=== PATIENT | male | born 1935 | race Caucasian/White ===

== ENCOUNTER 2016-10-06 15:12 | Observation (INO) | payer BC, MEDICARE ==
[2016-10-06] MEDS ORDERED: SODIUM CHLORIDE 0.9% 1,000 ML IV STA (15:51)
[2016-10-06 16:15] LABS: Basophils % (A) 0 %; CH 28.8; CHCM 31.8; Eosinophils # (A) 0.1 k/uL (0-0.7); Eosinophils % (A) 1 %; HCT 46.7 % (39.0-53.0); HDW 2.31; Luc # (Auto) 0.18; Luc % (Auto) 2; Lymphocytes # (A) 1.5 k/uL (1.0-4.8); Lymphocytes % (A) 16 %; MCH 29.1 pg (25.0-35.0); MCV 90.9 fL (80.0-100.0); Mean Platelet Volume 7.2; Monocytes # (A) 0.8 k/uL (0-1.0); Monocytes % (A) 8 %; Neutrophils % (A) 73 %; RBC 5.14 m/uL (4.30-5.90); RDW 12.4 % (11.5-15.5); WBC 9.6 k/uL (3.8-10.6); WBC (Perox) 9.75
[2016-10-06 16:29] LABS: ALT 33 U/L (21-72); AST 40 U/L (17-59); Alkaline Phosphatase 93 U/L (38-126); Anion Gap 14 mmol/L; Blood Urea Nitrogen 14 mg/dL (9-20); Calcium 9.3 mg/dL (8.4-10.2); Carbon Dioxide 24 mmol/L (22-30); Chloride 103 mmol/L (98-107); Glucose 91 mg/dL (74-99); Magnesium 2.1 mg/dL (1.6-2.3); Non-African American GFR(MDRD) >60 (>60 ml/min/1.73 sqM); Potassium 4.5 mmol/L (3.5-5.1); Sodium 141 mmol/L (137-145); Total Bilirubin 0.6 mg/dL (0.2-1.3); Total Protein 6.8 g/dL (6.3-8.2)
--- NOTE | 2016-10-06 16:29 | ED ---
General Adult HPI - General Chief complaint: Recheck/Abnormal Lab/Rx Stated complaint: coughing up blood-sent by Time Seen by Provider: 10/06/16 15:51 Source: patient, RN notes reviewed, old records reviewed Mode of arrival: EMS Limitations: no limitations - History of Present Illness Initial comments: This is an 81-year-old male the ER for evaluation today. Patient comes in for basically episodes of hemoptysis or coughing up blood. Patient has no specific medical history. He did did have an outpatient CT and was told to come the emergency room. Patient states started with sinus congestion that he began to have episodes of vomiting blood. He denies chest pain or shortness of breath. Denies any other prior history or issues of similar symptoms. Patient states palpation CT had a positive result of likely mass and he was sent to the ER here for evaluation. Patient does admit to taking steroids recently - Related Data Home Medications Medication Instructions Recorded Confirmed Aspirin 81 mg PO DAILY 10/06/16 10/06/16 Atorvastatin [Lipitor] 40 mg PO DAILY 10/06/16 10/06/16 Docusate Sodium [Stool Softener] 100 mg PO DAILY 10/06/16 10/06/16 Enalapril [Vasotec] 10 mg PO DAILY 10/06/16 10/06/16 Metoprolol Tartrate [Lopressor] 50 mg PO DAILY 10/06/16 10/06/16 Multivitamins, Thera [Multivitamin 1 tab PO DAILY 10/06/16 10/06/16 (formulary)] [place]-3 Fatty Acids/Fish Oil [Fish 1 cap PO DAILY 10/06/16 10/06/16 Oil 1,000 mg Capsule] glyBURIDE [Diabeta] 5 mg PO DAILY 10/06/16 10/06/16 Allergies Allergy/AdvReac Type Severity Reaction Status Date / Time No Known Allergies Allergy Verified 10/06/16 15:48 Review of Systems ROS Statement: Those systems with pertinent positive or pertinent negative responses have been documented in the HPI. ROS Other: All systems not noted in ROS Statement are negative. Past Medical History Past Medical History: Diabetes Mellitus, Hyperlipidemia, Hypertension History of Any Multi-Drug Resistant Organisms: None Reported Past Surgical History: Coronary Bypass/CABG, Orthopedic Surgery, Prostate Surgery Additional Past Surgical History / Comment(s): bypass 2003, hemorrhoid sx 1976, right hand sx, rotorary cuff tear Past Psychological History: No Psychological Hx Reported Smoking Status: Former smoker Past Alcohol Use History: None Reported Past Drug Use History: None Reported General Exam Limitations: no limitations General appearance: alert, in no apparent distress Head exam: Present: atraumatic, normocephalic, normal inspection Eye exam: Present: normal appearance, PERRL, EOMI. Absent: scleral icterus, conjunctival injection, periorbital swelling ENT exam: Present: normal exam, mucous membranes moist Neck exam: Present: normal inspection. Absent: tenderness, meningismus, lymphadenopathy Respiratory exam: Present: normal lung sounds bilaterally. Absent: respiratory distress, wheezes, rales, rhonchi, stridor Cardiovascular Exam: Present: regular rate, normal rhythm, normal heart sounds. Absent: systolic murmur, diastolic murmur, rubs, gallop, clicks GI/Abdominal exam: Present: soft, normal bowel sounds. Absent: distended, tenderness, guarding, rebound, rigid Extremities exam: Present: normal inspection, full ROM, normal capillary refill. Absent: tenderness, pedal edema, joint swelling, calf tenderness Back exam: Present: normal inspection Neurological exam: Present: alert, oriented X3, CN II-XII intact Psychiatric exam: Present: normal affect, normal mood Skin exam: Present: warm, dry, intact, normal color. Absent: rash Course Vital Signs 10/06/16 10/06/16 10/06/16 15:23 16:29 17:00 Temperature 98.1 F Pulse Rate 77 73 74 Respiratory 18 18 18 Rate Blood Pressure 156/72 159/69 159/69 O2 Sat by Pulse 95 96 97 Oximetry - Reevaluation(s) Reevaluation #1: 10/06/16 17:05 Attempting to obtain patient's CAT scan done as an outpatient through [facility] Reevaluation #2: 10/06/16 17:51 Patient remains a symptomatically at this time EKG Findings - EKG Comments: EKG Findings:: EKG shows sinus rhythm rate of 76, NH 122, QRS 102, QTc 456 Medical Decision Making - Medical Decision Making 81 male the ER who is at this time is relatively asymptomatic increased cough and congestion positive hemoptysis coming in for evaluation, positive thoracic mass, lymph node mass with SVC compression. Patient be admitted for oncologic evaluation - Lab Data Result diagrams: 10/06/16 16:04 05/24/17 16:04 Lab Results 10/06/16 10/06/16 10/06/16 Range/Units 16:04 16:04 16:04 WBC 9.6 (3.8-10.6) k/uL RBC 5.14 (4.30-5.90) m/uL Hgb 15.0 (13.0-17.5) gm/dL Hct 46.7 (39.0-53.0) % MCV 90.9 (80.0-100.0) fL MCH 29.1 (25.0-35.0) pg MCHC 32.0 (31.0-37.0) g/dL RDW 12.4 (11.5-15.5) % Plt Count 192 (150-450) k/uL Neutrophils % 73 % Lymphocytes % 16 % Monocytes % 8 % Eosinophils % 1 % Basophils % 0 % Neutrophils # 7.0 (1.3-7.7) k/uL Lymphocytes # 1.5 (1.0-4.8) k/uL Monocytes # 0.8 (0-1.0) k/uL Eosinophils # 0.1 (0-0.7) k/uL Basophils # 0.0 (0-0.2) k/uL PT (9.0-12.0) sec INR (<1.1) APTT (22.0-30.0) sec Sodium 141 (137-145) mmol/L Potassium 4.5 (3.5-5.1) mmol/L Chloride 103 (98-107) mmol/L Carbon Dioxide 24 (22-30) mmol/L Anion Gap 14 mmol/L BUN 14 (9-20) mg/dL Creatinine 1.00 (0.66-1.25) mg/dL Est GFR (MDRD) Af Amer >60 (>60 ml/min/1.73 sqM) Est GFR (MDRD) Non-Af >60 (>60 ml/min/1.73 sqM) Glucose 91 (74-99) mg/dL Calcium 9.3 (8.4-10.2) mg/dL Phosphorus 4.0 (2.5-4.5) mg/dL Magnesium 2.1 (1.6-2.3) mg/dL Total Bilirubin 0.6 (0.2-1.3) mg/dL AST 40 (17-59) U/L ALT 33 (21-72) U/L Alkaline Phosphatase 93 (38-126) U/L Total Creatine Kinase 61 (55-170) U/L CK-MB (CK-2) 1.8 (0.0-2.4) ng/mL CK-MB (CK-2) Rel Index 3.0 Troponin I <0.012 (0.000-0.034) ng/mL Total Protein 6.8 (6.3-8.2) g/dL Albumin 4.1 (3.5-5.0) g/dL 10/06/16 Range/Units 16:04 WBC (3.8-10.6) k/uL RBC (4.30-5.90) m/uL Hgb (13.0-17.5) gm/dL Hct (39.0-53.0) % MCV (80.0-100.0) fL MCH (25.0-35.0) pg MCHC (31.0-37.0) g/dL RDW (11.5-15.5) % Plt Count (150-450) k/uL Neutrophils % % Lymphocytes % % Monocytes % % Eosinophils % % Basophils % % Neutrophils # (1.3-7.7) k/uL Lymphocytes # (1.0-4.8) k/uL Monocytes # (0-1.0) k/uL Eosinophils # (0-0.7) k/uL Basophils # (0-0.2) k/uL PT 11.1 (9.0-12.0) sec INR 1.1 (<1.1) APTT 23.9 (22.0-30.0) sec Sodium (137-145) mmol/L Potassium (3.5-5.1) mmol/L Chloride (98-107) mmol/L Carbon Dioxide (22-30) mmol/L Anion Gap mmol/L BUN (9-20) mg/dL Creatinine (0.66-1.25) mg/dL Est GFR (MDRD) Af Amer (>60 ml/min/1.73 sqM) Est GFR (MDRD) Non-Af (>60 ml/min/1.73 sqM) Glucose (74-99) mg/dL Calcium (8.4-10.2) mg/dL Phosphorus (2.5-4.5) mg/dL Magnesium (1.6-2.3) mg/dL Total Bilirubin (0.2-1.3) mg/dL AST (17-59) U/L ALT (21-72) U/L Alkaline Phosphatase (38-126) U/L Total Creatine Kinase (55-170) U/L CK-MB (CK-2) (0.0-2.4) ng/mL CK-MB (CK-2) Rel Index Troponin I (0.000-0.034) ng/mL Total Protein (6.3-8.2) g/dL Albumin (3.5-5.0) g/dL - Radiology Data Radiology results: report reviewed (CTA of chest does show conglomerate lymph node mass at the right paratracheal region extending to the precarinal region. It is having mass effect upon the SVC, other pulmonary nodules that suggest metastatic disease) Disposition Clinical Impression: SVC (superior vena cava obstruction) Narrative: Lymph Node Mass Disposition: ADMITTED IP TO THIS HOSP Condition: Fair Referrals: Maddi Bird MD [Primary Care Provider] - 1-2 days
[2016-10-06 16:31] LABS: INR 1.1 (<1.1); Partial Thromboplastin Time 23.9 sec (22.0-30.0); Prothrombin Time 11.1 sec (9.0-12.0)
[2016-10-06 16:33] LABS: Creatine Kinase 61 U/L (55-170)
[2016-10-06 16:46] LABS: Creatine Kinase MB 1.8 ng/mL (0.0-2.4); Troponin I <0.012 ng/mL (0.000-0.034)
[2016-10-06] MEDS ORDERED: SODIUM CHLORIDE 0.9% 1,000 ML IV ONE (17:48)
[2016-10-07] MEDS: LISINOPRIL 20 MG TAB PO SCH (08:26)
[2016-10-07] MEDS: glipiZIDE 10 MG TAB PO SCH (08:26)
[2016-10-07] MEDS: MULTIVITAMINS, THERA 1 EACH TAB PO SCH (08:26)
[2016-10-07] MEDS: ATORVASTATIN 40 MG TAB PO SCH (08:26)
[2016-10-07] MEDS: METOPROLOL TARTRATE 50 MG TAB PO SCH (08:27)
[2016-10-07] MEDS: ASPIRIN 81 MG CHEW PO SCH (08:27)
[2016-10-07] MEDS: DOCUSATE 100 MG CAP PO SCH (08:27)
[2016-10-07] MEDS ORDERED: ENOXAPARIN 40 MG/0.4 ML SYRINGE SQ SCH (09:00)
[2016-10-07] MEDS ORDERED: RX INFO: IV CONTRAST WAS GIVEN 1 EACH MISC MISCELLANE PRN (09:31)
[2016-10-07] MEDS ORDERED: DEXAMETHASONE ORAL 4 MG/ML VIAL PO SCH (09:45)
--- NOTE | 2016-10-07 10:32 | CT ---
EXAMINATION TYPE: CT brain w con DATE OF EXAM: 10/07/2016 10:25 AM COMPARISON: NONE HISTORY: Per patient history of lung cancer, possible mets. No complaints at time of scan CT DLP: 1081.6 mGycm Automated exposure control for dose reduction was used. CONTRAST: CT scan of the head is performed with IV Contrast, patient injected with 100 mL of Omnipaque 300. FINDINGS: There is no abnormal enhancing mass or midline shift identified. The ventricles and sulci are within normal limits in size. The globes are intact and the visualized sinuses are clear. IMPRESSION: Negative contrast enhanced head CT exam.
--- NOTE | 2016-10-07 11:26 | XR ---
EXAMINATION TYPE: XR chest 1V portable DATE OF EXAM: 10/07/2016 11:05 AM HISTORY: hemoptysis. REFERENCE: NONE. FINDINGS: The lungs are overinflated but clear. Pleural spaces are clear. Heart size is normal. IMPRESSION: COPD.
[2016-10-07] MEDS: DEXAMETHASONE 4 MG TAB PO SCH ×3 (11:51→23:33)
[2016-10-07] MEDS: PANTOPRAZOLE 40 MG/10 ML VIAL IVP SCH ×2 (11:52→20:41)
--- NOTE | 2016-10-07 12:19 | P.CNPUL ---
History of Present Illness Consult date: 10/07/16 Requesting physician: Aramis Dickerson Reason for consult: other (hemoptysis, abnormal CT of the chest.) Chief complaint: coughing up blood, and weight loss. History of present illness: this is an 81-year-old white male, remote smoking history, however he quit back over 40 years ago. Patient presented to his primary care physician with intermittent episodes of blood-tinged sputum for the last 5 days. He also mentioned a weight loss of 20 pounds over the last 6 months. Had no other symptoms, no fever no chills no chest pain. No nausea no vomiting no abdominal pain. Patient had a CT of the chest which clearly showed significantright paratracheal lymphadenopathy, and multiple pulmonary nodules as well as subcarinal lymphadenopathy. Patient was advised to come to the ER, and I was asked to see him on consultation.CT of the brain was done on admission and was basically negative.chest x-ray is suggestive of right paratracheal fullness, but apparently not as obvious as was reported on the CT of the chest. Unfortunately I have no access to the CT of the chest itself, but I was able to review the report which was sent with the patient. Family was advised to bring the CD from [facility] for review, I am planning bronchoscopy on this patient tomorrow in a.m.patient denies any headaches no blurred vision no dizziness. No chest pain no palpitations, no fever no chills, no shortness of breath, he does have mostly symptoms of hemoptysis. Denies any nausea or vomiting or abdominal pain, no melena no hematemesis is no dysuria frequency and urgency. Patient reports a weight loss of 20 pounds in the last 6 months. Review of Systems 14 point review of systems were obtained, please refer to pertinent positives and negatives in HPI. Past Medical History Past Medical History: Coronary Artery Disease (CAD), Diabetes Mellitus, Hyperlipidemia, Hypertension Additional Past Medical History / Comment(s): "leaky valve", shingles rt side 2012-has residual pain from it."torn rotator cuff-had therapy on it, "gets up at least 3 tiomes a night to urinate" History of Any Multi-Drug Resistant Organisms: None Reported Past Surgical History: Coronary Bypass/CABG, Heart Catheterization, Orthopedic Surgery, Prostate Surgery, Tonsillectomy Additional Past Surgical History / Comment(s): triple bypass 2003, hemorrhoid sx 1976, right carpal tunnel release sx, "sx to reem out prostate" Past Anesthesia/Blood Transfusion Reactions: No Reported Reaction Past Psychological History: No Psychological Hx Reported Additional Psychological History / Comment(s): PT LIVES WITH HIS MIRTA IN A SINGLE LEVEL HOME THAT HAS 2 STEPS TO ENTER. NO PETS. PT IS INDEPENDANT,NO OUTSIDE SERVICES RECEIVED, NO MEDICAL EQUIMENT. PT SERVED IN THE [employer]. RETIRED FROM [employer] -WORKED THERE FOR 39 YEARS. Smoking Status: Former smoker Past Alcohol Use History: Occasional Additional Past Alcohol Use History / Comment(s): STARTED SMOKING AT AGE 16, SMOKED 1 PPD, QUIT 2012 Past Drug Use History: None Reported - Past Family History Father Family Medical History: Myocardial Infarction ([place]) Mother Family Medical History: Congestive Heart Failure (CHF) Medications and Allergies Home Medications Medication Instructions Recorded Confirmed Type Aspirin 81 mg PO DAILY 10/06/16 10/06/16 History Atorvastatin [Lipitor] 40 mg PO DAILY 10/06/16 10/06/16 History Docusate Sodium [Stool Softener] 100 mg PO DAILY 10/06/16 10/06/16 History Enalapril [Vasotec] 10 mg PO DAILY 10/06/16 10/06/16 History Metoprolol Tartrate [Lopressor] 50 mg PO DAILY 10/06/16 10/06/16 History Multivitamins, Thera [Multivitamin 1 tab PO DAILY 10/06/16 10/06/16 History (formulary)] [place]-3 Fatty Acids/Fish Oil [Fish 1 cap PO DAILY 10/06/16 10/06/16 History Oil 1,000 mg Capsule] glyBURIDE [Diabeta] 5 mg PO DAILY 10/06/16 10/06/16 History Allergies Allergy/AdvReac Type Severity Reaction Status Date / Time No Known Allergies Allergy Verified 10/06/16 15:48 Physical Exam Vitals: Vital Signs Temp Pulse Pulse Resp BP BP Pulse Ox 10/07/16 08:00 76 20 10/07/16 07:00 97.2 F L 76 20 146/78 95 10/07/16 02:06 159/62 10/07/16 00:00 16 10/06/16 23:00 97.8 F 72 16 189/90 95 10/06/16 18:36 97.1 F L 78 18 135/65 97 10/06/16 17:00 74 18 159/69 97 10/06/16 16:29 73 18 159/69 96 10/06/16 15:23 98.1 F 77 18 156/72 95 Intake and Output 10/06/16 10/07/16 10/07/16 22:59 06:59 14:59 Intake Total 590 Output Total 700 Balance 590 -700 Intake: Oral 590 Output: Urine 700 Other: Voiding Method Toilet Toilet # Voids 2 2 Weight 99.79 kg 99.79 kg Patient Weight 10/08/16 06:59 Weight 99.79 kg Physical Exam: Revealed an 81-year-old white male in no distress. HEENT:[Neck is supple.] [No neck masses.] [No thyromegaly.] [No JVD.] Chest: [Clear throughout, no crackles, no rhonchi, no wheezes.] Cardiac Exam: [Normal S1 and S2, no S3 gallop, no murmur.] Abdomen: [Soft, nontender, no megaly, no rebound, no guarding, normal bowel sounds.] Extremities: [No clubbing, no edema, no cyanosis.] Neurological Exam: [No focal neurologic deficit.] Results - Laboratory Findings CBC and BMP: 10/06/16 16:04 10/06/16 16:04 PT/INR, D-dimer PT 11.1 sec (9.0-12.0) 10/06/16 16:04 INR 1.1 (<1.1) 10/06/16 16:04 - Diagnostic Findings Chest x-ray: image reviewed (chest x-ray is relatively unremarkable, there is a suggestion of right paratracheal fullness, however it is not as significant as reported on the CT of the chest which is not available for my review at this point.) Assessment and Plan Plan: impression: 1 hemoptysis secondary to right paratracheal mass, 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 2 remote smoking history, patient quit smoking over 40 years ago. 3 weight loss most likely secondary to underlying malignancy. 4history of multiple comorbidities including hypertension, coronary artery disease and previous CABG,type 2 diabetes, hyperlipidemia. Recommendation: Patient was advised to undergo bronchoscopy and possible biopsy , in the meantime I have instructed his family members to bring the CT of the chest to review prior to bronchoscopy tomorrow. Patient will be kept nothing by mouth tonight, and again I plan to bronchoscope the patient, possibly to a hughes needle of the right paratracheal lymphadenopathy.depending on the findings of the bronchoscopy, patient could be considered for discharge planning and follow-up on outpatient basis. Even if the bronchoscopy is not performed, patient could be considered for discharge planning and outpatient follow-up. Time with Patient: Greater than 30
[2016-10-07] MEDS ORDERED: LACTATED RINGERS 1,000 ML IV SCH (16:45)
[2016-10-07] MEDS: POLYETHYLENE GLYCOL 3350 17 GM POWD.PACK PO SCH (16:54)
--- NOTE | 2016-10-07 16:56 | P.CONS ---
History of Present Illness - Reason for Consult Consult date: 10/07/16 RUL/lymph node mass Requesting physician: Norm Esqueda - Chief Complaint hemoptysis - History of Present Illness Mr. Norton is a very pleasant male pt who presented to [facility] with hemoptysis and mild chest pressure x 1 week. He described the sputum as having "spots" of blood, denied any other bleeding, no SOB, wheezing, pleuritic chest pain, neck or facial fullness, orthopnea, exertional dyspnea, activity intolerance, headache or dizziness when changing positions, he has not had acute changes in energy levels or unrealistic fatigue, denies pain. He denies personal Hx of cancer, no sweats, masses or lymph node swellings, he has lost 20lbs over the last year but attributes that to cutting back on sugar because he is diabetic. Review of Systems All systems: negative Constitutional: Reports as per HPI Past Medical History Past Medical History: Coronary Artery Disease (CAD), Diabetes Mellitus, Hyperlipidemia, Hypertension Additional Past Medical History / Comment(s): "leaky valve", shingles rt side 2012-has residual pain from it."torn rotator cuff-had therapy on it, "gets up at least 3 tiomes a night to urinate" History of Any Multi-Drug Resistant Organisms: None Reported Past Surgical History: Coronary Bypass/CABG, Heart Catheterization, Orthopedic Surgery, Prostate Surgery, Tonsillectomy Additional Past Surgical History / Comment(s): triple bypass 2003, hemorrhoid sx 1976, right carpal tunnel release sx, "sx to reem out prostate" Past Anesthesia/Blood Transfusion Reactions: No Reported Reaction Past Psychological History: No Psychological Hx Reported Additional Psychological History / Comment(s): PT LIVES WITH HIS MIRTA IN A SINGLE LEVEL HOME THAT HAS 2 STEPS TO ENTER. NO PETS. PT IS INDEPENDANT,NO OUTSIDE SERVICES RECEIVED, NO MEDICAL EQUIMENT. PT SERVED IN THE [employer]. RETIRED FROM [employer] -WORKED THERE FOR 39 YEARS. Smoking Status: Former smoker Past Alcohol Use History: Occasional Additional Past Alcohol Use History / Comment(s): STARTED SMOKING AT AGE 16, SMOKED 1 PPD, QUIT 2012 Past Drug Use History: None Reported - Past Family History Father Family Medical History: Myocardial Infarction ([place]) Mother Family Medical History: Congestive Heart Failure (CHF) Medications and Allergies Home Medications Medication Instructions Recorded Confirmed Type Aspirin 81 mg PO DAILY 10/06/16 10/06/16 History Atorvastatin [Lipitor] 40 mg PO DAILY 10/06/16 10/06/16 History Docusate Sodium [Stool Softener] 100 mg PO DAILY 10/06/16 10/06/16 History Enalapril [Vasotec] 10 mg PO DAILY 10/06/16 10/06/16 History Metoprolol Tartrate [Lopressor] 50 mg PO DAILY 10/06/16 10/06/16 History Multivitamins, Thera [Multivitamin 1 tab PO DAILY 10/06/16 10/06/16 History (formulary)] [place]-3 Fatty Acids/Fish Oil [Fish 1 cap PO DAILY 10/06/16 10/06/16 History Oil 1,000 mg Capsule] glyBURIDE [Diabeta] 5 mg PO DAILY 10/06/16 10/06/16 History Allergies Allergy/AdvReac Type Severity Reaction Status Date / Time No Known Allergies Allergy Verified 10/06/16 15:48 Physical Exam Vitals: Vital Signs Temp Pulse Pulse Resp BP BP Pulse Ox 10/07/16 08:00 76 20 10/07/16 07:00 97.2 F L 76 20 146/78 95 10/07/16 02:06 159/62 10/07/16 00:00 16 10/06/16 23:00 97.8 F 72 16 189/90 95 10/06/16 18:36 97.1 F L 78 18 135/65 97 10/06/16 17:00 74 18 159/69 97 10/06/16 16:29 73 18 159/69 96 Intake and Output 10/07/16 10/07/16 10/07/16 06:59 14:59 22:59 Intake Total 480 Output Total 700 Balance -700 480 Intake: Oral 480 Output: Urine 700 Other: Voiding Method Toilet Toilet # Voids 3 3 Weight 99.79 kg 99.79 kg Patient Weight 10/08/16 06:59 Weight 99.79 kg - Constitutional General appearance: average body habitus, cooperative, no acute distress - EENT Eyes: anicteric sclerae, EOMI, PERRLA, normal appearance ENT: hearing grossly normal, normal oropharynx - Neck no JVD at 45 degrees, no carotid/vascular engorgement, facial flushing or swelling supine Neck: no lymphadenopathy - Respiratory no orthopnea Respiratory: right: diminished (base), left: CTA - Cardiovascular Rhythm: regular Heart sounds: normal: S1, S2 leg Peripheral Edema: bilateral: None - Gastrointestinal General gastrointestinal: no absent bowel sounds, no decreased bowel sounds, no distended, no hepatomegaly, no hyperactive bowel sounds, normal bowel sounds, no organomegaly, no rigid, no scaphoid, soft, no splenomegaly, no tenderness, no umbilical hernia, no ventral hernia - Integumentary Integumentary: normal - Neurologic Neurologic: CNII-XII intact - Musculoskeletal Musculoskeletal: strength equal bilaterally - Psychiatric Psychiatric: A&O x's 3, appropriate affect, intact judgment & insight Results CBC & Chem 7: 10/06/16 16:04 10/06/16 16:04 Chest x-ray: report reviewed CT scan - chest: report reviewed (written report from Amanda) Assessment and Plan (1) Lung mass Narrative/Plan: Pulmonary note reviewed and did discuss case with DNP. They will review CT and sched bronch if appropriate. If pt is not felt to be a candidate for bronch then Dr. Bell would like pt seen by Thoracic surgeon and have medistinoscopy performed so tissue biopsy can be obtained prior to discharge. Status: Acute (2) SVC (superior vena cava obstruction) Narrative/Plan: Pt does not have acute signs and is asymptomatic, SVC is not obstructed. Steroids have been initiated, no further intervention necessary at this time. Status: Acute Plan: After procedures pt is ok from Hem/Onc standpoint to be discharged with follow up in 1 week for results.
--- NOTE | 2016-10-07 21:16 | HP ---
DATE OF ADMISSION: 10/06/2016 PRESENTING COMPLAINT: Coughing up blood. HISTORY OF PRESENT COMPLAINT: This is a pleasant 81-year-old patient of Dr. Bird. Chronic stable medical conditions include coronary artery disease, diabetes, hypertension, hyperlipidemia. Patient with 5 days of coughing up blood presented to [facility] and did have CT scan done there and was transferred done here. Patient has been trying to lose some weight and has lost some weight. Appetite is maintained. CAT scan reported that there is some lymphadenopathy noted. The patient denies any fever, no rattling in the chest. Patient smoked in the remote past. REVIEW OF SYSTEMS: CONSTITUTIONAL: Tired. HEENT: None. RESPIRATORY: As above. CARDIOVASCULAR: None. GASTROINTESTINAL: None. GENITOURINARY: None. MUSCULOSKELETAL: None. DERMATOLOGIC: None. HEMATOLOGIC: None. LYMPHATIC: None. PSYCHIATRY: None. NEUROLOGICAL: None. Past medical history of coronary artery disease, diabetes, hypertension, hyperlipidemia. PAST SURGICAL HISTORY: Coronary artery bypass, prostate surgery, tonsillectomy, triple bypass, hemorrhoids in 97, right carpal tunnel release. SOCIAL HISTORY: Patient is . Retired from [employer] after working 39-years. Also served in the [employer]. Patient smoked for about 25 years; stopped 40 years ago, but about a pack a day. FAMILY HISTORY: Myocardial infarction. HOME MEDICATIONS: 1. Fish oil 1 capsule p.o. daily. 2. Multivitamin 1 tablet p.o. daily. 3. Colace 100 mg p.o. daily. 4. Aspirin 81 mg p.o. daily. 5. DiaBeta 5 mg p.o. daily. 6. Lopressor 50 mg p.o. daily. 7. Vasotec 10 mg p.o. daily. 8. Lipitor 40 mg p.o. daily. ALLERGIES: None. On examination; temperature 98.1, pulse 77, respirations 18, blood pressure 123/72, pulse ox 95% on room air. GENERAL APPEARANCE: Average build, sitting up, not in distress. EYES: Pupils equal. Conjunctivae normal. HEENT: Oral cavity normal. NECK: JVD not raised. Mass not palpable. RESPIRATORY: Effort normal. LUNGS: Slightly decreased breath sounds. CARDIOVASCULAR: First and second sounds normal. No edema. ABDOMEN: Soft, nontender. Liver and spleen not palpable. LYMPHATIC: No lymph node palpable in the neck or axillae. PSYCHIATRY: Alert and oriented x3. Mood is normal. NEUROLOGICAL: Pupils equal. Cranial nerves grossly intact. Power and sensation grossly intact. INVESTIGATIONS: White count 9.6, hemoglobin 15, potassium 4.5. BUN and creatinine normal. Troponin negative. CT scan of the brain negative, contrast-induced. Chest x-ray: Lungs are overinflated. ASSESSMENT: 1. Hemoptysis in a patient whose CT scan is showing lymph nodes strongly suspicious for carcinoma of the lung. 2. Coronary artery disease with prior history of coronary artery bypass graft. 3. Diabetes mellitus type 2 on oral hypoglycemic. 4. Essential hypertension. 5. Hyperlipidemia. PLAN: Patient's home medications are resumed. Seen by Dr. Dawson from pulmonary. Plan to do bronchoscopy tomorrow. Care was discussed with the patient. Questions were answered.
[2016-10-08 01:46] VITALS: RESP 16
[2016-10-08 08:49] LABS: Glucose,Whole Blood 153 mg/dL (75-99)
[2016-10-08] MEDS: DEXAMETHASONE 4 MG TAB PO SCH ×2 (09:54→15:04)
[2016-10-08] MEDS: POLYETHYLENE GLYCOL 3350 17 GM POWD.PACK PO SCH (09:54)
[2016-10-08] MEDS: PANTOPRAZOLE 40 MG/10 ML VIAL IVP SCH (09:57)
[2016-10-08 11:07] LABS: Basophils % (A) 0 %; CH 28.5; CHCM 31.7; Eosinophils % (A) 0 %; HCT 44.2 % (39.0-53.0); HGB 14.5 gm/dL (13.0-17.5); Luc # (Auto) 0.13; Luc % (Auto) 1; Lymphocytes % (A) 7 %; MCH 29.7 pg (25.0-35.0); MCHC 32.9 g/dL (31.0-37.0); MCV 90.2 fL (80.0-100.0); Mean Platelet Volume 6.9; Monocytes # (A) 0.7 k/uL (0-1.0); Monocytes % (A) 4 %; Neutrophils # (A) 12.8 k/uL (1.3-7.7); Neutrophils % (A) 88 %; RDW 12.4 % (11.5-15.5); WBC 14.7 k/uL (3.8-10.6); WBC (Perox) 14.76
[2016-10-08 11:27] LABS: Anion Gap 12 mmol/L; Blood Urea Nitrogen 19 mg/dL (9-20); Calcium 9.1 mg/dL (8.4-10.2); Carbon Dioxide 24 mmol/L (22-30); Chloride 104 mmol/L (98-107); Glucose 170 mg/dL (74-99); Non-African American GFR(MDRD) >60 (>60 ml/min/1.73 sqM); Potassium 4.5 mmol/L (3.5-5.1); Sodium 140 mmol/L (137-145)
--- NOTE | 2016-10-08 11:35 | P.PN ---
Subjective Principal diagnosis: Hemoptysis This is an 81-year-old white male, remote smoking history, however he quit back over 40 years ago. Patient presented to his primary care physician with intermittent episodes of blood-tinged sputum for the last 5 days. He also mentioned a weight loss of 20 pounds over the last 6 months. Had no other symptoms, no fever no chills no chest pain. No nausea no vomiting no abdominal pain. Patient had a CT of the chest which clearly showed significantright paratracheal lymphadenopathy, and multiple pulmonary nodules as well as subcarinal lymphadenopathy. Patient was advised to come to the ER, and I was asked to see him on consultation.CT of the brain was done on admission and was basically negative.chest x-ray is suggestive of right paratracheal fullness, but apparently not as obvious as was reported on the CT of the chest. Unfortunately I have no access to the CT of the chest itself, but I was able to review the report which was sent with the patient. Family was advised to bring the CD from [facility] for review, I am planning bronchoscopy on this patient tomorrow in a.m.patient denies any headaches no blurred vision no dizziness. No chest pain no palpitations, no fever no chills, no shortness of breath, he does have mostly symptoms of hemoptysis. Denies any nausea or vomiting or abdominal pain, no melena no hematemesis is no dysuria frequency and urgency. Patient reports a weight loss of 20 pounds in the last 6 months. The patient is seen again today 10/08/2016 in follow-up on the regular medical floor. He is awake and alert in no acute distress. He has not had any further hemoptysis. He denies any worsening shortness of breath, cough or congestion. He is maintaining good O2 saturations in the upper 90s on room air. He's been hemodynamically stable. Afebrile. He is agreeable to bronchoscopy with biopsies today by Dr. Dawson. Objective - Vital Signs Vital signs: Vital Signs Temp 98.2 F 10/08/16 07:00 Pulse 86 10/08/16 07:00 Resp 16 10/08/16 10:07 BP 134/65 10/08/16 07:00 Pulse Ox 96 10/08/16 07:00 Intake & Output 10/07/16 10/08/1610/08/17 18:59 06:59 18:59 Intake Total 480 800 Balance 480 800 Weight 99.79 kg Intake: IV 320 Lactated Ringers 1,000 ml 320 @ 20 mls/hr IV .Q24H GÉNESIS Rx#:[id number] Oral 480 480 Other: Voiding Method Toilet Toilet # Voids 3 - Exam GENERAL EXAM: Alert, active, comfortable in no apparent distress. HEAD: Normocephalic. EYES: Normal reaction of pupils, equal size. NOSE: Clear with pink turbinates. THROAT: No erythema or exudates. NECK: No masses, no JVD. CHEST: No chest wall deformity. LUNGS: Equal air entry with no crackles, wheeze, rhonchi or dullness. CVS: S1 and S2 normal with no audible murmurs, regular rhythm. ABDOMEN: No hepatosplenomegaly, normal bowel sounds, no guarding or rigidity. SPINE: No scoliosis or deformity SKIN: No rashes CENTRAL NERVOUS SYSTEM: No focal deficits, tone is normal in all 4 extremities. Extremities: There is no significant peripheral edema. No clubbing, no cyanosis. Peripheral pulses are intact. 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 #2 Remote history of smoking, the patient did quit over 40 years ago. #3 Weight loss most likely secondary to underlying malignancy. #4 Hypertension. #5 Coronary artery disease with previous coronary bypass grafting. #6 Diabetes mellitus, type II. #7 Hyperlipidemia. Plan: The patient was seen and evaluated by Dr. Dawson. The plan is for bronchoscopy with biopsies of the right paratracheal mass today. The patient is in agreement. His family is present at the bedside. They verbalized understanding. The patient can most likely be discharged following the procedure once recovered. He will follow-up in our office in 1 week's time to review the results.
[2016-10-08 11:50] VITALS: TEMP 97.4
[2016-10-08 12:12] LABS: Glucose,Whole Blood 155 mg/dL (75-99)
[2016-10-08] MEDS ORDERED: PROPOFOL 10 MG/ML 20 ML VIAL IV ONE (12:22)
[2016-10-08] MEDS ORDERED: LIDOCAINE 1% INJ 10MG/ML (20 ML MDV) ONE (12:22)
[2016-10-08] MEDS ORDERED: GLYCOPYRROLATE 0.2 MG/ML 2 ML VIAL ONE (12:22)
[2016-10-08] MEDS ORDERED: MIDAZOLAM 2 MG/2 ML VIAL ONE (12:22)
[2016-10-08] MEDS ORDERED: KETAMINE 10 MG/ML 20 ML VIAL ONE (12:22)
[2016-10-08] MEDS ORDERED: LACTATED RINGERS 1,000 ML IV ONE (12:23)
--- NOTE | 2016-10-08 13:50 | PCN ---
DATE OF PROCEDURE: OPERATIVE REPORT: Bronchoscopy, transtracheal needle aspiration of right paratracheal mass, core biopsies from right paratracheal mass, brushings of distal tracheal tumor. SURGEON: Dr. Dawson. RECLAMATION SUPERVISOR: Dr. Sy. ANESTHESIA USED: IV conscious sedation. Please refer to the full report and documentation by the WO[employer] SORTER. PROCEDURE: Patient was placed in a supine position. O2 was applied, pulse oximetry was monitored continuously. Blood pressure was intermittently monitored and cardiac rhythm was continuously monitored. After adequate IV conscious sedation, the right naris was anesthetized with topical lidocaine. Then the bronchoscope was advanced through the right naris down to the area of the vocal cords, which were noted to be patent. Lidocaine was applied over the vocal cords, and the bronchoscope was advanced further down to the trachea. Trachea was noted to be narrowed and there was definite extrinsic compression from the right side on the tracheal wall. However, as we reached the distal end of the trachea, there was evidence of a tumor tissue eroding into the distal tracheal wall on the right side. The tracheal ( ) was all noted to be hyperemic. Then examination of the cici was done and it was noted to be full with anterior fullness. There was no evidence of lesions in the right upper lobe, right middle lobe, right lower lobe. No evidence of any tumors in the left upper lobe, lingula, and left lower lobe. Then multiple transtracheal passes were done at the distal end of the trachea just above the cici. Most of them were through the right tracheal wall distally. Cytology was examined by the pathologist at bedside. Then 2 core biopsies were also done using the same technique utilizing a Arteaga needle. Brushings of the tumor eroding into the distal tracheal wall was also done. Procedure was well tolerated. Blood loss no more than 10 mL total of blood loss noted throughout the whole procedure. No evidence of any immediate complications. Findings were discussed with the family, and discussed with the radiation oncologist who will be following up on the patient. Discussed also the findings with the admitting physician, Dr. Dickerson. Patient will be discharged home today and he will follow up with me in 5 days.
[2016-10-08 14:32] VITALS: BP 151/91; PULSE 74
--- NOTE | 2016-10-08 14:50 | P.CONS ---
History of Present Illness - Reason for Consult Consult date: 10/08/16 Mediastinal mass Requesting physician: Janneth Dawson - Chief Complaint hemoptysis - History of Present Illness The patient is an 81-year-old male with a history of hemoptysis 5 days. He has a [id number] smoking history, but reports quitting approximately 40 years ago. His primary care physician ordered a CT scan of the chest, which was performed at an outside institution. Study revealed a right paratracheal lymph node conglomerate, 8.6 x 4.4 cm, there was mass effect on the SVC without complete compression. There were multiple lung nodules, including a 2 cm right lower lobe, an 8 mm left upper lobe nodule and 2 other sub-5 mm nodules. The patient was recommended to proceed to the hospital for further evaluation. He was admitted to [facility] on October 07, 2016. A CT scan of the brain was performed and was unremarkable, as well as a chest x-ray. The patient reports that he has had no significant changes in his breathing recently, but he does report an approximate 20, weight loss in the past 6 months. Review of Systems Eyes: denies blurred vision Ears: deny: decreased hearing Ears, nose, mouth and throat: Denies neck lump Cardiovascular: Denies chest pain, Denies dyspnea on exertion Respiratory: Reports hemoptysis Gastrointestinal: Denies abdominal pain Neurological: Denies ataxia, Denies confusion Past Medical History Past Medical History: Coronary Artery Disease (CAD), Diabetes Mellitus, Hyperlipidemia, Hypertension Additional Past Medical History / Comment(s): "leaky valve", shingles rt side 2012-has residual pain from it."torn rotator cuff-had therapy on it, "gets up at least 3 tiomes a night to urinate" History of Any Multi-Drug Resistant Organisms: None Reported Past Surgical History: Coronary Bypass/CABG, Heart Catheterization, Orthopedic Surgery, Prostate Surgery, Tonsillectomy Additional Past Surgical History / Comment(s): triple bypass 2003, hemorrhoid sx 1976, right carpal tunnel release sx, "sx to reem out prostate" Past Anesthesia/Blood Transfusion Reactions: No Reported Reaction Past Psychological History: No Psychological Hx Reported Additional Psychological History / Comment(s): PT LIVES WITH HIS ADA IN A SINGLE LEVEL HOME THAT HAS 2 STEPS TO ENTER. NO PETS. PT IS INDEPENDANT,NO OUTSIDE SERVICES RECEIVED, NO MEDICAL EQUIMENT. PT SERVED IN THE [employer]. RETIRED FROM [employer] -WORKED THERE FOR 39 YEARS. Smoking Status: Former smoker Past Alcohol Use History: Occasional Additional Past Alcohol Use History / Comment(s): STARTED SMOKING AT AGE 16, SMOKED 1 PPD, QUIT 2012 Past Drug Use History: None Reported - Past Family History Father Family Medical History: Myocardial Infarction ([place]) Mother Family Medical History: Congestive Heart Failure (CHF) Medications and Allergies Home Medications Medication Instructions Recorded Confirmed Type Aspirin 81 mg PO DAILY 10/06/16 10/06/16 History Atorvastatin [Lipitor] 40 mg PO DAILY 10/06/16 10/06/16 History Docusate Sodium [Stool Softener] 100 mg PO DAILY 10/06/16 10/06/16 History Enalapril [Vasotec] 10 mg PO DAILY 10/06/16 10/06/16 History Metoprolol Tartrate [Lopressor] 50 mg PO DAILY 10/06/16 10/06/16 History Multivitamins, Thera [Multivitamin 1 tab PO DAILY 10/06/16 10/06/16 History (formulary)] [place]-3 Fatty Acids/Fish Oil [Fish 1 cap PO DAILY 10/06/16 10/06/16 History Oil 1,000 mg Capsule] glyBURIDE [Diabeta] 5 mg PO DAILY 10/06/16 10/06/16 History Allergies Allergy/AdvReac Type Severity Reaction Status Date / Time No Known Allergies Allergy Verified 10/06/16 15:48 Physical Exam Vitals: Vital Signs Temp Pulse Resp BP Pulse Ox 10/08/16 13:30 83 16 150/85 99 10/08/16 11:49 97.4 F L 87 16 117/72 97 10/08/16 11:45 97.4 F L 87 16 117/72 97 10/08/16 10:07 16 10/08/16 07:00 98.2 F 86 16 134/65 96 10/07/16 23:00 97.0 F L 85 16 131/66 94 L 10/07/16 16:00 76 20 10/07/16 15:00 98.3 F 62 20 121/66 96 Intake and Output 10/07/16 10/08/16 10/08/16 22:59 06:59 14:59 Intake Total 640 160 350 Balance 640 160 350 Intake: IV 160 160 350 Lactated Ringers 1,000 ml 160 160 @ 20 mls/hr IV .Q24H GÉNESIS Rx#:[id number] Oral 480 Other: Voiding Method Toilet Toilet # Voids 3 Weight 99.79 kg - Constitutional General appearance: average body habitus, no acute distress - EENT Eyes: EOMI, PERRLA - Neck Neck: no lymphadenopathy, normal ROM - Respiratory Respiratory: bilateral: CTA - Cardiovascular Rhythm: regular Heart sounds: normal: S1, S2 - Gastrointestinal General gastrointestinal: no distended, no tenderness - Integumentary Integumentary: no calor - Neurologic Neurologic: CNII-XII intact - Musculoskeletal Musculoskeletal: strength equal bilaterally - Psychiatric Psychiatric: A&O x's 3 Results CBC & Chem 7: 10/08/16 10:50 10/08/16 10:50 Labs: Abnormal Lab Results - Last 24 Hours (Table) 10/08/16 10/08/16 10/08/16 Range/Units 08:47 10:50 10:50 WBC 14.7 H (3.8-10.6) k/uL Neutrophils # 12.8 H (1.3-7.7) k/uL Glucose 170 H (74-99) mg/dL POC Glucose (mg/dL) 153 H (75-99) mg/dL 10/08/16 Range/Units 12:08 WBC (3.8-10.6) k/uL Neutrophils # (1.3-7.7) k/uL Glucose (74-99) mg/dL POC Glucose (mg/dL) 155 H (75-99) mg/dL Chest x-ray: report reviewed CT scan - chest: report reviewed, image reviewed CT Scan - head: report reviewed Assessment and Plan (1) Lung mass Status: Acute Plan: 1. Abnormal lymphadenopathy of the mediastinum: I discussed with the patient, as well as his and family who were in the room, that we do not know the pathology of his tumor at this time. The patient has just undergone bronchoscopy with biopsy earlier today. I did express, that the CT scan report sounded very suspicious for malignancy. I explained to the patient, that radiotherapy may end up being part of this treatment course, but that he would require further workup. After receiving his final pathology, the patient will likely also need to undergo PET/CT for systemic staging. The patient's CT scan does reveal partial compression of the superior vena cava , but the patient is asymptomatic at this time. I recommend the patient return to our clinic in approximately one to 2 weeks when he has had further workup. Time with Patient: Greater than 30
[2016-10-08] MEDS: ASPIRIN 81 MG CHEW PO SCH (15:02)
[2016-10-08] MEDS: DOCUSATE 100 MG CAP PO SCH (15:02)
[2016-10-08] MEDS: ATORVASTATIN 40 MG TAB PO SCH (15:02)
[2016-10-08] MEDS: METOPROLOL TARTRATE 50 MG TAB PO SCH (15:03)
[2016-10-08] MEDS: glipiZIDE 10 MG TAB PO SCH (15:03)
[2016-10-08] MEDS: LISINOPRIL 20 MG TAB PO SCH (15:03)
[2016-10-08] MEDS: MULTIVITAMINS, THERA 1 EACH TAB PO SCH (15:03)
--- NOTE | 2016-10-08 15:31 | P.PN ---
Subjective Principal diagnosis: right hilar mass Pt seen today post bronch with Dr. Dawson. He denies nausea, has tolerated clear liquids, throat is a little sore, denies SOB, does not feel like he has to use the bathroom, denies feeling constipated. He wants to go home. Objective - Vital Signs Vital signs: Vital Signs Temp 97.4 F L 10/08/16 11:49 Pulse 74 10/08/16 14:32 Resp 16 10/08/16 13:45 BP 151/91 10/08/16 14:32 Pulse Ox 96 10/08/16 14:32 Intake & Output 10/07/16 10/08/16 10/08/16 18:59 06:59 18:59 Intake Total 480 800 510 Balance 480 800 510 Weight 99.79 kg Intake: IV 320 510 Lactated Ringers 1,000 ml 320 160 @ 20 mls/hr IV .Q24H GÉNESIS Rx#:[id number] Oral 480 480 Other: Voiding Method Toilet Toilet # Voids 3 - Exam Pt sitting up in bed, NAD, respirations even and unlabored - Constitutional General appearance: Present: average body habitus, cooperative, no acute distress - Labs CBC & Chem 7: 10/08/16 10:50 10/08/16 10:50 Labs: Abnormal Lab Results - Last 24 Hours (Table) 10/08/16 10/08/16 10/08/16 Range/Units 08:47 10:50 10:50 WBC 14.7 H (3.8-10.6) k/uL Neutrophils # 12.8 H (1.3-7.7) k/uL Glucose 170 H (74-99) mg/dL POC Glucose (mg/dL) 153 H (75-99) mg/dL 10/08/16 Range/Units 12:08 WBC (3.8-10.6) k/uL Neutrophils # (1.3-7.7) k/uL Glucose (74-99) mg/dL POC Glucose (mg/dL) 155 H (75-99) mg/dL Assessment and Plan (1) Lung mass Status: Acute (2) SVC (superior vena cava obstruction) Narrative/Plan: Not acute, no acute intervention needed at this time. Status: Acute Plan: Follow up with Dr. Bell scheduled with appt date and time in chart. PET scan being sched for next Sat, pt will be contacted with time and location. It was reiterated with pt and family that pathology is pending and the PET is for staging so that when pt is seen by Dr. Bell diagnosis, prognosis and plan for treatment can be discussed. We also reviewed CT head showing no metastatic disease. All questions answered, pt ok from Hem/Onc standpoint for discharge once cleared by Attending and Consulting Physicians.
--- NOTE | 2016-10-08 22:53 | DS ---
DATE OF ADMISSION: 10/06/2016 DATE OF DISCHARGE: 10/08/2016 FINAL DIAGNOSES: 1. Lung mass causing hemoptysis, present on admission, suspicious for carcinoma of the lung. 2. Coronary artery disease with prior history of coronary artery bypass. 3. Diabetes mellitus, type 2, on oral hypoglycemic. 4. Essential hypertension. 5. Hyperlipidemia. PROCEDURE: Bronchoscopy with biopsy. CONSULTATION: Dr. Dawson from Pulmonary. HOSPITAL COURSE: This patient presented from [facility] with hemoptysis. CT scan at [facility] suggested lung masses. Did undergo bronchoscopy with biopsy, results of which are pending. Patient has hemoptysis today. I discussed the results with Dr. Dawson. Also ( ) to patient and his family; did explain that some coughing up of blood is not unusual. Patient was also seen by Dr. Pittman from Radiation Oncology and Shasha Garcia from Oncology/Dr. Bell. DISCHARGE MEDICATIONS: 1. Aspirin 81 mg p.o. daily. 2. Lipitor 40 mg p.o. daily. 3. Stool softener 100 mg p.o. daily. 4. Vasotec 10 mg p.o. daily. 5. Lopressor 50 mg p.o. daily. 6. Multivitamin 1 tablet p.o. daily. 7. Fish oil 1000 mg p.o. daily. 8. DiaBeta 5 mg p.o. daily. 9. Dexamethasone 4 mg p.o. t.i.d. Patient is hold off aspirin until hemoptysis ( ) present. Follow up with Dr. Dawson on October 22, 2016. Follow up with Dr. Bell on October 19, 2016. Follow up with Dr. Aguilar Pittman on October 18, 2016. Follow up with Dr. Maddi Bird in a week. Discharge planning more than 35 minutes.
--- NOTE | 2016-11-05 13:50 | DS ---
DATE OF ADMISSION: 10/06/2016 DATE OF DISCHARGE: 10/08/2016 ADDENDUM: ON EXAM: LUNGS: Decreased breath sounds. CARDIOVASCULAR: First and second sounds normal. PSYCH: Alert, oriented x3. Mood and affect normal.
== END 2016-10-08 16:15 | disposition home or self-care (01) ==
LOC: EC 15:12 → 5MS5E 17:48
PROVIDERS: ADMIT Hospitalist; ATTEND Hospitalist
DX: R04.2 Hemoptysis (principal); R91.8 Other nonspecific abnormal finding of lung field; I25.10 Atherosclerotic heart disease of native coronary artery without angina pectoris; E11.9 Type 2 diabetes mellitus without complications; I10 Essential (primary) hypertension; E78.5 Hyperlipidemia, unspecified; R59.9 Enlarged lymph nodes, unspecified; I87.1 Compression of vein; R63.4 Abnormal weight loss; Z79.899 Other long term (current) drug therapy; Z79.82 Long term (current) use of aspirin; Z95.1 Presence of aortocoronary bypass graft; Z79.84 Long term (current) use of oral hypoglycemic drugs; Z87.891 Personal history of nicotine dependence; Z85.118 Personal history of other malignant neoplasm of bronchus and lung; Z68.28 Body mass index [BMI] 28.0-28.9, adult; Z82.49 Family history of ischemic heart disease and other diseases of the circulatory system
CPT/HCPCS: 96376 ×2; 96361 ×3; 96372; 96374; 99285; 36415; 93005; 88104; 88305; 88173; 80053; 80048; 82550; 82553; 83735; 84100; 84484; 85025 ×2; 85610; 85730; 88342; 88341; 71010; 70460; 31629; 31623; G0378 ×3; J8540 ×2; J2250; J2001; J1650; Q9967; J2704; C9113 ×2

== ENCOUNTER → 2016-10-16 | Outpatient (CLI) | payer MEDICARE ==
--- NOTE | 2016-10-18 08:51 | PE ---
Nuclear medicine PET/CT HISTORY: R 91.1, solitary pulmonary nodule Patient received 15.4 mCi F-18 FDG intravenously. Delayed scanning performed from the skull base to t he mid thighs. Localization and attenuation correction CT scan was performed. Correlation to chest CT 10/06/2016 Neck and chest: No evident neck adenopathy however left lobe of thyroid shows hypermetabolic uptake, there may be underlying nodules, suggest additional workup, SUV 10.3. There is extensive mediastinal confluent soft tissue compatible with adenopathy encasing the trachea as noted on CT. Superior medias tinal adenopathy is present bilaterally. Abnormal soft tissue also present in the aorticopulmonary wi ndow. Abnormal subcarinal soft tissue present. SUV range is 6-19. There are coronary artery calcifi cations are present. No pleural pericardial effusion, the heart is enlarged. Soft tissue mass present in the right lower lobe measures 17 mm. There is associated hypermetabolic uptake, SUV is 7.6, left upper lobe lung nodule measures 1 cm without increased uptake. Patient is post median sternotomy. Abdomen pelvis: No retroperitoneal adenopathy. No evident adrenal mass. No suspicious hypermetabolic uptake. Suspect large duodenal diverticulum. Probable physiologic uptake along the bowel. Osseous structures are unremarkable IMPRESSION: Extensive mediastinal uptake. Bilateral lung nodules as described. Findings in the left t hyroid gland as described, follow-up recommended. Additional findings above.
== END | disposition home or self-care (01) ==
LOC: RADPETMAIN 14:53
PROVIDERS: ATTEND Internal Medicine Hematology & Oncology
DX: R91.8 Other nonspecific abnormal finding of lung field (principal)
CPT/HCPCS: 78815; A9552

== ENCOUNTER → 2016-10-25 | Outpatient (CLI) | payer MEDICARE ==
[2016-10-25 13:47] LABS: EKG EKG PERFORMED
[2016-10-25 14:30] LABS: Basophils % (A) 0 %; CH 28.6; CHCM 31.2; Eosinophils % (A) 0 %; HCT 47.4 % (39.0-53.0); HDW 2.13; HGB 14.8 gm/dL (13.0-17.5); Luc # (Auto) 0.12; Luc % (Auto) 1; Lymphocytes # (A) 0.9 k/uL (1.0-4.8); Lymphocytes % (A) 9 %; MCH 28.9 pg (25.0-35.0); MCHC 31.3 g/dL (31.0-37.0); MCV 92.1 fL (80.0-100.0); Mean Platelet Volume 7.7; Monocytes # (A) 0.5 k/uL (0-1.0); Monocytes % (A) 5 %; Neutrophils # (A) 8.3 k/uL (1.3-7.7); Neutrophils % (A) 84 %; RBC 5.14 m/uL (4.30-5.90); RDW 12.6 % (11.5-15.5); WBC 9.9 k/uL (3.8-10.6); WBC (Perox) 10.04
[2016-10-25 14:41] LABS: Anion Gap 12 mmol/L; Blood Urea Nitrogen 22 mg/dL (9-20); Carbon Dioxide 26 mmol/L (22-30); Chloride 100 mmol/L (98-107); Non-African American GFR(MDRD) >60 (>60 ml/min/1.73 sqM); Potassium 5.5 mmol/L (3.5-5.1); Sodium 138 mmol/L (137-145)
[2016-10-25 14:44] LABS: Prothrombin Time 10.6 sec (9.0-12.0)
[2016-10-25 15:06] LABS: Partial Thromboplastin Time 21.3 sec (22.0-30.0)
== END | disposition home or self-care (01) ==
LOC: LABPAT 13:38
PROVIDERS: ATTEND Surgery
DX: Z01.810 Encounter for preprocedural cardiovascular examination (principal); R59.0 Localized enlarged lymph nodes; Z01.812 Encounter for preprocedural laboratory examination
CPT/HCPCS: 80051; 82565; 84520; 85025; 85610; 85730; 86850; 86900; 86901; 93005

== ENCOUNTER 2016-10-26 10:30 | Day surgery (SDC) | payer MEDICARE ==
[~2016-10-26 10:30] MED LIST: Pre Op ABX Message 1 EACH MISC MISCELLANE ONE
[2016-10-26 11:26] LABS: Glucose,Whole Blood 115 mg/dL (75-99)
[2016-10-26] MEDS: ONDANSETRON 4 MG/2 ML VIAL IVP PRN (11:35)
[2016-10-26] MEDS: LIDOCAINE 1% 20 ML VIAL (10MG/ML) FOR IV START INTRADERMA PRN (11:36)
[2016-10-26] MEDS: LACTATED RINGERS 1,000 ML IV SCH (11:36)
[2016-10-26] MEDS: FAMOTIDINE 20 MG/2 ML VIAL IV PRN (11:36)
[2016-10-26] MEDS: METOPROLOL TARTRATE 5 MG/5 ML VIAL IVP ONE (11:45)
[2016-10-26] MEDS: MIDAZOLAM 2 MG/2 ML VIAL IVP ONE (12:55)
[2016-10-26] MEDS ORDERED: LIDOCAINE 1% INJ 10MG/ML (20 ML MDV) ONE (13:23)
[2016-10-26] MEDS ORDERED: ROCURONIUM BROMIDE 10 MG/ML 10 ML VIAL IV ONE (13:23)
[2016-10-26] MEDS ORDERED: fentaNYL (PF) 50 MCG/ML 2 ML AMP ONE (13:23)
[2016-10-26] MEDS ORDERED: MIDAZOLAM 2 MG/2 ML VIAL ONE (13:23)
[2016-10-26] MEDS ORDERED: GLYCOPYRROLATE 0.2 MG/ML 2 ML VIAL ONE (13:23)
[2016-10-26] MEDS ORDERED: PROPOFOL 10 MG/ML 20 ML VIAL IV ONE (13:23)
[2016-10-26] MEDS ORDERED: NEOSTIGMINE 1 MG/ML 10 ML VIAL ONE (13:23)
[2016-10-26] MEDS: SODIUM CHLORIDE 0.9% 50 ML with ceFAZolin 2,000 MG IV ONE ×2 (13:39)
[2016-10-26] MEDS: LACTATED RINGERS 1,000 ML IV ONE ×2 (14:42→16:08)
[2016-10-26 15:26] VITALS: TEMP 97.6
--- NOTE | 2016-10-26 15:40 | XR ---
EXAMINATION TYPE: XR chest 1V portable DATE OF EXAM: 10/26/2016 COMPARISON: 10/07/2016 HISTORY: Postop mediastinoscopy TECHNIQUE: Single frontal view of the chest is obtained. FINDINGS: Mediastinal enlargement compatible with a history of adenopathy. Pulmonary nodules noted b ilaterally. Underlying COPD and postoperative changes seen with no pleural effusion or pneumothorax. Arthropathy of the shoulders. Small amount of pneumomediastinum on the right suspected. IMPRESSION: 1. Suspect a small amount of pneumomediastinum on the right which may be postprocedural. 2. No pneumothorax. 3. Mediastinal enlargement compatible with adenopathy with pulmonary nodules as previously discussed. A Red message has been communicated to Varsha Mock via the [employer] Critical Result system on 10/26/2016 3:37 PM, Message ID [id number].
[2016-10-26] MEDS: HYDROmorphone 1 MG/ML 1 ML SYRINGE IVP PRN (15:56)
[2016-10-26] MEDS: LABETALOL 5 MG/ML VIAL MDV IVP ONE (16:04)
[2016-10-26 16:18] VITALS: RESP 16
[2016-10-26 17:13] VITALS: BP 153/74; PULSE 77
--- NOTE | 2016-10-27 07:37 | OP ---
DATE OF SERVICE: 10/26/2016 SURGEON: Ebenezer Anderson MD MARKETING TECHNOLOGY SPECIALIST: Werner Dixon MD PREOPERATIVE DIAGNOSIS: Mediastinal mass. POSTOPERATIVE DIAGNOSIS: Mediastinal mass. OPERATION: Mediastinoscopy with biopsy. ANESTHESIA: General. ESTIMATED BLOOD LOSS: Minimal. SPECIMENS REMOVED: Mediastinal mass. COMPLICATIONS: None. OPERATIVE FINDINGS: INDICATION: The patient is an 81-year-old male with history of multiple medical problems including coronary artery disease, status post coronary bypass surgery who was found to have a mediastinal mass. A Arteaga needle biopsy was attempted but was nondiagnostic. Mediastinoscopy was requested. The risks and benefits, alternatives to this procedure discussed with patient and his family members. All of their questions were answered. Consent was obtained. FINDINGS: There was a fleshy mass noted in the mediastinum, which was encasing the innominate artery. PROCEDURE IN DETAIL: The patient was taken the operating room, placed supine on operating table. After induction of general anesthesia, he was prepped and draped in the usual sterile fashion. Given his advanced age and likely degree of cervical stenosis, he was unable to extend his neck very well. This made access to the mediastinum somewhat difficult. A cervical collar incision was made approximately one fingerbreadth above the sternal notch. Dissection was taken down through subcutaneous tissue. Staying in the midline, the strap muscles were divided. The trachea was identified. The pretracheal fascia was incised using scissors. Blunt dissection was performed taking care to stay just anterior to the trachea. The innominate artery was easily palpated. Just beyond this vessel there were dense adhesions noted. The mediastinascope was inserted. Dissection was attempted at the level of the innominate artery. However, the adhesions were quite dense. CT scan revealed that the mass did extend superiorly and was encasing the innominate artery. This area was identified and additional dissection was performed in this area. The mass was noted to be around this innominate artery. A needle was inserted and aspirated. There was no return of blood. Biopsy of this mass were then performed. 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 Additional specimens were sent for permanent section as well microbiology. Hemostasis was assured. The wound was then closed in layers. A sterile dressing was applied. The patient appeared to tolerate procedure well. There were no immediate complications. He was extubated at completion of the case and returned to the recovery room in stable condition. [facility]
== END 2016-10-26 17:33 | disposition home or self-care (01) ==
LOC: OR 10:30
PROVIDERS: ATTEND Surgery
DX: R59.0 Localized enlarged lymph nodes (principal); E78.5 Hyperlipidemia, unspecified; I25.10 Atherosclerotic heart disease of native coronary artery without angina pectoris; Z95.1 Presence of aortocoronary bypass graft; Z79.899 Other long term (current) drug therapy
CPT/HCPCS: 88305; 84132; 88342; 88331; 88341; 87070; 87205; 87075; 87102; 71010; 39401; J2250; J2710; J2405; J2001; J3010; J1170; J0690; J2704

== ENCOUNTER 2016-11-09 08:56 | Day surgery (SDC) | payer MEDICARE ==
[2016-11-08 11:25] VITALS: BMI 25.4
[~2016-11-09 08:56] MED LIST changes: +HYDROmorphone 1 MG/ML 1 ML SYRINGE IVP PRN; +LACTATED RINGERS 1,000 ML IV SCH; +MIDAZOLAM 2 MG/2 ML VIAL IV PRN; -Pre Op ABX Message 1 EACH MISC MISCELLANE ONE; +ceFAZolin 2 GM in SODIUM CHLORIDE 0.9% 100 ML IVPB ONE
[2016-11-09] MEDS ORDERED: LIDOCAINE 1% 20 ML VIAL (10MG/ML) FOR IV START INTRADERMA ONE (09:10)
[2016-11-09] MEDS ORDERED: DEXAMETHASONE SOD PHOS (MDV) 100 MG/10 ML VIAL IVP ONE (09:28)
[2016-11-09 09:29] LABS: Glucose,Whole Blood 176 mg/dL (75-99)
[2016-11-09] MEDS ORDERED: fentaNYL (PF) 50 MCG/ML 2 ML AMP ONE (10:21)
[2016-11-09] MEDS ORDERED: MIDAZOLAM 2 MG/2 ML VIAL ONE (10:21)
[2016-11-09] MEDS ORDERED: PROPOFOL 10 MG/ML 20 ML VIAL IV ONE (10:21)
[2016-11-09] MEDS ORDERED: HEPARIN SODIUM,PORCINE 100 UNIT/ML 5 ML VIAL IV ONE (10:22)
[2016-11-09] MEDS ORDERED: LIDOCAINE (PF) 10 MG/ML 2 ML VIAL SQ ONE (10:23)
[2016-11-09] MEDS ORDERED: LACTATED RINGERS 1,000 ML IV ONE (11:07)
--- NOTE | 2016-11-09 11:42 | FL ---
Fluoroscopy HISTORY: Pain 11 seconds fluoroscopy time supplied to the referring clinician. 1 intraoperative C-arm images docum ent the procedure. See dictated report from cardiothoracic surgery.
[2016-11-09 11:47] VITALS: TEMP 97.6
--- NOTE | 2016-11-09 12:09 | XR ---
EXAMINATION TYPE: XR chest 1V portable DATE OF EXAM: 11/09/2016 COMPARISON: Prior chest x-ray 10/26/2016 HISTORY: Status post Port-A-Cath placement TECHNIQUE: Single frontal view of the chest is obtained. FINDINGS: Right-sided Port-A-Cath has been placed via a right subclavian approach. Distal tip of the catheter is overlying the superior vena cava. Patient is post median sternotomy. There is no evident pneumothorax or pleural effusion. Bilateral lung nodules are present. Mediastinum remains prominent compatible with adenopathy. Heart size is stable. IMPRESSION: No evident complication status post central venous catheter placement
[2016-11-09 12:13] LABS: Glucose,Whole Blood 159 mg/dL (75-99)
[2016-11-09 12:46] VITALS: BP 130/102; PULSE 111; RESP 20
--- NOTE | 2016-11-12 11:48 | OP ---
DATE OF SURGERY: 11/09/16 PREOPERATIVE DIAGNOSIS: Lymphoma. POSTOPERATIVE DIAGNOSIS: Lymphoma. PROCEDURE: Placement of Mediport using fluoroscopic guidance. SURGEON: Ebenezer Anderson M.D. CUPOLA WORKER: None. ANESTHESIA: Local with IV sedation. SPECIMENS: None. COMPLICATIONS: None. ESTIMATED BLOOD LOSS: Minimal. INDICATIONS: The patient is an 81-year-old male who was recently diagnosed with lymphoma. Mediport was requested for initiation of chemotherapy. The risks, and benefits and alternatives of the procedure were discussed with the patient. All questions were answered. Consent obtained. PROCEDURE IN DETAIL: The patient was taken to the operating room and placed supine on the operating table. Intravenous sedation was achieved. The chest, shoulders, and neck were prepped and draped in the usual sterile fashion. With the patient in Trendelenburg position, The right subclavian vein was accessed using a ( ) needle. A guidewire was then inserted and its position was confirmed to be in the IVC by fluoroscopy. Local anesthetic was used to numb up the skin and subcutaneous tissue. A small incision was created approximately two fingerbreadths below the right clavicle. Blunt dissection was carried down into the subcutaneous tissue above the pectoralis muscle to create a pocket. Using standard Seldinger technique, and under fluoroscopic guidance, a dilator and sheath were placed over the guidewire. The catheter was then tunneled through the subcutaneous tissue and concerted through the breakaway peel away sheath. Its position again was confirmed to be located at the junction of the SVC and right atrium using fluoroscopy. The catheter was cut to size and attached to the Mediport. The Mediport was then placed into the pocket taking care to ensure that it was below the incision. The Mediport was then secured in three places to the underlying fascia using 2-0 Prolene sutures. The pocket was copiously irrigated with warm saline solution. Hemostasis was assured. The wound was then closed in layers. Final fluoroscopy again revealed good position of the catheter, no obvious kinking and no obvious pneumothorax. Of note, the Mediport was flushed and aspirated and had good return of blood and flushed easily. The last injection was hep- saline. The patient appeared to tolerate the procedure well. There were no immediate complications. He returned to the recovery room in stable condition. [facility]
== END 2016-11-09 12:52 | disposition home or self-care (01) ==
LOC: OR 08:56
PROVIDERS: ATTEND Surgery
DX: C85.90 Non-Hodgkin lymphoma, unspecified, unspecified site (principal); I25.10 Atherosclerotic heart disease of native coronary artery without angina pectoris; I10 Essential (primary) hypertension; F17.200 Nicotine dependence, unspecified, uncomplicated; E78.5 Hyperlipidemia, unspecified; J44.9 Chronic obstructive pulmonary disease, unspecified; Z95.1 Presence of aortocoronary bypass graft; E11.9 Type 2 diabetes mellitus without complications; Z79.891 Long term (current) use of opiate analgesic; Z79.899 Other long term (current) drug therapy
CPT/HCPCS: 36561; 93005; 71010; 77001; C1788; J2250; J2001; J1642; J0690; J3010; J1100; J2704

== ENCOUNTER 2017-01-07 16:10 | Inpatient (IN) | payer MEDICARE ==
[2017-01-07] MEDS ORDERED: SODIUM CHLORIDE 0.9% 1,000 ML IV STA (17:04)
--- NOTE | 2017-01-07 17:55 | ED ---
General Adult HPI - General Chief complaint: Upper Respiratory Infection Stated complaint: Sent By -Abnormal CT results Time Seen by Provider: 01/07/17 16:44 Source: patient, RN notes reviewed, old records reviewed Mode of arrival: ambulatory Limitations: no limitations - History of Present Illness Initial comments: This is an 81 have reevaluation patient coming in today for evaluation regarding shortness of breath and chest pain. Patient had full body CAT scan showing positive pulmonary embolus and. Patient transferred to ER for evaluation regarding blood clot. Patient has no history of blood clots. No recent travel history or trauma. No known recent surgeries - Related Data Home Medications Medication Instructions Recorded Confirmed Aspirin 81 mg PO DAILY 10/06/16 01/07/17 Atorvastatin [Lipitor] 40 mg PO HS 10/06/16 01/07/17 Docusate Sodium [Stool Softener] 100 mg PO BID 10/06/16 01/07/17 Enalapril [Vasotec] 10 mg PO DAILY 10/06/16 01/07/17 Metoprolol Tartrate [Lopressor] 50 mg PO DAILY 10/06/16 01/07/17 glyBURIDE [Diabeta] 5 mg PO BID 10/06/16 01/07/17 Allergies Allergy/AdvReac Type Severity Reaction Status Date / Time No Known Allergies Allergy Verified 01/07/17 17:19 Review of Systems ROS Statement: Those systems with pertinent positive or pertinent negative responses have been documented in the HPI. ROS Other: All systems not noted in ROS Statement are negative. Past Medical History Past Medical History: Coronary Artery Disease (CAD), Cancer, Diabetes Mellitus, Hyperlipidemia, Hypertension Additional Past Medical History / Comment(s): "leaky valve", shingles rt side 2012-has residual pain from it, SOB w/exertion since recent procedure, new dx. lymphoma History of Any Multi-Drug Resistant Organisms: None Reported Past Surgical History: Coronary Bypass/CABG, Heart Catheterization, Orthopedic Surgery, Prostate Surgery, Tonsillectomy Additional Past Surgical History / Comment(s): triple bypass 2003, hemorrhoid sx 1976, right carpal tunnel release sx, mediastinoscopy w/biopsy 10-26-16 Past Anesthesia/Blood Transfusion Reactions: No Reported Reaction Past Psychological History: No Psychological Hx Reported Smoking Status: Former smoker Past Alcohol Use History: Rare Past Drug Use History: None Reported - Past Family History Father Family Medical History: Myocardial Infarction ([place]) Mother Family Medical History: Congestive Heart Failure (CHF) General Exam Limitations: no limitations General appearance: alert, in no apparent distress Head exam: Present: atraumatic, normocephalic, normal inspection Eye exam: Present: normal appearance, PERRL, EOMI. Absent: scleral icterus, conjunctival injection, periorbital swelling ENT exam: Present: normal exam, mucous membranes moist Neck exam: Present: normal inspection. Absent: tenderness, meningismus, lymphadenopathy Respiratory exam: Present: normal lung sounds bilaterally. Absent: respiratory distress, wheezes, rales, rhonchi, stridor Cardiovascular Exam: Present: regular rate, normal rhythm, normal heart sounds. Absent: systolic murmur, diastolic murmur, rubs, gallop, clicks GI/Abdominal exam: Present: soft, normal bowel sounds. Absent: distended, tenderness, guarding, rebound, rigid Extremities exam: Present: normal inspection, full ROM, normal capillary refill. Absent: tenderness, pedal edema, joint swelling, calf tenderness Back exam: Present: normal inspection Neurological exam: Present: alert, oriented X3, CN II-XII intact Psychiatric exam: Present: normal affect, normal mood Skin exam: Present: warm, dry, intact, normal color. Absent: rash Course Vital Signs 01/07/17 16:37 Temperature 97.2 F L Pulse Rate 100 Respiratory 18 Rate Blood Pressure 116/53 O2 Sat by Pulse 100 Oximetry - Reevaluation(s) Reevaluation #1: 01/07/17 18:22 CT is reviewed showing positive PE EKG Findings - EKG Comments: EKG Findings:: EKG shows normal sinus rhythm rate of 75 UT 122, QRS 100, QTC 406 Medical Decision Making - Medical Decision Making 81 emailed the ER for evaluation of positive PE. Patient we have been placed on anticoagulation and admitted for cardiopulmonary evaluation and treatment, management - Lab Data Result diagrams: 01/07/17 17:51 Lab Results 01/07/17 01/07/17 Range/Units 17:51 17:51 WBC 6.2 (3.8-10.6) k/uL RBC 3.46 L (4.30-5.90) m/uL Hgb 10.2 L (13.0-17.5) gm/dL Hct 31.9 L (39.0-53.0) % MCV 92.2 (80.0-100.0) fL MCH 29.6 (25.0-35.0) pg MCHC 32.0 (31.0-37.0) g/dL RDW 17.6 H (11.5-15.5) % Plt Count 135 L (150-450) k/uL Neutrophils % 80 % Lymphocytes % 10 % Monocytes % 7 % Eosinophils % 0 % Basophils % 1 % Neutrophils # 5.0 (1.3-7.7) k/uL Lymphocytes # 0.6 L (1.0-4.8) k/uL Monocytes # 0.5 (0-1.0) k/uL Eosinophils # 0.0 (0-0.7) k/uL Basophils # 0.0 (0-0.2) k/uL Anisocytosis Slight PT 10.8 (9.0-12.0) sec INR 1.1 (<1.2) APTT 23.2 (22.0-30.0) sec - Radiology Data Radiology results: report reviewed (CT positive PE) Disposition Clinical Impression: Pulmonary embolism Disposition: ADMITTED IP TO THIS HOSP Condition: Fair Referrals: Maddi Bird MD [Primary Care Provider] - 1-2 days
[2017-01-07 18:02] LABS: Anisocytosis Slight; Basophils % (A) 1 %; CH 30.2; Eosinophils % (A) 0 %; HCT 31.9 % (39.0-53.0); HDW 2.84; HGB 10.2 gm/dL (13.0-17.5); Luc # (Auto) 0.14; Luc % (Auto) 2; Lymphocytes # (A) 0.6 k/uL (1.0-4.8); Lymphocytes % (A) 10 %; MCH 29.6 pg (25.0-35.0); MCV 92.2 fL (80.0-100.0); Mean Platelet Volume 8.4; Monocytes # (A) 0.5 k/uL (0-1.0); Monocytes % (A) 7 %; Neutrophils % (A) 80 %; RBC 3.46 m/uL (4.30-5.90); RDW 17.6 % (11.5-15.5); WBC 6.2 k/uL (3.8-10.6); WBC (Perox) 6.41
[2017-01-07 18:08] LABS: INR 1.1 (<1.2); Partial Thromboplastin Time 23.2 sec (22.0-30.0); Prothrombin Time 10.8 sec (9.0-12.0)
[2017-01-07 18:18] LABS: ALT 29 U/L (21-72); AST 23 U/L (17-59); Alkaline Phosphatase 76 U/L (38-126); Anion Gap 8 mmol/L; Blood Urea Nitrogen 10 mg/dL (9-20); Calcium 8.7 mg/dL (8.4-10.2); Carbon Dioxide 25 mmol/L (22-30); Chloride 100 mmol/L (98-107); Glucose 218 mg/dL (74-99); Magnesium 1.7 mg/dL (1.6-2.3); Non-African American GFR(MDRD) >60 (>60 ml/min/1.73 sqM); Phosphorous 3.7 mg/dL (2.5-4.5); Potassium 4.6 mmol/L (3.5-5.1); Sodium 133 mmol/L (137-145); Total Bilirubin 0.2 mg/dL (0.2-1.3); Total Protein 5.3 g/dL (6.3-8.2)
[2017-01-07] MEDS ORDERED: HEPARIN SODIUM,PORCINE 5,000 UNIT/ML 1 ML VIAL IV PRN (18:20)
[2017-01-07] MEDS ORDERED: MORPHINE SULFATE 4 MG/ML SYRINGE IV PRN (18:20)
[2017-01-07] MEDS ORDERED: HEPARIN SODIUM,PORCINE 5,000 UNIT/ML 1 ML VIAL IV ONE (18:20)
[2017-01-07] MEDS ORDERED: NITROGLYCERIN SL TABS 0.4 MG TAB SUBLINGUAL PRN (18:20)
[2017-01-07] MEDS ORDERED: ASPIRIN 81 MG CHEW PO STA (18:20)
[2017-01-07 18:22] LABS: Creatine Kinase <20 U/L (55-170)
[2017-01-07 18:35] LABS: Creatine Kinase MB 0.9 ng/mL (0.0-2.4); Troponin I <0.012 ng/mL (0.000-0.034)
[2017-01-07] MEDS: HEPARIN SODIUM,PORCINE/D5W PMX 25,000 UNIT in DEXTROSE/WATER 1 500ML.BAG IV SCH (19:14)
[2017-01-07] MEDS: SODIUM CHLORIDE 0.9% 1,000 ML IV SCH (19:20)
[2017-01-07 20:07] LABS: Glucose,Whole Blood 171 mg/dL (75-99)
[2017-01-07 20:31] VITALS: BMI 24.9
[2017-01-07] MEDS: ATORVASTATIN 40 MG TAB PO SCH (21:27)
[2017-01-08 01:05] LABS: Creatine Kinase <20 U/L (55-170)
[2017-01-08 01:18] LABS: Creatine Kinase MB 0.9 ng/mL (0.0-2.4); Troponin I 0.019 ng/mL (0.000-0.034)
[2017-01-08] MEDS: SODIUM CHLORIDE 0.9% 1,000 ML IV SCH ×2 (05:52→15:23)
[2017-01-08 06:07] LABS: Anisocytosis Slight; Basophils % (A) 1 %; CH 30.1; CHCM 32.5; Eosinophils % (A) 0 %; HCT 28.1 % (39.0-53.0); HDW 2.84; Luc # (Auto) 0.14; Luc % (Auto) 3; Lymphocytes # (A) 0.6 k/uL (1.0-4.8); Lymphocytes % (A) 11 %; MCH 29.9 pg (25.0-35.0); MCV 93.3 fL (80.0-100.0); Mean Platelet Volume 8.2; Monocytes # (A) 0.4 k/uL (0-1.0); Monocytes % (A) 8 %; Neutrophils # (A) 3.9 k/uL (1.3-7.7); Neutrophils % (A) 77 %; RBC 3.01 m/uL (4.30-5.90); RDW 17.8 % (11.5-15.5); WBC (Perox) 5.01
[2017-01-08 06:48] LABS: Creatine Kinase <20 U/L (55-170)
[2017-01-08 07:00] LABS: Creatine Kinase MB 0.9 ng/mL (0.0-2.4); Troponin I 0.023 ng/mL (0.000-0.034)
[2017-01-08 07:11] LABS: Cholesterol 99 mg/dL (<200); HDL Cholesterol 31 mg/dL (40-60)
[2017-01-08 07:29] LABS: Glucose,Whole Blood 166 mg/dL (75-99)
--- NOTE | 2017-01-08 07:57 | P.HPIM ---
History of Present Illness H&P Date: 01/08/17 Chief Complaint: SOB This this patient is 9 years old female significant history of lymphoma according to the patient, and presented to the ER with chest pain and shortness of breath both with exertional in nature, occurred after her radiation cessation , chest pain was mild pressure-like on the left side, she presents presented to the ER computed tomography scan of the chest showed bilateral pulmonary embolus patient was started on heparin internal medicine was called to admit the patient Review of Systems Constitutional: Patient reports no fever, no chills, no weight changes, no change in appetite Eyes: Patient reports no double vision, no visual changes ENT: Patient reports no rhinorrhea, no post nasal drip, no sore throat Cardiovascular: Patient reports chest, has chronic edema edema, no palpitations , had near syncope and dizziness no orthopnea, no paroxysmal nocturnal dyspnea. Respiratory: Patient reports no dyspnea, no cough, no wheeze Gastrointestinal: Patient reports no nausea, no vomiting, no constipation, no diarrhea Genitourinary: Patient reports no dysuria, no urinary frequency, no hematuria. Musculoskeletal: Patient reports no unusual joint pain, no joint swelling or weakness. Patient reports no muscular pain. Psychiatric: Patient reports no changes in mood, no sleeping problems. Patient reports no changes in memory. Endocrine: Patient reports no thirst, no polyuria, no cold intolerance, no heat intolerance. Neurological: Patient reports no unusual paresthesias, no seizures, no paresis , no paralysis, no facila droop, no headache. Heme/Lymphatic: Patient reports no easy bruising, no bleeding tendency, no lymphadenopathy. Allergic/ Immunologic: Patient reports no recent allergic reactions or immunologic history. Skin: Patient reports no rashes or unusual lesions. Past Medical History Past Medical History: Coronary Artery Disease (CAD), Cancer, Diabetes Mellitus, Hyperlipidemia, Hypertension Additional Past Medical History / Comment(s): "leaky valve", shingles rt side 2013-has residual pain from it, SOB w/exertion since recent procedure, new dx. lymphoma with 3rd cycle of chemo completed on 12/27/16 History of Any Multi-Drug Resistant Organisms: None Reported Past Surgical History: Coronary Bypass/CABG, Heart Catheterization, Orthopedic Surgery, Prostate Surgery, Tonsillectomy Additional Past Surgical History / Comment(s): triple bypass 2003, hemorrhoid sx 1976, right carpal tunnel release sx, mediastinoscopy w/biopsy 10-26-16 Past Anesthesia/Blood Transfusion Reactions: No Reported Reaction Past Psychological History: No Psychological Hx Reported Additional Psychological History / Comment(s): PT LIVES WITH HIS MIRTA IN A SINGLE LEVEL HOME THAT HAS 2 STEPS TO ENTER. NO PETS. PT IS INDEPENDANT,NO OUTSIDE SERVICES RECEIVED, NO MEDICAL EQUIMENT. PT SERVED IN THE [employer]. RETIRED FROM [employer] -WORKED THERE FOR 39 YEARS. Smoking Status: Former smoker Past Alcohol Use History: Rare Additional Past Alcohol Use History / Comment(s): STARTED SMOKING AT AGE 16 2 quit approx 1977 Past Drug Use History: None Reported - Past Family History Father Family Medical History: Myocardial Infarction ([place]) Mother Family Medical History: Congestive Heart Failure (CHF) Medications and Allergies Home Medications Medication Instructions Recorded Confirmed Type Aspirin 81 mg PO DAILY 10/06/16 01/07/17 History Atorvastatin [Lipitor] 40 mg PO HS 10/06/16 01/07/17 History Docusate Sodium [Stool Softener] 100 mg PO BID 10/06/16 01/07/17 History Enalapril [Vasotec] 10 mg PO DAILY 10/06/16 01/07/17 History Metoprolol Tartrate [Lopressor] 50 mg PO DAILY 10/06/16 01/07/17 History glyBURIDE [Diabeta] 5 mg PO BID 10/06/16 01/07/17 History Allergies Allergy/AdvReac Type Severity Reaction Status Date / Time No Known Allergies Allergy Verified 01/07/17 17:19 Physical Exam Vitals: Vital Signs Temp Pulse Pulse Resp BP BP Pulse Ox 01/07/17 21:50 97.8 F 80 16 137/79 93 L 01/07/17 20:11 96.9 F L 73 18 145/85 100 01/07/17 19:42 96.9 F L 73 18 145/85 100 01/07/17 16:37 97.2 F L 100 18 116/53 100 Intake and Output 01/07/17 01/08/17 01/08/17 22:59 06:59 14:59 Intake Total 590 1193.4 Balance 590 1193.4 Intake: IV 203 Heparin Sodium,Porcine/ 203 D5w Pmx 25,000 unit In Dextrose/Water 1 500ml. bag @ 18 UNITS/KG/HR 32 mls/hr IV .[id number] [facility] Rx #:[id number] Intake, IV Titration 990.4 Amount Heparin Sodium,Porcine/ 190.4 D5w Pmx 25,000 unit In Dextrose/Water 1 500ml. bag @ 18 UNITS/KG/HR 32 mls/hr IV .[id number] [facility] Rx #:[id number] Sodium Chloride 0.9% 1, 800 000 ml @ 100 mls/hr IV . Q10H [facility] Rx#:[id number] Oral 590 Other: Voiding Method Toilet # Voids 2 Weight 88 kg - Constitutional General appearance: no acute distress, obese - EENT Eyes: PERRLA, no photophobia, dentition normal, no ptosis, no scleral icterus, normal appearance Ears: right: myringotomy tube (The right and the assistance of a [employer] G1 pis remember), bilateral: normal, negative: fluid - Neck Carotids: bilateral: upstroke normal Thyroid: bilateral: normal size - Respiratory Respiratory: bilateral: diminished, rales, rhonchi - Cardiovascular Rhythm: regular Heart sounds: normal: S1, S2 Abnormal Heart Sounds: no systolic murmur, no S3 Gallop - Gastrointestinal General gastrointestinal: no distended, normal bowel sounds, no organomegaly, no soft - Integumentary Integumentary: no flushed, no jaundiced, normal - Musculoskeletal Musculoskeletal: generalized weakness - Psychiatric Psychiatric: A&O x's 3, appropriate affect, intact judgment & insight Results CBC & Chem 7: 01/08/17 05:55 01/07/17 17:51 Labs: Abnormal Lab Results - Last 24 Hours (Table) 01/07/17 01/07/17 01/07/17 Range/Units 17:51 17:51 17:51 RBC 3.46 L (4.30-5.90) m/uL Hgb 10.2 L (13.0-17.5) gm/dL Hct 31.9 L (39.0-53.0) % RDW 17.6 H (11.5-15.5) % Plt Count 135 L (150-450) k/uL Lymphocytes # 0.6 L (1.0-4.8) k/uL APTT (22.0-30.0) sec Sodium 133 L (137-145) mmol/L Glucose 218 H (74-99) mg/dL POC Glucose (mg/dL) (75-99) mg/dL Total Creatine Kinase <20 L (55-170) U/L Total Protein 5.3 L (6.3-8.2) g/dL Albumin 3.2 L (3.5-5.0) g/dL 01/07/17 01/08/17 01/08/17 Range/Units 20:06 00:15 00:15 RBC (4.30-5.90) m/uL Hgb (13.0-17.5) gm/dL Hct (39.0-53.0) % RDW (11.5-15.5) % Plt Count (150-450) k/uL Lymphocytes # (1.0-4.8) k/uL APTT 161.1 H* (22.0-30.0) sec Sodium (137-145) mmol/L Glucose (74-99) mg/dL POC Glucose (mg/dL) 171 H (75-99) mg/dL Total Creatine Kinase <20 L (55-170) U/L Total Protein (6.3-8.2) g/dL Albumin (3.5-5.0) g/dL 01/08/17 Range/Units 05:55 RBC 3.01 L (4.30-5.90) m/uL Hgb 9.0 L (13.0-17.5) gm/dL Hct 28.1 L (39.0-53.0) % RDW 17.8 H (11.5-15.5) % Plt Count 111 L (150-450) k/uL Lymphocytes # 0.6 L (1.0-4.8) k/uL APTT (22.0-30.0) sec Sodium (137-145) mmol/L Glucose (74-99) mg/dL POC Glucose (mg/dL) (75-99) mg/dL Total Creatine Kinase (55-170) U/L Total Protein (6.3-8.2) g/dL Albumin (3.5-5.0) g/dL Thrombosis Risk Factor Assmnt - Choose All That Apply Any of the Below Risk Factors Present?: Yes Each Factor Represents 1 point: Obesity (BMI >25) Other Risk Factors: Yes Each Risk Factor Represents 3 Points: Age 75 years or older, History of DVT/PE Thrombosis Risk Factor Assessment Total Risk Factor Score: 7 Thrombosis Risk Factor Assessment Level: High Risk Assessment and Plan (1) Pulmonary embolism Narrative/Plan: Patient's computed tomography scan showed pulmonary embolus we'll start her on heparin per protocol pharmacy consult pulmonary PT/INR/Coumadin, heparin 1 provided oxygen, control his pain and shortness of breath actually improved. Status: Acute (2) CAD (coronary artery disease) Narrative/Plan: This condition stable we'll continue home medication Status: Acute (3) HTN (hypertension) Narrative/Plan: Stable, blood pressure goal is less than 150 Status: Acute (4) Lymphoma Narrative/Plan: Treatment as per hematology had several round of chemo will consult hemoncology Status: Acute
[2017-01-08] MEDS: DOCUSATE 100 MG CAP PO SCH ×2 (09:08→20:50)
[2017-01-08] MEDS: METOPROLOL TARTRATE 50 MG TAB PO SCH (09:08)
[2017-01-08] MEDS: glipiZIDE 10 MG TAB PO SCH (09:08)
[2017-01-08] MEDS: LISINOPRIL 20 MG TAB PO SCH (09:08)
[2017-01-08] MEDS: ASPIRIN 325 MG TAB PO SCH (09:08)
[2017-01-08] MEDS: HEPARIN SODIUM,PORCINE/D5W PMX 25,000 UNIT in DEXTROSE/WATER 1 500ML.BAG IV SCH (11:34)
[2017-01-08 12:08] LABS: Glucose,Whole Blood 128 mg/dL (75-99)
[2017-01-08] MEDS: RIVAROXABAN 15 MG TAB PO SCH ×2 (13:18→18:16)
--- NOTE | 2017-01-08 14:31 | P.PN ---
Progress Note - Text I saw and examined the patient today, had prolonged discussion with the patient and family regarding options for anticoagulation. Discussed benefits, costs, risks. Patient agrees on Xarelto. Discussed with case assistant who was able to provide the patient with a month's supply for free patient will require at least 3 months off treatment with anticoagulation and then reevaluation with hematology oncology service for stopping the medication. Patient is currently stable, oxygen saturation above 92% on room air denies any chest pain or trouble breathing. Heparin drip will be stopped and Xarelto will be started immediately.
[2017-01-08 17:42] LABS: Glucose,Whole Blood 118 mg/dL (75-99)
[2017-01-08 20:25] LABS: Glucose,Whole Blood 191 mg/dL (75-99)
[2017-01-08] MEDS: ATORVASTATIN 40 MG TAB PO SCH (20:50)
[2017-01-09] MEDS: SODIUM CHLORIDE 0.9% 1,000 ML IV SCH ×2 (01:54→09:12)
[2017-01-09 06:27] LABS: Anisocytosis Slight; Basophils % (A) 0 %; CH 29.9; CHCM 32.4; Eosinophils % (A) 0 %; HCT 28.9 % (39.0-53.0); HDW 2.86; HGB 9.1 gm/dL (13.0-17.5); Luc # (Auto) 0.16; Luc % (Auto) 3; Lymphocytes # (A) 0.5 k/uL (1.0-4.8); Lymphocytes % (A) 11 %; MCH 29.4 pg (25.0-35.0); MCHC 31.6 g/dL (31.0-37.0); MCV 93.1 fL (80.0-100.0); Mean Platelet Volume 8.4; Monocytes # (A) 0.3 k/uL (0-1.0); Monocytes % (A) 7 %; Neutrophils % (A) 79 %; RBC 3.11 m/uL (4.30-5.90); RDW 17.3 % (11.5-15.5); WBC (Perox) 5.11
[2017-01-09 07:39] LABS: Glucose,Whole Blood 177 mg/dL (75-99)
[2017-01-09] MEDS: RIVAROXABAN 15 MG TAB PO SCH (08:03)
[2017-01-09] MEDS: METOPROLOL TARTRATE 50 MG TAB PO SCH (08:03)
[2017-01-09] MEDS: DOCUSATE 100 MG CAP PO SCH (08:03)
[2017-01-09] MEDS: ASPIRIN 325 MG TAB PO SCH (08:03)
[2017-01-09] MEDS: LISINOPRIL 20 MG TAB PO SCH (08:03)
[2017-01-09] MEDS: glipiZIDE 10 MG TAB PO SCH (08:04)
[2017-01-09 08:14] VITALS: BP 134/64; PULSE 87; RESP 18; TEMP 98.2
--- NOTE | 2017-01-09 11:33 | P.CONS ---
History of Present Illness - Reason for Consult Consult date: 01/08/17 New pulmonary embolus. Non-Hodgkin's lymphoma on chemo - History of Present Illness The patient is an 81-year-old gentleman, well-known to our service. He was initially seen in consult, in late 09/29, when he was transferred from [facility] because of progressive shortness of breath as well as coughing up blood. Onset of symptoms had been about 2 weeks prior. He was found to have fairly extensive mediastinal lymphadenopathy as well as abdominal lymph adenopathy. He had a transbronchial biopsy that was nondiagnostic. He was subsequently referred for mediastinoscopy with biopsy and had that in 10/30. The final pathology was resulted as diffuse large B-cell non-Hodgkin's lymphoma. The patient was started on chemotherapy with R-CHOP. He is status post 3 cycles with the most recent given about [address] scans were done on 01/06/17. Radiology called the office with an incidental finding of lower lobe pulmonary embolus. The patient was contacted at home and asked more into the emergency room. He was therefore admitted for further management. He has been started on IV heparin. The patient himself denies any change in his respiratory status or chest pain. Review of Systems Constitutional: Reports fatigue Eyes: denies blurred vision, denies pain Ears: deny: decreased hearing, ear discharge, earache, tinnitus Ears, nose, mouth and throat: Denies headache, Denies sore throat Cardiovascular: Reports decreased exercise tolerance Respiratory: Reports dyspnea (Improved since starting chemotherapy), Reports hemoptysis (At initial presentation. Since resolved) Gastrointestinal: Denies abdominal pain, Denies diarrhea, Denies nausea, Denies vomiting Musculoskeletal: Denies myalgias Integumentary: Denies pruritus, Denies rash Neurological: Denies numbness, Denies weakness Psychiatric: Denies anxiety, Denies depression Endocrine: Denies fatigue, Denies weight change Hematologic/Lymphatic: Reports as per HPI, Reports lymphadenopathy Past Medical History Past Medical History: Coronary Artery Disease (CAD), Cancer, Diabetes Mellitus, Hyperlipidemia, Hypertension Additional Past Medical History / Comment(s): "leaky valve", shingles rt side 2012-has residual pain from it, SOB w/exertion since recent procedure, new dx. lymphoma with 3rd cycle of chemo completed on 12/27/16 History of Any Multi-Drug Resistant Organisms: None Reported Past Surgical History: Coronary Bypass/CABG, Heart Catheterization, Orthopedic Surgery, Prostate Surgery, Tonsillectomy Additional Past Surgical History / Comment(s): triple bypass 2003, hemorrhoid sx 1976, right carpal tunnel release sx, mediastinoscopy w/biopsy 10-26-16 Past Anesthesia/Blood Transfusion Reactions: No Reported Reaction Past Psychological History: No Psychological Hx Reported Additional Psychological History / Comment(s): PT LIVES WITH HIS MIRTA IN A SINGLE LEVEL HOME THAT HAS 2 STEPS TO ENTER. NO PETS. PT IS INDEPENDANT,NO OUTSIDE SERVICES RECEIVED, NO MEDICAL EQUIMENT. PT SERVED IN THE [employer]. RETIRED FROM [employer] -WORKED THERE FOR 39 YEARS. Smoking Status: Former smoker Past Alcohol Use History: Rare Additional Past Alcohol Use History / Comment(s): STARTED SMOKING AT AGE 16 2 quit approx 1977 Past Drug Use History: None Reported - Past Family History Father Family Medical History: Myocardial Infarction ([place]) Mother Family Medical History: Congestive Heart Failure (CHF) Medications and Allergies Home Medications Medication Instructions Recorded Confirmed Type Aspirin 81 mg PO DAILY 10/06/16 01/07/17 History Atorvastatin [Lipitor] 40 mg PO HS 10/06/16 01/07/17 History Docusate Sodium [Stool Softener] 100 mg PO BID 10/06/16 01/07/17 History Enalapril [Vasotec] 10 mg PO DAILY 10/06/16 01/07/17 History Metoprolol Tartrate [Lopressor] 50 mg PO DAILY 10/06/16 01/07/17 History glyBURIDE [Diabeta] 5 mg PO BID 10/06/16 01/07/17 History Allergies Allergy/AdvReac Type Severity Reaction Status Date / Time No Known Allergies Allergy Verified 01/07/17 17:19 Physical Exam Vitals: Vital Signs Temp Pulse Resp BP Pulse Ox 01/09/17 07:00 98.2 F 87 18 134/64 97 01/08/17 22:18 96.6 F L 104 H 16 180/77 98 01/08/17 15:00 97.9 F 78 18 127/70 98 Intake and Output 01/08/17 01/09/17 01/09/17 22:59 06:59 14:59 Intake Total 590 1390 Balance 590 1390 Intake: Intake, IV Titration 800 Amount Sodium Chloride 0.9% 1, 800 000 ml @ 100 mls/hr IV . Q10H [facility] Rx#:[id number] Oral 590 590 Other: Voiding Method Toilet Toilet # Voids 2 2 - Constitutional General appearance: no acute distress - EENT Eyes: EOMI, PERRLA ENT: hearing grossly normal, normal oropharynx - Neck Neck: no lymphadenopathy - Respiratory Respiratory: bilateral: CTA - Cardiovascular Rhythm: regular Heart sounds: normal: S1, S2 - Gastrointestinal General gastrointestinal: normal bowel sounds, soft - Integumentary Integumentary: normal - Neurologic Neurologic: CNII-XII intact - Musculoskeletal Musculoskeletal: strength equal bilaterally - Psychiatric Psychiatric: A&O x's 3, intact judgment & insight Results CBC & Chem 7: 01/09/17 06:10 01/07/17 17:51 Labs: Abnormal Lab Results - Last 24 Hours (Table) 01/08/17 01/08/17 01/08/17 Range/Units 12:06 17:37 20:22 RBC (4.30-5.90) m/uL Hgb (13.0-17.5) gm/dL Hct (39.0-53.0) % RDW (11.5-15.5) % Plt Count (150-450) k/uL Lymphocytes # (1.0-4.8) k/uL POC Glucose (mg/dL) 128 H 118 H 191 H (75-99) mg/dL 01/09/17 01/09/17 Range/Units 06:10 07:28 RBC 3.11 L (4.30-5.90) m/uL Hgb 9.1 L (13.0-17.5) gm/dL Hct 28.9 L (39.0-53.0) % RDW 17.3 H (11.5-15.5) % Plt Count 108 L (150-450) k/uL Lymphocytes # 0.5 L (1.0-4.8) k/uL POC Glucose (mg/dL) 177 H (75-99) mg/dL CT scan - chest: report reviewed CT scan - pelvis: report reviewed US - abdomen: report reviewed Assessment and Plan (1) Pulmonary embolism Narrative/Plan: This is a new finding. There is no prior history of DVT or PE. This was found incidentally on CT scans that were done for restaging. The patient was therefore admitted for further management. He himself denied any respiratory symptoms. He continues to feel reasonably well at this time. The patient was started on treatment with IV heparin. He will need to be transitioned over to an outpatient regimen. A prescription for Xarelto was written, and given to case management to check for coverage. If covered, the oral direct factor inhibitors would be appropriate options for him. If not, then we would likely need to utilize Coumadin, and transition him over to the same. The patient's PE would be considered provoked, by his underlying malignancy, as well as chemotherapy. At this time, I would recommend at least 6-12 months of anticoagulation. At that time, potentially at the correlation can be discontinued if the patient appears to have achieved complete remission from his malignancy, is off treatment, and is felt to be in a low risk category based on repeat imaging and d-dimer testing. Status: Acute (2) Lymphoma Narrative/Plan: The patient has been tolerating his regimen quite well, and has noted some dramatic improvement since starting. His recent CT scans that were done for restaging, showed dramatic improvement , with only minor residual mediastinal adenopathy remaining at this time. Results were discussed with him. He will continue on his treatment as scheduled as an outpatient Status: Acute (3) Anemia due to chemotherapy Narrative/Plan: The patient's anemia, with hemoglobin at 9.1, is due to chemotherapy. All other than his hemoptysis at presentation, which has resolved, he has no evidence of any bleeding. Therefore this is no contraindication to him being on anticoagulation. Currently hemoglobin is in a safe range, with no supplementation required Status: Acute
--- NOTE | 2017-01-09 19:32 | P.DS ---
Providers Date of admission: 01/07/17 18:20 Expected date of discharge: 01/09/17 Attending physician: Joelle Polanco DO Consults: Dr Bell, oncology Primary care physician: Maddi Bird - Discharge Diagnosis(es) (1) Lymphoma Status: Acute (2) Pulmonary embolism Status: Acute Hospital Course: 81-year-old male with past medical history of lymphoma. He is currently receiving chemotherapy, and had a scheduled CAT scan of the chest to follow-up on his lymphoma status when incidentally found acute pulmonary embolism of the left lower lung. Patient was sent to the hospital for further management otherwise he was completely asymptomatic reporting no chest pain or shortness of breath patient was not hypoxic. Patient initially was treated with heparin and supplemental oxygen, After further discussions regarding risks and benefits and options for treatment patient patient agreed on starting Xarelto which was initiated and patient was monitored for 24 hours for any signs of bleeding which she had none. Patient seen today reports no chest pain or trouble breathing denies any evidence of GI bleeding and was eager to go home. Constitutional: vital signs stable, Not in acute distress, pleasant, conversant Lungs: Clear to auscultation bilaterally, clear to percussion, normal respiratory effort no use of accessory muscles Cardiovascular: Regular rate and rhythm, no murmurs, no gallops, no rubs, no peripheral edema Extremities: No digital cyanosis or clubbing, peripheral pulses palpable and equal over bilateral radial arteries and dorsalis pedis artery, no calf muscle tenderness Psych: Alert, oriented to place, person and time Patient was counseled to continue on Xarelto for at least 3 months and not to discontinue the medication without his physician's permission. Patient was also instructed to monitor for any evidence of GI bleeding Patient was counseled regarding risk of falling with sudden movements and quick standing which should be avoided to decrease risk of postural dizziness and falls More than 35 minutes were spent discharging this patient, and more than 50% of the time was spent in counseling the patient and family and in coordinating care. Pertinent Studies: Computed tomography scan of the chest with incidental finding left lower segment pulmonary embolism, otherwise suggested dramatic improvement in his lymphadenopathy Patient Condition at Discharge: Fair Plan - Discharge Summary New Discharge Prescriptions: New Nitroglycerin Sl Tabs [Nitrostat] 0.4 mg SUBLINGUAL Q5M PRN tab PRN Reason: Chest Pain Rivaroxaban [Xarelto Starter Pack] 1 each PO DIRECTED #120 tab Continue Docusate Sodium [Stool Softener] 100 mg PO BID Aspirin 81 mg PO DAILY glyBURIDE [Diabeta] 5 mg PO BID Metoprolol Tartrate [Lopressor] 50 mg PO DAILY Enalapril [Vasotec] 10 mg PO DAILY Atorvastatin [Lipitor] 40 mg PO HS Discharge Medication List Aspirin 81 mg PO DAILY 10/06/16 [History] Atorvastatin [Lipitor] 40 mg PO HS 10/06/16 [History] Docusate Sodium [Stool Softener] 100 mg PO BID 10/06/16 [History] Enalapril [Vasotec] 10 mg PO DAILY 10/06/16 [History] Metoprolol Tartrate [Lopressor] 50 mg PO DAILY 10/06/16 [History] glyBURIDE [Diabeta] 5 mg PO BID 10/06/16 [History] Nitroglycerin Sl Tabs [Nitrostat] 0.4 mg SUBLINGUAL Q5M PRN tab 01/08/17 [Rx] Rivaroxaban [Xarelto Starter Pack] 1 each PO DIRECTED #120 tab 01/08/17 [Rx] Follow up Appointment(s)/Referral(s): Timbo Bell MD [STAFF PHYSICIAN] - 1 Week (Patient to call Dr. Bell's office Tuesday to schedule follow up appointment. The office is closed at time of discharge.) Maddi Bird MD [Primary Care Provider] - 1-2 days (Patient to call Dr. Bird's office Tuesday to schedule follow up appointment. The office is closed at time of discharge.) Patient Instructions/Handouts: Rivaroxaban (By mouth), Pulmonary Embolism (DC) Activity/Diet/Wound Care/Special Instructions: activity as tolerated, diet diabetic diet, monitor your bowel movement for evidence of GI bleeding call your doctor with any concerns Care Plan Goals (MU): you will need xarelto for at least 3 months, do not dtop the medication without your doctors permission Discharge Disposition: HOME SELF-CARE
== END 2017-01-09 11:40 | disposition home or self-care (01) | DRG 176 ==
LOC: EC 16:10 → 5ONC 18:20
PROVIDERS: ADMIT Internal Medicine; ATTEND Internal Medicine
DX: I26.99 Other pulmonary embolism without acute cor pulmonale (principal); C83.30 Diffuse large B-cell lymphoma, unspecified site; D64.81 Anemia due to antineoplastic chemotherapy; E11.9 Type 2 diabetes mellitus without complications; E78.5 Hyperlipidemia, unspecified; T45.1X5A Adverse effect of antineoplastic and immunosuppressive drugs, initial encounter; I10 Essential (primary) hypertension; I25.10 Atherosclerotic heart disease of native coronary artery without angina pectoris; Z79.82 Long term (current) use of aspirin; Z79.84 Long term (current) use of oral hypoglycemic drugs; Z79.899 Other long term (current) drug therapy; Z86.19 Personal history of other infectious and parasitic diseases; Z95.1 Presence of aortocoronary bypass graft; Z92.21 Personal history of antineoplastic chemotherapy; Z87.891 Personal history of nicotine dependence
CPT/HCPCS: 36415; 71260; 74177; 80053; 80061; 82550; 82553; 83735; 84100; 84484; 85025; 85610; 85730; 93005; 96361; 96365; 96376; 99285

== ENCOUNTER → 2017-01-07 | Outpatient (CLI) | payer MEDICARE ==
[2017-01-07 14:18] LABS: Blood Urea Nitrogen 10 mg/dL (9-20); Non-African American GFR(MDRD) >60 (>60 ml/min/1.73 sqM)
--- NOTE | 2017-01-07 15:17 | CT ---
EXAMINATION TYPE: CT ChestAbdPelvis w con DATE OF EXAM: 01/07/2017 COMPARISON: 10/06/2016 CT chest HISTORY: Lymphoma CT DLP: 1007.80 mGycm CONTRAST: CT scan of the chest, abdomen and pelvis is performed with Oral Contrast and with IV Contrast, patien t injected with 100 ml mL of Omnipaque 300. CT Chest: LUNGS: Resolution of previously noted pulmonary nodules with small density noted within the left uppe r lobe measuring 5 mm versus distinct nodule measuring 1 cm previously. No new nodules are identified . MEDIASTINUM: Small filling defect within the descending left lower lobe pulmonary artery compatible with a small pulmonary embolism. Thoracic aorta is of normal caliber. The heart is not enlarged. The re is dramatic improvement in mediastinal adenopathy. Persistent soft tissue is noted within the righ t paratracheal region measuring 2.4 x 1.4 cm. Subcarinal adenopathy persists at 1.4 cm. There is as a go esophageal adenopathy also markedly decreased. Near-complete resolution of high right paratracheal and prevascular adenopathy. HILAR STRUCTURES: No evidence for mass. No hilar adenopathy is appreciated. OTHER: No significant abnormality. CONTRAST CT ABDOMEN AND PELVIS FINDINGS: LIVER/GB: No calcified gallstones. No space occupying hepatic lesion. Biliary tree is of normal ca liber. PANCREAS: No inflammation. No distinct mass. SPLEEN: No splenic enlargement. No lesion seen. ADRENALS: No nodule. No thickening. KIDNEYS/BLADDER: No hydronephrosis. No nephrolithiasis. No disctinct renal mass. BOWEL: Normal appendix. Normal bowel caliber. No inflammation. GENITAL ORGANS: No gross abnormality. LYMPH NODES: No greater than 1cm abdominal or pelvic lymph nodes are appreciated. AORTA: No significant abnormality. OSSEOUS STRUCTURES: Severe degenerative changes lumbar spine. OTHER: Fat-containing left inguinal hernia. IMPRESSION: 1. Small left lower lobe pulmonary embolism. 2. Dramatic improvement in mediastinal adenopathy. No new areas of adenopathy appreciated. A Red message has been communicated to Timbo Bell MD via the [employer] Critical Result system on 01/07/2017 3:15 PM, Message ID [id number].
== END | disposition home or self-care (01) ==
LOC: RADPROMAIN 12:43
PROVIDERS: ATTEND Internal Medicine Hematology & Oncology
DX: C83.88 Other non-follicular lymphoma, lymph nodes of multiple sites (principal); I26.99 Other pulmonary embolism without acute cor pulmonale; R59.0 Localized enlarged lymph nodes
CPT/HCPCS: 82565; 84520; 71260; 74177; 36415; Q9967

== ENCOUNTER → 2017-06-01 | Outpatient (CLI) | payer MEDICARE ==
[2017-06-01 10:31] LABS: Blood Urea Nitrogen 12 mg/dL (9-20)
--- NOTE | 2017-06-01 16:39 | CT ---
EXAMINATION TYPE: CT ChestAbdPelvis w con DATE OF EXAM: 06/01/2017 INDICATION: Lymphoma COMPARISON: 03/09/2017 CT DLP: 1104.1 mGycm CONTRAST: Performed with Oral Contrast and with IV Contrast, patient injected with 100 mL of Omnipaque 300. TECHNIQUE: Axial images at 5 mm thick sections. Reconstructed images in the coronal plane. Delayed images through the kidneys. FINDINGS: CT CHEST: Portion of the thyroid visualized is normal. Some scarring at the lung apices is likely present. No enlarged mediastinal or hilar adenopathy is evident. There is some mild diffuse soft tissue signal through the mediastinum. Discrete lymph nodes are not identified. The soft tissues type density appe ars stable from the comparison study. The ascending aorta diameter at the level of the main pulmonary artery is 3.4 cm. The main pulmonary artery diameter at the bifurcation is 2.5 cm. Note is made of coronary artery calcification. CT ABDOMEN: Liver: Normal Spleen: Normal Pancreas: Pancreas is somewhat atrophic. Adrenal glands: The adrenal glands are normal. Gallbladder: Normal Kidneys: No masses are evident. No hydronephrosis is present. No cysts are present. Delayed images were obtained through the kidneys, which remain unremarkable. Aorta: Vascular calcification is within the aorta. Inferior vena cava: Normal. CT PELVIS: Left fat-containing inguinal hernia is present. Loops of bowel within the abdomen and pelvis are normal. There are loops of bowel which are incom pletely distended or lack oral contrast limiting their evaluation. Appendix: Normal as visualized. Urinary bladder: Normal. Genitourinary structures: Prostate is prominent. Osseous structures: No suspicious lytic or sclerotic lesions. Degenerative disc changes are within th e lumbar spine. IMPRESSIONS: 1. No suspicious changes for recurrent or metastatic lymphoma. 2. Mediastinal soft tissue appears stable. 3. No acute changes.
== END | disposition home or self-care (01) ==
LOC: RADPROMAIN 09:48
PROVIDERS: ATTEND Internal Medicine Hematology & Oncology
DX: C85.88 Other specified types of non-Hodgkin lymphoma, lymph nodes of multiple sites (principal)
CPT/HCPCS: 82565; 84520; 71260; 74177; Q9967; J1642

== ENCOUNTER 2017-07-29 07:19 | Day surgery (SDC) | payer MEDICARE ==
[2017-07-25 15:34] VITALS: BMI 25.0
[~2017-07-29 07:19] MED LIST changes: +DEXAMETHASONE SOD PHOSPHATE 10 MG/ML 1 ML VIAL IV ONE; +HEPARIN SODIUM,PORCINE 5,000 UNIT/ML 1 ML VIAL SQ ONE; -HYDROmorphone 1 MG/ML 1 ML SYRINGE IVP PRN; +LACTATED RINGERS 1,000 ML IV ONE; -LACTATED RINGERS 1,000 ML IV SCH; +LIDOCAINE 1% 20 ML VIAL (10MG/ML) FOR IV START INTRADERMA PRN; +ONDANSETRON 4 MG/2 ML VIAL IVP ONE; +SCOPOLAMINE 1.5MG/72HR PATCH TRANSDERM ONE; -ceFAZolin 2 GM in SODIUM CHLORIDE 0.9% 100 ML IVPB ONE; +ceFAZolin IN SWFI 2 GM/20 ML SYRINGE IVP ONE
--- NOTE | 2017-07-29 07:19 | P.GSHP ---
History of Present Illness H&P Date: 07/29/17 CHIEF COMPLAINT: Inguinal hernia, left HISTORY OF PRESENT ILLNESS: The patient is a 82-year-old male who presents with a history of swelling and pain along the left groin. He's noted increased swelling including pain of the area. Now he presents for repair of his inguinal hernia. PAST MEDICAL HISTORY: Please see list. PAST SURGICAL HISTORY: Please see list. MEDICATIONS: Please see list. ALLERGIES: Please see list. SOCIAL HISTORY: No illicit drug use FAMILY HISTORY: No reports of Crohn disease or ulcerative colitis. REVIEW OF ORGAN SYSTEMS: CONSTITUTIONAL: No reports of fevers or chills. No reports of weight loss despite prior attempts. GI: Denies any blood in stools or constipation. PHYSICAL EXAM: VITAL SIGNS: Stable GENERAL: Well-developed pleasant male in no acute distress. HEENT: No scleral icterus. Extraocular movements grossly intact. Moist buccal mucosa. NECK: Supple without lymphadenopathy. CHEST: Unlabored respirations. Equal bilateral excursions. CARDIOVASCULAR: Regular rate and rhythm. Distal 2+ pulses. ABDOMEN: Soft, nondistended. No peritoneal signs. Palpable defect of the groin. MUSCULOSKELETAL: No clubbing, cyanosis, or edema. ASSESSMENT: 1. Inguinal hernia, left and symptomatic. 2. Lymphoma. PLAN: 1. Recommend proceeding with a robotic inguinal repair with mesh with possible bilateral approach. 2. Benefits and risks of surgical intervention was discussed including possibility of open technique. 3. May need overnight observation pending anticipated postoperative pain. 4. DVT prophylaxis. 5. Antibiotic prophylaxis. Past Medical History Past Medical History: Coronary Artery Disease (CAD), Cancer, Diabetes Mellitus, Hyperlipidemia, Hypertension, Osteoarthritis (OA) Additional Past Medical History / Comment(s): "leaky valve", shingles rt side 2012-has residual pain from it, SOB w/exertion since recent procedure, new dx. lymphoma with last chemo tx. 2016. States has a blood clot in his lung. History of Any Multi-Drug Resistant Organisms: None Reported Past Surgical History: Coronary Bypass/CABG, Heart Catheterization, Orthopedic Surgery, Prostate Surgery, Tonsillectomy Additional Past Surgical History / Comment(s): triple bypass 2003, hemorrhoid sx 1976, right carpal tunnel release sx, mediastinoscopy w/biopsy 10-26-16 Past Anesthesia/Blood Transfusion Reactions: No Reported Reaction Smoking Status: Former smoker - Past Family History Father Family Medical History: Myocardial Infarction ([place]) Mother Family Medical History: Congestive Heart Failure (CHF) Medications and Allergies Home Medications Medication Instructions Recorded Confirmed Type Atorvastatin [Lipitor] 40 mg PO HS 10/06/16 07/25/17 History Docusate Sodium [Stool Softener] 100 mg PO BID 10/06/16 07/25/17 History Metoprolol Tartrate [Lopressor] 50 mg PO DAILY 10/06/16 07/25/17 History glyBURIDE [Diabeta] 5 mg PO BID 10/06/16 07/25/17 History Apixaban [Eliquis] 10 mg PO DAILY 07/25/17 07/25/17 History Multivitamin [Men's Multi-Vitamin] 1 each PO DAILY 07/25/17 07/25/17 History [place]-3/Dha/Epa/Fish Oil [Fish Oil 1 each PO DAILY 07/25/17 07/25/17 History 500 mg Softgel] Allergies Allergy/AdvReac Type Severity Reaction Status Date / Time No Known Allergies Allergy Verified 07/25/17 15:11
[2017-07-29] MEDS ORDERED: BUPIVACAINE (PF) 0.25% 30 ML VIAL SQ ONE (07:31)
[2017-07-29 07:50] LABS: Glucose,Whole Blood 139 mg/dL (75-99)
[2017-07-29] MEDS ORDERED: ePHEDrine SULFATE/0.9% NACL/PF 50 MG/5 ML SYRINGE IV ONE (09:09)
[2017-07-29] MEDS ORDERED: SUCCINYLCHOLINE CHLORIDE 100 MG/5 ML SYR IV ONE (09:09)
[2017-07-29] MEDS ORDERED: LIDOCAINE 1% INJ 10MG/ML (20 ML MDV) ONE (09:09)
[2017-07-29] MEDS ORDERED: NEOSTIGMINE 1 MG/ML 10 ML VIAL ONE (09:09)
[2017-07-29] MEDS ORDERED: GLYCOPYRROLATE 0.2 MG/ML 2 ML VIAL ONE (09:09)
[2017-07-29] MEDS ORDERED: fentaNYL (PF) 50 MCG/ML 2 ML AMP ONE (09:09)
[2017-07-29] MEDS ORDERED: PROPOFOL 10 MG/ML 20 ML VIAL IV ONE (09:09)
[2017-07-29] MEDS ORDERED: ROCURONIUM BROMIDE 10 MG/ML 10 ML VIAL IV ONE (09:09)
[2017-07-29 10:50] VITALS: TEMP 98.1
[2017-07-29] MEDS ORDERED: TAMSULOSIN 0.4 MG CAP.ER.24H PO STA (10:54)
[2017-07-29] MEDS ORDERED: fentaNYL (PF) 50 MCG/ML 2 ML AMP IVP ONE (11:25)
[2017-07-29 12:28] VITALS: BP 148/70
[2017-07-29 12:45] VITALS: PULSE 74; RESP 16
--- NOTE | 2017-07-29 17:46 | P.PCN ---
Date of Procedure: 07/29/17 Preoperative Diagnosis: Left inguinal hernia Postoperative Diagnosis: Incarcerated left inguinal lipoma over 7 cm, left inguinal hernia Procedure(s) Performed: Robotic-assisted left inguinal hernia repair, prophylaxis and excision of incarcerated left inguinal lipoma over 7 cm Anesthesia: GETA, local Surgeon: Renetta Clayton Estimated Blood Loss (ml): 5 Pathology: other (Incarcerated left inguinal lipoma) Condition: stable Disposition: floor
--- NOTE | 2017-08-03 16:45 | P.OP ---
Date of Procedure: 07/29/17 Description of Procedure: SURGEON: REBEKAH CLAYTON MD NIGHTCLUB MANAGER: 1. LIZBET BROWN PREOPERATIVE DIAGNOSES: 1. Left inguinal hernia. 2. History of lymphoma. 3. History of pulmonary embolism. 4. Chronic anticoagulants use. 5. Diabetes type 2, [id number]. 6. Hypertensive heart disease or cardiomyopathy. 7. Hyperlipidemia. 8. Coronary artery disease 9. Mitral valve regurgitation. POSTOPERATIVE DIAGNOSES: 1. Left inguinal hernia. 2. History of lymphoma. 3. History of pulmonary embolism. 4. Chronic anticoagulants use. 5. Diabetes type 2, [id number]. 6. Hypertensive heart disease or cardiomyopathy. 7. Hyperlipidemia. 8. Coronary artery disease 9. Mitral valve regurgitation. 10. Incarcerated left inguinal lipoma, over 7 cm OPERATION: 1. Robotic-assisted da Taylor Xi laparoscopic excision of incarcerated left inguinal lipoma, over 7 cm 2. Robotic-assisted da Taylor Xi laparoscopic left inguinal hernia repair without mesh. ANESTHESIA: General with local anesthetic ESTIMATED BLOOD LOSS: 5 mL. SPECIMENS REMOVED: Incarcerated left inguinal lipoma over 7 cm. COMPLICATIONS: None. INDICATIONS: The patient is an 82-year-old gentleman who presents with history of left groin swelling. Now presents for definitive surgical intervention. Laparoscopic versus open and robotic approaches were discussed. Benefits and risks including bleeding, infection, injury to the vas deferens as well as sterility and chronic groin pain were reviewed. Placement of mesh was also described. Informed consent was obtained. DESCRIPTION: In the preoperative area, the patient was marked with indelible marker along the inguinal hernia. The patient was brought to the operating room and initially laid in supine position. The abdomen had been prepped and draped in standard sterile fashion. Ioban draping was also placed. Prior to incision, a timeout protocol was confirmed with surgical team regarding patient's name including procedures to be performed and location along the left groin. Initial positioning for the robotic assisted ports were selected whereby 20 cm superior to the target anatomy, 0 degree 5 mm laparoscopic trocar entry was performed at the left upper quadrant. The abdomen was insufflated to 15 mmHg which he had tolerated well. Diagnostic laparoscopy demonstrated less than 8 mm indirect left inguinal hernia. No significant hernia along the right side. Next, along the epigastrium, 12 mm robot trocar was placed. An 8-mm robotic trocar was placed under direct visualization at the right upper quadrant. The 5 mm port was exchanged for a 8 mm trocar. All trocars were positioned between 8 to 10-cm apart from each other. The [employer] XI robot was primed, draped, prepared for docking along the left side of the patient. I then went to the [employer] Xi console. The assistant loan processor was at bedside for exchange of the robot arms and equipment. Attention was brought to the left groin where the 8 mm defect was opened for exploration. Immediately, a large fatty lipoma was found incarcerated deep to the external ring and over 7 cm in size. Moderate dissection was performed to excise the lipoma in total. Actual size of the incarcerated left inguinal lipoma was over 7 x 18 cm in size. The lipoma was delivered from the left groin. Once completely reduced into the abdominal cavity, the size of the hernia defect was 2 cm with intraoperative films obtained. Using 2-0 V-LOC, the peritoneal defect of the left inguinal hernia site was closed in a running fashion. The robot was undocked from the patient's bedside. I then rescrubbed into the case. The peritoneal defect corresponding to the 12 mm port was inspected. The fascial defect was reapproximated using 0-Vicryl and a Yovani Hobbs. Insufflation was released from the abdominal cavity and all instruments were removed from the abdominal cavity. The rest of incisions were reapproximated using 4-0 Monocryl in a running subcuticular fashion. Local anesthetic was placed along the incision including for a right groin block. Incisions were cleansed using dilute hydrogen peroxide. Dermabond was applied to the skin. At the end of the procedure, the needle, sponge and instrument counts had been verified correct by the sonar technician. The patient had tolerated the procedure well and was taken to the postanesthesia care unit in stable condition. FINDINGS: 1. Incarcerated left inguinal lipoma over 7 cm x 18 cm Plan - Discharge Summary Discharge Rx Participant: Yes New Discharge Prescriptions: New HYDROcodone/APAP 5-325MG [Alpha 5-325] 1 tab PO Q6HR PRN #10 tab PRN Reason: Pain Tamsulosin [Flomax] 0.4 mg PO DAILY #7 cap Continue Metoprolol Tartrate [Lopressor] 50 mg PO DAILY Atorvastatin [Lipitor] 40 mg PO HS [place]-3/Dha/Epa/Fish Oil [Fish Oil 500 mg Softgel] 1 each PO DAILY Apixaban [Eliquis] 10 mg PO DAILY No Action Docusate Sodium [Stool Softener] 100 mg PO BID glyBURIDE [Diabeta] 5 mg PO BID Multivitamin [Men's Multi-Vitamin] 1 each PO DAILY Discharge Medication List Atorvastatin [Lipitor] 40 mg PO HS 10/06/16 [History] Docusate Sodium [Stool Softener] 100 mg PO BID 10/06/16 [History] Metoprolol Tartrate [Lopressor] 50 mg PO DAILY 10/06/16 [History] glyBURIDE [Diabeta] 5 mg PO BID 10/06/16 [History] Apixaban [Eliquis] 10 mg PO DAILY 07/25/17 [History] Multivitamin [Men's Multi-Vitamin] 1 each PO DAILY 07/25/17 [History] [place]-3/Dha/Epa/Fish Oil [Fish Oil 500 mg Softgel] 1 each PO DAILY 07/25/17 [ History] HYDROcodone/APAP 5-325MG [Alpha 5-325] 1 tab PO Q6HR PRN #10 tab 07/29/17 [Rx] Tamsulosin [Flomax] 0.4 mg PO DAILY #7 cap 07/29/17 [Rx] Follow up Appointment(s)/Referral(s): Rebekah Clayton MD [STAFF PHYSICIAN] - 08/02/17 11:20 am Patient Instructions/Handouts: *Surgery [facility] - (Anesthesia) Discharge Instructions Outpatient Surgery, Laparoscopic Herniorrhaphy (DC) Activity/Diet/Wound Care/Special Instructions: Start Eliquis August 01. No lifting over 4 pounds in 4 weeks. May shower. NO bath tube soaks. Take Flomax for 5 days. Discharge Disposition: HOME SELF-CARE
== END 2017-07-29 13:17 | disposition home or self-care (01) ==
LOC: OR 07:19
PROVIDERS: ATTEND Surgery Plastic and Reconstructive Surgery
DX: K40.30 Unilateral inguinal hernia, with obstruction, without gangrene, not specified as recurrent (principal); D17.6 Benign lipomatous neoplasm of spermatic cord; C85.90 Non-Hodgkin lymphoma, unspecified, unspecified site; I25.10 Atherosclerotic heart disease of native coronary artery without angina pectoris; E11.9 Type 2 diabetes mellitus without complications; E78.5 Hyperlipidemia, unspecified; I11.9 Hypertensive heart disease without heart failure; I42.9 Cardiomyopathy, unspecified; I34.0 Nonrheumatic mitral (valve) insufficiency; M19.90 Unspecified osteoarthritis, unspecified site; Z92.21 Personal history of antineoplastic chemotherapy; Z95.1 Presence of aortocoronary bypass graft; Z86.711 Personal history of pulmonary embolism; Z85.29 Personal history of malignant neoplasm of other respiratory and intrathoracic organs; Z79.84 Long term (current) use of oral hypoglycemic drugs; Z79.899 Other long term (current) drug therapy; Z79.01 Long term (current) use of anticoagulants; Z87.891 Personal history of nicotine dependence
CPT/HCPCS: 88304; 49650; J1644; J1100; J2710; J2405; J2001; J3010; J0330; J2704; J0690

== ENCOUNTER → 2017-08-29 | Outpatient (CLI) | payer MEDICARE ==
[2017-08-29 13:45] LABS: Blood Urea Nitrogen 15 mg/dL (9-20)
--- NOTE | 2017-08-29 15:19 | CT ---
EXAMINATION TYPE: CT ChestAbdPelvis w con DATE OF EXAM: 08/29/2017 COMPARISON: CT chest abdomen pelvis June 01, 2017 and older studies. PET/CT October 16, 2016. HISTORY: Follow up lymphoma. CT DLP: 1030.7 mGycm. Automated Exposure Control for Dose Reduction was Utilized. CONTRAST: CT scan of the thorax, abdomen and pelvis is performed with IV Contrast, patient injected with 100 mL of Isovue M300. FINDINGS: LUNGS: There is mild to moderate pleural/parenchymal biapical scarring redemonstrated. Remainder of l ungs are clear. No suspicious new nodule or mass is present. There is persistent 5 mm scarlike opacit y right lower lobe on axial image 35 at area of hypermetabolic nodule on PET/CT. No pleural effusion or pneumothorax is seen bilaterally. Tracheobronchial tree is patent. MEDIASTINUM: There is persistent irregular curvilinear soft tissue in the anterior superior mediastin um along the posterior right margin of the brachiocephalic artery at its origin extending inferiorly abutting the posterior aspect of the ascending aorta and SVC up to level of cici. This is not signi ficantly changed from most recent CT. This is significantly improved from prior PET/CT where it was l arger confluent component extending further superiorly and inferiorly to the subcarinal level. No pe ricardial effusion is seen. Severe coronary artery calcification is redemonstrated. Note is made how ever post CABG changes with mediastinal clips and sternal wires again seen. OTHER: No additional significant abnormality is seen. LIVER/GB: No significant abnormality is appreciated. PANCREAS: No significant abnormality is seen. SPLEEN: No significant abnormality is seen. ADRENALS: No significant abnormality is seen. KIDNEYS: No significant abnormality is seen. BOWEL: No significant abnormality is seen. GENITAL ORGANS: Some central zone calcifications are seen in normal size prostate gland. Adjacent rig ht pelvic phleboliths are redemonstrated. LYMPH NODES: No greater than 1cm abdominal or pelvic lymph nodes are appreciated. OSSEOUS STRUCTURES: There is moderate to severe multilevel anterior and lateral spurring in the thora columbar spine. There is prominent facet arthropathy mid to lower lumbar levels. OTHER: Moderate atherosclerotic change of aorta extending into branch vessels is redemonstrated. IMPRESSION: Overall stable findings, residual confluent soft tissue or adenopathy in the mediastinum could reflect treated lymphoma. No new mass or adenopathy identified.
== END ==
LOC: RADPROMAIN 12:39
PROVIDERS: ATTEND Internal Medicine Hematology & Oncology
DX: C85.88 Other specified types of non-Hodgkin lymphoma, lymph nodes of multiple sites (principal)
CPT/HCPCS: 82565; 84520; 71260; 74177; J1642; Q9967

== ENCOUNTER → 2017-11-28 | Outpatient (CLI) | payer MEDICARE ==
[2017-11-28 10:57] LABS: Blood Urea Nitrogen 16 mg/dL (9-20)
--- NOTE | 2017-11-28 14:21 | CT ---
EXAMINATION TYPE: CT ChestAbdPelvis w con DATE OF EXAM: 11/28/2017 COMPARISON: Prior CT chest abdomen pelvis 08/29/2017 HISTORY: Lymphoma, observe for Mets CT DLP: 1419 mGycm Automated exposure control for dose reduction was used. CONTRAST: CT scan of the chest, abdomen and pelvis is performed with Oral Contrast and with IV Contrast, patien t injected with 100 mL of Isovue 300. FINDINGS: LUNGS: Unchanged. No pleural or pericardial effusion. No evident lung mass. MEDIASTINUM: Stable appearance, ill-defined soft tissue present as on prior. AORTA: No significant abnormality is seen. OTHER: There are coronary artery calcifications present. Patient is post median sternotomy. There ar e sternal wires noted. Port-A-Cath present in the right pectoral region, tip of the catheter is via t he subclavian approach into the superior vena cava. LIVER/GB: No significant abnormality is appreciated. PANCREAS: No significant abnormality is seen. SPLEEN: No significant abnormality is seen. ADRENALS: No significant abnormality is seen. KIDNEYS: No significant abnormality is seen. REPRODUCTIVE ORGANS: No significant interval change. 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 Stomach shows wall thickening but is not distended, colonic interposition anterior to the liver noted. FREE AIR: No Free Air visible. ASCITES: None seen. RETROPERITONEAL ADENOPATHY: No retroperitoneal adenopathy is seen. LYMPH NODES: No greater than 1 cm abdominal or pelvic lymph nodes are appreciated. URINARY BLADDER: No significant abnormality is seen. PELVIC ADENOPATHY: None visualized. OSSEOUS STRUCTURES: Degenerative disc disease, facet arthropathy noted especially in the lumbar spin e with there is a spinal stenosis of the lower lumbar spine. IMPRESSION: Stable exam, recurrence is not evident ill-defined mediastinal soft tissue is stable in a ppearance.
== END | disposition home or self-care (01) ==
LOC: RADPROMAIN 10:06
PROVIDERS: ATTEND Internal Medicine Hematology & Oncology
DX: M79.89 Other specified soft tissue disorders (principal); C85.88 Other specified types of non-Hodgkin lymphoma, lymph nodes of multiple sites
CPT/HCPCS: 82565; 84520; 71260; 74177; J1642; Q9967

== ENCOUNTER → 2018-03-10 | Outpatient (CLI) | payer MEDICARE ==
[2018-03-10 14:51] LABS: Blood Urea Nitrogen 17 mg/dL (9-20)
--- NOTE | 2018-03-10 16:50 | CT ---
EXAMINATION TYPE: CT ChestAbdPelvis w con DATE OF EXAM: 03/10/2018 INDICATION: f/u lymphoma COMPARISON: 11/28/2017 CT DLP: 1461.3 mGycm CONTRAST: Performed with Oral Contrast and with IV Contrast, patient injected with 100 mL of Isovue 300. TECHNIQUE: Axial images at 5 mm thick sections. Reconstructed images in the coronal plane. Delayed images through the kidneys. FINDINGS: CT CHEST: Portion of the thyroid visualized is normal. No suspicious lung nodules or focal infiltrates are present. No enlarged mediastinal or hilar adenopathy is evident. No suspicious supraclavicular adenopathy is e vident. No suspicious axillary adenopathy is evident. The ascending aorta diameter at the level of the main pulmonary artery is 3.3 cm. The main pulmonary artery diameter at the bifurcation is 2.4 cm. Moderately extensive coronary artery calcification is noted. CT ABDOMEN: No suspicious periaortic retrocaval mesenteric or portal adenopathy is evident. No retroc [place] adenopathy is evident. Liver: Normal Spleen: Normal Pancreas: Somewhat atrophic. Adrenal glands: The adrenal glands are normal. Gallbladder: Normal Kidneys: No masses are evident. No hydronephrosis is present. No cysts are present. Delayed images were obtained through the kidneys, which remain unremarkable. Aorta: Vascular calcification is within the aorta. Inferior vena cava: Normal. CT PELVIS: No suspicious inguinal or iliac chain or obturator canal adenopathy is evident. Loops of bowel within the abdomen and pelvis are normal. There are loops of bowel which are incom pletely distended or lack oral contrast limiting their evaluation. Appendix: Normal as visualized. Urinary bladder: Normal. Genitourinary structures: Prostate is prominent. Some prostate calcification is present. Osseous structures: No suspicious lytic or sclerotic lesions. Degenerative disc changes are within th e lumbar spine. IMPRESSIONS: 1. No suspicious adenopathy to suggest recurrence or metastatic lymphoma.
== END | disposition home or self-care (01) ==
LOC: RADPROMAIN 13:56
PROVIDERS: ATTEND Internal Medicine Hematology & Oncology
DX: C85.88 Other specified types of non-Hodgkin lymphoma, lymph nodes of multiple sites (principal)
CPT/HCPCS: 82565; 84520; 71260; 74177; 36415; J1642; Q9967

== ENCOUNTER → 2018-07-06 | Outpatient (CLI) | payer MEDICARE ==
--- NOTE | 2018-07-06 12:14 | CT ---
EXAMINATION TYPE: CT ChestAbdPelvis w con DATE OF EXAM: 07/06/2018 COMPARISON: 03/10/2018 HISTORY: Follow-up lymphoma. CT DLP: 1934 mGycm CONTRAST: CT scan of the chest, abdomen and pelvis is performed with Oral Contrast and with IV Contrast, patien t injected with 100 mL of Isovue M300. CT Chest: LUNGS: The lungs are clear and free of infiltrate or atelectasis. No pulmonary nodule or mass is det ected. No pleural effusion or CT evidence of interstitial lung disease. MEDIASTINUM: Thoracic aorta is of normal caliber. The heart is not enlarged. No evidence for media stinal mass or adenopathy. HILAR STRUCTURES: No evidence for mass. No hilar adenopathy is appreciated. OTHER: No significant abnormality. CONTRAST CT ABDOMEN AND PELVIS FINDINGS: LIVER/GB: No calcified gallstones. No space occupying hepatic lesion. Biliary tree is of normal ca liber. PANCREAS: No inflammation. No distinct mass. SPLEEN: No splenic enlargement. No lesion seen. ADRENALS: No nodule. No thickening. KIDNEYS/BLADDER: No hydronephrosis. No nephrolithiasis. No disctinct renal mass. BOWEL: Normal appendix. Normal bowel caliber. No inflammation. GENITAL ORGANS: No gross abnormality. LYMPH NODES: No greater than 1cm abdominal or pelvic lymph nodes are appreciated. AORTA: No significant abnormality. OSSEOUS STRUCTURES: Severe degenerative change with multilevel central stenosis lumbar spine. OTHER: No significant additional abnormality is seen. IMPRESSION: 1. No adenopathy currently seen to suggest lymphoma.
== END | disposition home or self-care (01) ==
LOC: RADPROMAIN 09:48
PROVIDERS: ATTEND Internal Medicine Hematology & Oncology
DX: Z03.89 Encounter for observation for other suspected diseases and conditions ruled out (principal)
CPT/HCPCS: 82565; 84520; 71260; 74177; J1642; Q9967

== ENCOUNTER → 2018-11-03 | Outpatient (CLI) | payer MEDICARE ==
--- NOTE | 2018-11-03 12:59 | CT ---
EXAMINATION TYPE: CT ChestAbdPelvis w con DATE OF EXAM: 11/03/2018 COMPARISON: Prior CT 7 07/06/2018 HISTORY: lymphoma CT DLP: 2100 mGycm Automated exposure control for dose reduction was used. CONTRAST: CT scan of the chest, abdomen and pelvis is performed with Oral Contrast and with IV Contrast, patien t injected with 100 mL of Isovue 300. FINDINGS: LUNGS: The lungs are grossly clear, there is no concerning parenchymal mass or nodule identified. T here is no pleural effusion or pneumothorax seen. The tracheobronchial tree is patent. MEDIASTINUM: There is no interval change, amorphous soft tissue is again seen in the retrocaval pretr acheal mediastinum and is stable, there is no axillary or hilar adenopathy. Extensive coronary artery calcifications are again noted. No pericardial effusion is seen. AORTA: No significant abnormality is seen. OTHER: No additional significant abnormality is seen. LIVER/GB: No significant abnormality is appreciated. PANCREAS: No significant abnormality is seen. SPLEEN: No significant abnormality is seen. ADRENALS: No significant abnormality is seen. KIDNEYS: No significant abnormality is seen. REPRODUCTIVE ORGANS: Stable. BOWEL: No significant change is seen, duodenal diverticulum again noted. FREE AIR: No Free Air visible. ASCITES: None seen. RETROPERITONEAL ADENOPATHY: No retroperitoneal adenopathy is seen. LYMPH NODES: No greater than 1 cm abdominal or pelvic lymph nodes are appreciated. URINARY BLADDER: No significant abnormality is seen. PELVIC ADENOPATHY: None visualized. OSSEOUS STRUCTURES: No significant interval change is seen. IMPRESSION: No significant interval change, no evident recurrence.
== END | disposition home or self-care (01) ==
LOC: RADPROMAIN 09:57
PROVIDERS: ATTEND Internal Medicine Hematology & Oncology
DX: C85.88 Other specified types of non-Hodgkin lymphoma, lymph nodes of multiple sites (principal)
CPT/HCPCS: 82565; 84520; 71260; 74177; 36415; J1642; Q9967

== ENCOUNTER → 2019-03-19 | Outpatient (CLI) | payer MEDICARE ==
--- NOTE | 2019-03-19 13:21 | CT ---
EXAMINATION TYPE: CT ChestAbdPelvis w con DATE OF EXAM: 03/19/2019 COMPARISON: 11/03/2018 and 07/06/2018 HISTORY: 83-year-old male lymphoma, observation for metastases. TECHNIQUE: Contiguous axial scanning of the chest, abdomen, and pelvis performed with IV Contrast, pa tient injected with 100 mL of Isovue 300. Delayed images through the kidneys were obtained. Coronal/s agittal reconstructions performed. CT DLP: 1305.5 mGycm Automated exposure control for dose reduction was used. FINDINGS: CHEST: Right anterior chest wall injection port with catheter tip at the mid SVC level. Heart normal size without pericardial effusion. Median sternotomy wires are present with post-CABG cl ips. Aorta normal caliber with conventional chest branching anatomy. Stable slight soft tissue thickening along the pretracheal region with greater degree of precarinal s oft tissue thickening measuring 1.7 cm, unchanged back to 07/06/2018. No new or progressive thoracic l ymphadenopathy. Biapical pleural-parenchymal scarring. Minimal scattered emphysematous cysts. Strandy atelectasis or scarring in the lower lungs without consolidation or pleural effusion. ABDOMEN: No focal liver lesion or biliary ductal dilatation. Portal venous system is patent. 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 Gallbladder, adrenal glands, spleen, and pancreas appear within normal limits. 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 Moderate atherosclerotic calcifications and plaque within the abdominal aorta and iliac arteries with fusiform ectasia infrarenal abdominal aorta up to 2.5 cm. No dilated small bowel, free fluid, or free air. No mesenteric or retroperitoneal lymphadenopathy. Normal appendix. Mild stool burden. No pericolonic inflammatory change. Pelvis: Bladder is distended. Prostate gland measures 5.3 cm wide. No abnormal fluid collection in the pelvis or pelvic lymphadenopathy. 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 Trace grade 1 retrolisthesis at L2-L3 and L3-L4. B aastrup's disease in the lumbar spine. IMPRESSION: 1. STABLE MILD SOFT TISSUE THICKENING ALONG THE PRETRACHEAL AND PRECARINAL REGION MEASURING UP TO 1.7 CM THICK, STABLE BACK TO AT LEAST 07/06/2018, SUGGESTING SITE OF TREATED DISEASE. 2. NO EVIDENCE FOR DISEASE RECURRENCE.
== END | disposition home or self-care (01) ==
LOC: RADPROMAIN 09:27
PROVIDERS: ATTEND Internal Medicine Hematology & Oncology
DX: M79.89 Other specified soft tissue disorders (principal); C85.88 Other specified types of non-Hodgkin lymphoma, lymph nodes of multiple sites
CPT/HCPCS: 82565; 84520; 71260; 74177; Q9967 ×2

== ENCOUNTER 2019-04-13 09:02 | Inpatient (IN) | payer MEDICARE ==
--- NOTE | 2019-04-13 09:41 | ED ---
General Adult HPI - General Source: patient, RN notes reviewed Mode of arrival: ambulatory Limitations: no limitations <Jarod Tao - Last Filed: 04/13/19 11:17> <Thierry Navarro - Last Filed: 04/13/19 11:27> - General Chief complaint: Extremity Injury, Lower Stated complaint: Fell hip pain Time Seen by Provider: 04/13/19 09:28 - History of Present Illness Initial comments: 83-year-old male with a past medical history of CAD, lymphoma, diabetes, hyperlipidemia, hypertension presents to the emergency department for a chief complaint of right hip pain. Patient had a trip and fall yesterday. Patient states that he thought he was on the last step of the staircase however there was one more so he tripped and fell forward. Patient has had right hip pain since that time. He did not hit his head. He did not sustain any other injuries. Denies back pain. States his hip only hurts when he is bearing weig ht on it. Patient has no other complaints at this time including shortness of breath, chest pain, abdominal pain, nausea or vomiting, headache, or visual changes. (Jarod Tao) - Related Data Home Medications Medication Instructions Recorded Confirmed Atorvastatin [Lipitor] 40 mg PO HS 10/06/16 07/29/17 Docusate Sodium [Stool Softener] 100 mg PO BID 10/06/16 07/29/17 Metoprolol Tartrate [Lopressor] 50 mg PO DAILY 10/06/16 07/29/17 glyBURIDE [Diabeta] 5 mg PO BID 10/06/16 07/29/17 Apixaban [Eliquis] 10 mg PO DAILY 07/25/17 07/29/17 Multivitamin [Men's Multi-Vitamin] 1 each PO DAILY 07/25/17 07/29/17 [place]-3/Dha/Epa/Fish Oil [Fish Oil 1 each PO DAILY 07/25/17 07/29/17 500 mg Softgel] Previous Rx's Medication Instructions Recorded HYDROcodone/APAP 5-325MG [Cabot 1 tab PO Q6HR PRN #10 tab 07/29/17 5-325] Tamsulosin [Flomax] 0.4 mg PO DAILY #7 cap 07/29/17 Allergies Allergy/AdvReac Type Severity Reaction Status Date / Time No Known Allergies Allergy Verified 04/13/19 09:10 Review of Systems ROS Other: All systems not noted in ROS Statement are negative. <Jarod Tao - Last Filed: 04/13/19 11:17> ROS Other: All systems not noted in ROS Statement are negative. <Thierry Navarro - Last Filed: 04/13/19 11:27> ROS Statement: Those systems with pertinent positive or pertinent negative responses have been documented in the HPI. Past Medical History Past Medical History: Coronary Artery Disease (CAD), Cancer, Diabetes Mellitus, Hyperlipidemia, Hypertension, Osteoarthritis (OA) Additional Past Medical History / Comment(s): "leaky valve", shingles rt side 2012-has residual pain from it, SOB w/exertion since recent procedure, new dx. lymphoma with last chemo tx. 2016. States has a blood clot in his lung. History of Any Multi-Drug Resistant Organisms: None Reported Past Surgical History: Coronary Bypass/CABG, Heart Catheterization, Orthopedic Surgery, Prostate Surgery, Tonsillectomy Additional Past Surgical History / Comment(s): triple bypass 2003, hemorrhoid sx 1976, right carpal tunnel release sx, mediastinoscopy w/biopsy 10-26-16 Past Anesthesia/Blood Transfusion Reactions: No Reported Reaction Past Psychological History: No Psychological Hx Reported Smoking Status: Former smoker Past Alcohol Use History: None Reported Past Drug Use History: None Reported - Past Family History Father Family Medical History: Myocardial Infarction (CA) Mother Family Medical History: Congestive Heart Failure (CHF) <Jarod Tao P - Last Filed: 04/13/19 11:17> General Exam Limitations: no limitations General appearance: alert, in no apparent distress Head exam: Present: atraumatic, normocephalic, normal inspection Eye exam: Present: normal appearance, PERRL, EOMI. Absent: scleral icterus, conjunctival injection, periorbital swelling ENT exam: Present: normal exam, mucous membranes moist Neck exam: Present: normal inspection. Absent: tenderness, meningismus, lymphadenopathy Respiratory exam: Present: normal lung sounds bilaterally. Absent: respiratory distress, wheezes, rales, rhonchi, stridor Cardiovascular Exam: Present: regular rate, normal rhythm, normal heart sounds. Absent: systolic murmur, diastolic murmur, rubs, gallop, clicks Extremities exam: Present: full ROM (full range of motion of the right hip. However patient did have pain when lying back and lifting his right leg into the bed.), normal capillary refill (cap refill less than 2 seconds, DP pulse 2+ in the right lower extremity.). Absent: tenderness, pedal edema, joint swelling, calf tenderness <Jarod Tao - Last Filed: 04/13/19 11:17> Course <Jarod Tao - Last Filed: 04/13/19 11:17> <Thierry Navarro - Last Filed: 04/13/19 11:27> Vital Signs 04/13/19 09:07 Temperature 98.1 F Pulse Rate 61 Respiratory 16 Rate Blood Pressure 118/73 O2 Sat by Pulse 98 Oximetry - Reevaluation(s) Reevaluation #1: 04/13/19 09:41 Patient refused pain medication. (Jarod Tao) Reevaluation #2: 04/13/19 11:26 PA supervision: I did personally do a [id number] evaluation the patient he did suffer injury to his right hip and does have a comminuted fracture of the right greater trochanter. The case was discussed with Jesse rhodes who is covering Dr. Quinones. Medicine will be consulted. I do agree with the assessment and plan. (Thierry Navarro) Medical Decision Making <Jarod Tao - Last Filed: 04/13/19 11:17> - Medical Decision Making Neurovascular status intact in the right lower extremity. Patient does have good range of motion but is unable to bear weight of the right hip. Hip and pelvis x-ray report and image was reviewed. No acute fracture or dislocation noted. Therefore CT of the right hip was performed which showed a comminuted fracture of the right-sided greater trochanter without destructive mass. [facility] past. However patient wishes [facility] for this fracture. I did speak with him next branch she recommends admission to with consult to Dr. Martinez for medicine. (Jarod Tao) Disposition Is patient prescribed a controlled substance at d/c from ED?: No Time of Disposition: : <Jarod Tao - Last Filed: 04/13/19 11:17> <Thierry Navarro - Last Filed: 04/13/19 11:27> Clinical Impression: Hip fracture Disposition: ADMITTED IP TO THIS HOSP Condition: Fair Referrals: Maddi Bird MD [Primary Care Provider] - 1-2 days
--- NOTE | 2019-04-13 10:00 | XR ---
EXAMINATION TYPE: XR Hip RT and AP Pelvis DATE OF EXAM: 04/13/2019 COMPARISON: Most recent CT March 19, 2019. HISTORY: Pain after fall injury. TECHNIQUE: A single AP view of the pelvis is obtained. Two views of the right hip are obtained. FINDINGS: There is no acute fracture/dislocation evident in the pelvis. The sacroiliac joints appea r symmetric and unremarkable. There is redemonstration of asymmetric moderate to severe left-sided a xial joint space loss. There is more mild to moderate right-sided axial joint space loss. Mild bilate ral acetabular spurring is seen. Vascular calcification bilateral pelvis extends into bilateral groin region. There is partial visualization of spurring and disc space narrowing lower lumbar spine. Pubi c symphysis is maintained. Two views of right hip show no acute fracture or dislocation. No focal lytic or sclerotic lesion see n in the proximal right femur. The overlying soft tissue is unremarkable. IMPRESSION: There is no acute fracture or dislocation in the pelvis or right hip.
--- NOTE | 2019-04-13 10:37 | CT ---
EXAMINATION TYPE: CT hip RT wo con DATE OF EXAM: 04/13/2019 COMPARISON: None HISTORY: Fall, Rt hip pain CT DLP: 603.6 mGycm Automated exposure control for dose reduction was used. Unenhanced CT of the right hip was performed with bone and soft tissue window settings submitted. FINDINGS: There is evidence of a minimally comminuted greater trochanteric fracture with displacement of 1 mm. No intertrochanteric component identified at this time. Lesser trochanter is intact as is the femoral neck and head. Acetabulum is also intact. There is surrounding soft tissue edema. Pelvic structures are free of mass lesion. Prostate calcifications noted. No inguinal adenopathy appreciated. IMPRESSION: 1. COMMINUTED FRACTURE OF THE RIGHT-SIDED GREATER TROCHANTER WITHOUT DESTRUCTIVE MASS. NO ADDITIONAL FRACTURE SEEN. SURROUNDING SOFT TISSUE SWELLING NOTED.
[2019-04-13] MEDS ORDERED: SODIUM CHLORIDE 0.9% 500 ML 500 ML IV STA (10:44)
[2019-04-13] MEDS ORDERED: MORPHINE SULFATE 4 MG/ML SYRINGE IVP STA (10:44)
[2019-04-13] MEDS ORDERED: NALOXONE 0.4 MG/ML 1 ML VIAL IV PRN (11:13)
[2019-04-13] MEDS ORDERED: MORPHINE SULFATE 4 MG/ML SYRINGE IVP PRN (11:16)
[2019-04-13 11:34] LABS: Basophils % (A) 0 %; Eosinophils # (A) 0.1 k/uL (0-0.7); Eosinophils % (A) 1 %; HCT 36.7 % (39.0-53.0); HGB 12.3 gm/dL (13.0-17.5); Lymphocytes % (A) 13 %; MCH 30.8 pg (25.0-35.0); MCHC 33.4 g/dL (31.0-37.0); MCV 92.1 fL (80.0-100.0); Mean Platelet Volume 6.2; Monocytes # (A) 0.6 k/uL (0-1.0); Monocytes % (A) 8 %; Neutrophils # (A) 6.1 k/uL (1.3-7.7); Neutrophils % (A) 77 %; Platelet Count 130 k/uL (150-450); RBC 3.99 m/uL (4.30-5.90); RDW 12.5 % (11.5-15.5)
[2019-04-13 11:49] LABS: Albumin 3.7 g/dL (3.5-5.0); Potassium 4.3 mmol/L (3.5-5.1); Total Bilirubin 0.7 mg/dL (0.2-1.3); Total Protein 5.9 g/dL (6.3-8.2)
--- NOTE | 2019-04-13 12:09 | P.CNOR ---
History of Present Illness - [facility] Consult date: 04/13/19 Consult reason: fracture History of present illness: Patient is an 83-year-old man who presented to [facility] this morning with regards to pain involving his right hip. Patient had a fall at his family's house yesterday, he was climbing up stairs when he missed step falling on the right side. He was able to weight-bear initially, he has noted progressive pain into today. He denies hitting his head during the fall, he did not lose consciousness. Upon arrival to the hospital today, imaging test were done. X-rays and CT of the right hip did demonstrate a comminuted greater trochanteric fracture. I was contacted by the emergency room staff regarding this patient. Patient was evaluated by myself at bedside in the emergency room today, his family was present. Patient notes discomfort in the right hip region when he weightbears. He denies any orthopedic complaints at this time. Patient ambulates with no assistive devices, he lives at home with his . Currently denies any chest pain, shortness of breath, fever or chills Review of Systems Constitutional: Reports as per HPI Past Medical History Past Medical History: Coronary Artery Disease (CAD), Cancer, Diabetes Mellitus, Hyperlipidemia, Hypertension, Osteoarthritis (OA) Additional Past Medical History / Comment(s): "leaky valve", shingles rt side 2012-has residual pain from it, SOB w/exertion since recent procedure, new dx. lymphoma with last chemo tx. 2016. States has a blood clot in his lung. History of Any Multi-Drug Resistant Organisms: None Reported Past Surgical History: Coronary Bypass/CABG, Heart Catheterization, Orthopedic Surgery, Prostate Surgery, Tonsillectomy Additional Past Surgical History / Comment(s): triple bypass 2003, hemorrhoid sx 1976, right carpal tunnel release sx, mediastinoscopy w/biopsy 10-26-16 Past Anesthesia/Blood Transfusion Reactions: No Reported Reaction Past Psychological History: No Psychological Hx Reported Smoking Status: Former smoker Past Alcohol Use History: None Reported Past Drug Use History: None Reported - Past Family History Father Family Medical History: Myocardial Infarction ([place]) Mother Family Medical History: Congestive Heart Failure (CHF) Medications and Allergies Home Medications Medication Instructions Recorded Confirmed Type Atorvastatin [Lipitor] 40 mg PO HS 10/06/16 04/13/19 History Docusate Sodium [Stool Softener] 100 mg PO DAILY 10/06/16 04/13/19 History Metoprolol Tartrate [Lopressor] 50 mg PO DAILY 10/06/16 04/13/19 History glyBURIDE [Diabeta] 5 mg PO DAILY 10/06/16 04/13/19 History Multivitamin [Men's Multi-Vitamin] 1 each PO DAILY 07/25/17 04/13/19 History [place]-3/Dha/Epa/Fish Oil [Fish Oil 1 each PO DAILY 07/25/17 04/13/19 History 500 mg Softgel] Aspirin 81 mg PO DAILY 04/13/19 04/13/19 History Lactobacillus Acidophilus 1 tab PO DAILY 04/13/19 04/13/19 History [Acidophilus] Tamsulosin [Flomax] 0.4 mg PO BID 04/13/19 04/13/19 History Allergies Allergy/AdvReac Type Severity Reaction Status Date / Time No Known Allergies Allergy Verified 04/13/19 11:41 Physical Examination Right lower extremity: No obvious open lesions or sores, no significant areas of erythema or soft tissue swelling No effusion present on the knee, he is nontender with palpation surrounding the knee, lower leg including foot and ankle Logroll maneuver the hip reproduces no significant discomfort Plantar flexion, dorsiflexion, EHL, FHL are intact Sensory exam to light touch to the extremities intact, dorsal pedis pulses 2+ Results - Labs Labs: Abnormal Lab Results - Last 24 Hours (Table) 04/13/19 04/13/19 Range/Units 11:20 11:20 RBC 3.99 L (4.30-5.90) m/uL Hgb 12.3 L (13.0-17.5) gm/dL Hct 36.7 L (39.0-53.0) % Plt Count 130 L (150-450) k/uL Glucose 119 H (74-99) mg/dL Total Protein 5.9 L (6.3-8.2) g/dL H & H 04/13/19 Range/Units 11:20 Hgb 12.3 L (13.0-17.5) gm/dL Hct 36.7 L (39.0-53.0) % Result Diagrams: 04/13/19 11:20 04/13/19 11:20 - Diagnostic results Hip x-ray: report reviewed, image reviewed Hip CT: report reviewed, image reviewed Assessment and Plan Plan: Imaging: X-rays and computed tomography scan of the right hip are reviewed. Images demonstrated a comminuted right greater trochanteric fracture. Were unable to appreciate any extension into the lesser trochanter. No other acute fractures or dislocations identified Assessment: 1. Comminuted right greater trochanteric femur fracture 2. Status post fall from standing 3. Other medical comorbidities Plan: I was able to discuss the case, including both physical exam findings and imaging studies my attending Dr. Quinones. No orthopedic surgical intervention at this time, proceed with conservative measures. We will admit patient to the hospital at this time, physical therapy evaluation will be done Weight-bear as tolerated with walker and assistance Pain control, oral medication as needed GI and DVT prophylaxis, will begin Lovenox while inpatient Medical recommendations Depending on how patient does with physical therapy over the next few days, may consider discharge to home with home therapy and nursing. Patient may require subacute rehab placement, this would likely happen on 04/16/2019 Time with Patient: Less than 30
[2019-04-13] MEDS: SODIUM CHLORIDE 0.9% 1,000 ML IV SCH (12:52)
[2019-04-13] MEDS: traMADol 50 MG TAB PO SCH ×3 (14:11→21:41)
[2019-04-13] MEDS: ACETAMINOPHEN TAB 325 MG TAB PO PRN (20:03)
[2019-04-13] MEDS: INSULIN ASPART (NovoLOG) 100 UNIT/ML VIAL SQ SCH (20:13)
[2019-04-13 20:22] LABS: Glucose,Whole Blood 114 mg/dL (75-99)
[2019-04-13] MEDS: ATORVASTATIN 40 MG TAB PO SCH (20:27)
[2019-04-13] MEDS: TAMSULOSIN 0.4 MG CAP.ER.24H PO SCH (20:27)
--- NOTE | 2019-04-13 21:01 | P.CONS ---
History of Present Illness - Reason for Consult Consult date: 04/13/19 Medical management Requesting physician: Shyam Quinones - Chief Complaint Fall with right hip pain - History of Present Illness Consultation: This is a pleasant 83-year-old patient of Dr. Bird. Chronic stable medical conditions include coronary artery disease with bypass, diabetes mellitus type 2, hypertension, hyperlipidemia, BPH, history of large B-cell lymphoma treated with chemotherapy. Patient to call fall today injuring his right hip. Crit discharge: Studies showed a comminuted fracture of the right-sided greater trochanter without any destructive mass. No additional fractures. Patient had tripped and suffered a fall. No chest pain no shortness of breath. Appetite is normally good. Normally able to get about. No other injury. Did not pass out. Review of systems: GEN.: None EYES: None HEENT: None NECK: None RESPIRATORY: None CARDIOVASCULAR: None GASTROINTESTINAL: None GENITOURINARY: None MUSCULOSKELETAL: [Joint pains LYMPHATICS: None HEMATOLOGICAL: None PSYCHIATRY: None NEUROLOGICAL: None Social history: . Retired. Patient smoked for 26 years stopped in 1977. No alcohol. Physical examination: VITAL SIGNS: 98.1, 61, 16, 11 8/73, 98% room air GENERAL: [BMI 25.3, sitting up in bed. EYES: Pupils equal. Conjunctiva normal. HEENT: External appearance of nose and ears normal, oral cavity grossly normal. NECK: JVD not raised; masses not palpable. HEART: First and second heart sounds are normal; no edema. LUNGS: Respiratory rate normal; clear to auscultation. ABDOMEN: Soft, nontender, liver spleen not palpable, no masses palpable. PSYCH: Alert and oriented x3; mood and affect normal. NEUROLOGICAL: Cranial nerves grossly intact; no facial asymmetry, power and sensation grossly intact. LYMPHATICS: No lymph nodes palpable in the axilla and neck MUSCULOSKELETAL: Tenderness over the right hip, evidence of OA especially in the hands INVESTIGATIONS, reviewed in the clinical context: White count 8 hemoglobin 12.3 platelets 1:30 progression 4.3 bun 16 creatinine 0.93 EKG tracing personally reviewed by me-uneven baseline, sinus rhythm Computed tomography scan of the hip-comminuted fracture of the right greater trochanter Assessment: -Acute comminuted fracture of the right greater trochanter secondary to a mechanical fall -Coronary artery disease with a history of bypass -Diabetes mellitus type 2 -Hyperlipidemia -Essential hypertension -BPH - Plan: At this point orthopedic is planning for conservative approach. Home medications resumed. Lovenox for DVT prophylaxis for now. Accu-Cheks will be followed. Patient will see physical therapy and weightbearing as tolerated. Care was discussed with the patient. Questions were answered. Thank you Dr. Mayo Past Medical History Past Medical History: Coronary Artery Disease (CAD), Cancer, Diabetes Mellitus, Hyperlipidemia, Hypertension, Prostate Disorder, Pulmonary Embolus (PE) Additional Past Medical History / Comment(s): 2017 large B cell lymphoma/parachymal mass treated with chemotherapy, NIDDM type II, PE L lower lung, 2012 shingelles R back-still has nerve pain occasionally, BPH. History of Any Multi-Drug Resistant Organisms: None Reported Past Surgical History: Coronary Bypass/CABG, Heart Catheterization, Orthopedic Surgery, Tonsillectomy Additional Past Surgical History / Comment(s): Bronchoscopies/biopsies, mediastinoscopy with lymph node biopsy, 2003 CABG-3 vessel, L inguinal fatty tumor removal, colonoscopies with benign polypectomy, hemorrhoidectomy. Past Anesthesia/Blood Transfusion Reactions: No Reported Reaction Smoking Status: Former smoker - Past Family History Father History Unknown: Yes Family Medical History: Myocardial Infarction ([place]) Additional Family Medical History / Comment(s): Father left when pt was [age] year old. Mother Family Medical History: Congestive Heart Failure (CHF) Medications and Allergies Home Medications Medication Instructions Recorded Confirmed Type Atorvastatin [Lipitor] 40 mg PO HS 10/06/16 04/13/19 History Docusate Sodium [Stool Softener] 100 mg PO DAILY 10/06/16 04/13/19 History Metoprolol Tartrate [Lopressor] 50 mg PO DAILY 10/06/16 04/13/19 History glyBURIDE [Diabeta] 5 mg PO DAILY 10/06/16 04/13/19 History Multivitamin [Men's Multi-Vitamin] 1 each PO DAILY 07/25/17 04/13/19 History [place]-3/Dha/Epa/Fish Oil [Fish Oil 1 each PO DAILY 07/25/17 04/13/19 History 500 mg Softgel] Aspirin 81 mg PO DAILY 04/13/19 04/13/19 History Lactobacillus Acidophilus 1 tab PO DAILY 04/13/19 04/13/19 History [Acidophilus] Tamsulosin [Flomax] 0.4 mg PO BID 04/13/19 04/13/19 History Allergies Allergy/AdvReac Type Severity Reaction Status Date / Time No Known Allergies Allergy Verified 04/13/19 11:41 Physical Exam Vitals: Vital Signs Temp Pulse Pulse Pulse Resp BP BP 04/13/19 19:53 99.1 F 81 16 149/71 04/13/19 13:16 97.6 F 68 12 136/72 04/13/19 12:25 98.1 F 76 18 122/86 04/13/19 12:10 76 18 122/86 04/13/19 09:07 98.1 F 61 16 118/73 Pulse Ox 04/13/19 19:53 97 04/13/19 13:16 96 04/13/19 12:25 97 04/13/19 12:10 97 04/13/19 09:07 98 Intake and Output 04/13/19 04/13/19 04/13/19 06:59 14:59 22:59 Intake Total 200 Output Total 700 Balance -500 Intake: Oral 200 Output: Urine 700 Other: Weight 89.358 kg Results CBC & Chem 7: 04/13/19 11:20 04/13/19 11:20 Labs: Abnormal Lab Results - Last 24 Hours (Table) 04/13/19 04/13/19 04/13/19 Range/Units 11:20 11:20 20:11 RBC 3.99 L (4.30-5.90) m/uL Hgb 12.3 L (13.0-17.5) gm/dL Hct 36.7 L (39.0-53.0) % Plt Count 130 L (150-450) k/uL Glucose 119 H (74-99) mg/dL POC Glucose (mg/dL) 114 H (75-99) mg/dL Total Protein 5.9 L (6.3-8.2) g/dL
[2019-04-13] MEDS: ENOXAPARIN 40 MG/0.4 ML SYRINGE SQ SCH (21:41)
[2019-04-14 06:59] LABS: Glucose,Whole Blood 126 mg/dL (75-99)
[2019-04-14] MEDS: INSULIN ASPART (NovoLOG) 100 UNIT/ML VIAL SQ SCH ×8 (08:21→20:43)
[2019-04-14] MEDS: METOPROLOL TARTRATE 50 MG TAB PO SCH (08:36)
[2019-04-14] MEDS: MULTIVITAMINS, THERA 1 EACH TAB PO SCH (08:37)
[2019-04-14] MEDS: glipiZIDE 10 MG TAB PO SCH (08:37)
[2019-04-14] MEDS: ENOXAPARIN 40 MG/0.4 ML SYRINGE SQ SCH (08:37)
[2019-04-14] MEDS: TAMSULOSIN 0.4 MG CAP.ER.24H PO SCH ×2 (08:37→21:49)
[2019-04-14] MEDS: traMADol 50 MG TAB PO SCH ×4 (08:43→23:29)
[2019-04-14 11:18] LABS: Glucose,Whole Blood 174 mg/dL (75-99)
--- NOTE | 2019-04-14 12:40 | P.PN ---
Subjective Progress Note Date: 04/14/19 Principal diagnosis: Comminuted right greater trochanteric femur fracture Patient evaluated at bedside, he is resting comfortably, he has multiple family members present. He's done very well with physical therapy today with ambulating with walker. His pain is well-controlled. Denies any chest pain, shortness of breath, fever or chills. Objective - Vital Signs Vital signs: Vital Signs Temp 98.0 F 04/14/19 07:00 Pulse 84 04/14/19 08:50 Resp 17 04/14/19 07:00 BP 127/74 04/14/19 07:00 Pulse Ox 95 04/14/19 07:00 Intake & Output 04/13/19 04/14/19 04/14/19 18:59 06:59 18:59 Intake Total 200 825 480 Output Total 700 650 Balance -500 175 480 Weight 89.358 kg Intake: Intake, IV Titration 825 Amount Sodium Chloride 0.9% 1, 825 000 ml @ 75 mls/hr IV . [id number] GÉNESIS Rx#:[id number] Oral 200 480 Output: Urine 700 650 Other: # Voids 4 - Exam Right lower extremity: No obvious open sores or lesions present throughout the extremity, minimal soft tissue swelling present over the lateral aspect of the hip. Logroll maneuver the hip reproduces minimal discomfort Calf is soft, no tenderness with palpation Plantar flexion, dorsiflexion, EHL, FHL are intact. Sensory exam light touch throughout extremities intact. Dorsal pedis pulses 2+ - Labs CBC & Chem 7: 04/13/19 11:20 04/13/19 11:20 Labs: Abnormal Lab Results - Last 24 Hours (Table) 04/13/19 04/14/19 04/14/19 Range/Units 20:11 06:48 11:07 POC Glucose (mg/dL) 114 H 126 H 174 H (75-99) mg/dL Assessment and Plan Plan: Assessment: 1. Comminuted right greater trochanteric femur fracture 2. Status post fall from standing 3. Other medical comorbidities Plan: Continue work with physical therapy, weight-bear as tolerated with walker Pain control, oral medication as needed GI and DVT prophylaxis, will begin Lovenox while inpatient, plan for aspirin 81 mg twice a day at discharge Medical recommendations If patient continues to do very well through tomorrow, plan for discharge to home with home physical therapy. Time with Patient: Less than 30
[2019-04-14] MEDS: SODIUM CHLORIDE 0.9% 1,000 ML IV SCH ×2 (12:52→14:42)
[2019-04-14 14:07] LABS: Hemoglobin A1C 6.5 % (4.0-6.0)
[2019-04-14 17:06] LABS: Glucose,Whole Blood 78 mg/dL (75-99)
[2019-04-14] MEDS ORDERED: POLYETHYLENE GLYCOL 3350 17 GM POWD.PACK PO PRN (18:36)
[2019-04-14 20:53] LABS: Glucose,Whole Blood 113 mg/dL (75-99)
--- NOTE | 2019-04-14 21:31 | P.PN ---
Progress Note - Text Progress Note Date: 04/14/19 - Chief Complaint Fall with right hip pain Interval history: This is a pleasant 83-year-old patient of Dr. Bird. Chronic stable medical conditions include coronary artery disease with bypass, diabetes mellitus type 2, hypertension, hyperlipidemia, BPH, history of large B-cell lymphoma treated with chemotherapy. Patient to call fall today injuring his right hip. Crit discharge: Studies showed a comminuted fracture of the right-sided greater trochanter without any destructive mass. No additional fractures. Patient had tripped and suffered a fall. No chest pain no shortness of breath. Appetite is normally good. Normally able to get about. No other injury. Did not pass out. Today-laying in bed. Comfortable. Pain is controlled. Currently his diet. Allowed to weight-bear. Review of systems: Was done for constitutional, cardiovascular, GI, pulmonary. relevant finding as above Active Medications Acetaminophen (Tylenol Tab) 650 mg PO Q6HR PRN PRN Reason: Fever and/ or Pain Last Admin: 04/13/19 20:03 Dose: 650 mg Documented by: Atorvastatin Calcium (Lipitor) 40 mg PO HS [facility] Last Admin: 04/13/19 20:27 Dose: 40 mg Documented by: Enoxaparin Sodium (Lovenox) 40 mg SQ DAILY [facility] Last Admin: 04/14/19 08:37 Dose: 40 mg Documented by: Glipizide (Glucotrol) 10 mg PO AC-[id number] [facility] Last Admin: 04/14/19 08:37 Dose: 10 mg Documented by: Sodium Chloride (Saline 0.9%) 1,000 mls @ 75 mls/hr IV .[id number] [facility] Last Admin: 04/14/19 14:42 Dose: Not Given Documented by: Insulin Aspart (Novolog) 0 unit SQ ACHS [facility]; Protocol Last Admin: 04/14/19 19:38 Dose: Not Given Documented by: Insulin Aspart (Novolog) 0 unit SQ ACHS [facility]; Protocol Last Admin: 04/14/19 20:43 Dose: Not Given Documented by: Metoprolol Tartrate (Lopressor) 50 mg PO DAILY [facility] Last Admin: 04/14/19 08:36 Dose: 50 mg Documented by: Morphine Sulfate (Morphine Sulfate (Inj)) 4 mg IVP Q6H PRN PRN Reason: Pain Multivitamins (Theragran) 1 each PO DAILY [facility] Last Admin: 04/14/19 08:37 Dose: 1 each Documented by: Naloxone HCl (Narcan) 0.2 mg IV Q2M PRN PRN Reason: Opioid Reversal Polyethylene Glycol (Miralax) 17 gm PO DAILY PRN PRN Reason: Constipation Tamsulosin HCl (Flomax) 0.4 mg PO BID [facility] Last Admin: 04/14/19 08:37 Dose: 0.4 mg Documented by: Tramadol HCl (Ultram) 50 mg PO QID [facility] Last Admin: 04/14/19 17:55 Dose: 50 mg Documented by: Physical examination: VITAL SIGNS: 97.6, 66, 15, 11 7/66, 97% on room air GENERAL: propped up in bed, comfortable EYES: Pupils equal. Conjunctiva normal. HEENT: External appearance of nose and ears normal, oral cavity grossly normal. NECK: JVD not raised; masses not palpable. HEART: First and second heart sounds are normal; no edema. LUNGS: Respiratory rate normal; clear to auscultation. ABDOMEN: Soft, nontender, liver spleen not palpable, no masses palpable. PSYCH: Alert and oriented x3; mood and affect normal. MUSCULOSKELETAL: Tenderness over the right hip, evidence of OA especially in the hands INVESTIGATIONS, reviewed in the clinical context: Accu-Cheks noted White count 8 hemoglobin 12.3 platelets 1:30 progression 4.3 bun 16 creatinine 0.93 EKG tracing personally reviewed by me-uneven baseline, sinus rhythm Computed tomography scan of the hip-comminuted fracture of the right greater trochanter Assessment: -Acute comminuted fracture of the right greater trochanter secondary to a mechanical fall -Coronary artery disease with a history of bypass -Diabetes mellitus type 2 -Hyperlipidemia -Essential hypertension -BPH - Plan: stable. Continue current medication for plan. Thank your Dr. Mayo
[2019-04-14] MEDS: ACETAMINOPHEN TAB 325 MG TAB PO PRN (21:49)
[2019-04-14] MEDS: ATORVASTATIN 40 MG TAB PO SCH (21:49)
[2019-04-15 06:50] LABS: Glucose,Whole Blood 120 mg/dL (75-99)
[2019-04-15 07:20] VITALS: BP 123/70; PULSE 106; RESP 16; TEMP 98.3
[2019-04-15] MEDS: INSULIN ASPART (NovoLOG) 100 UNIT/ML VIAL SQ SCH ×4 (08:06→12:20)
[2019-04-15] MEDS: ENOXAPARIN 40 MG/0.4 ML SYRINGE SQ SCH (08:10)
[2019-04-15] MEDS: METOPROLOL TARTRATE 50 MG TAB PO SCH (08:10)
[2019-04-15] MEDS: glipiZIDE 10 MG TAB PO SCH (08:11)
[2019-04-15] MEDS: MULTIVITAMINS, THERA 1 EACH TAB PO SCH (08:11)
[2019-04-15] MEDS: SODIUM CHLORIDE 0.9% 1,000 ML IV SCH (08:11)
[2019-04-15] MEDS: TAMSULOSIN 0.4 MG CAP.ER.24H PO SCH (08:11)
[2019-04-15] MEDS: traMADol 50 MG TAB PO SCH (08:11)
--- NOTE | 2019-04-15 11:17 | P.PN ---
Subjective Progress Note Date: 04/15/19 Principal diagnosis: Comminuted right greater trochanteric femur fracture Patient evaluated at bedside, he is resting comfortably, he has multiple family members present. He's done very well with physical therapy today with ambulating with walker. His pain is well-controlled. Denies any chest pain, shortness of breath, fever or chills. Objective - Vital Signs Vital signs: Vital Signs Temp 98.3 F 04/15/19 06:45 Pulse 106 H 04/15/19 06:45 Resp 16 04/15/19 07:45 BP 123/70 04/15/19 06:45 Pulse Ox 96 04/15/19 06:45 Intake & Output 04/14/19 04/15/19 04/15/19 18:59 06:59 18:59 Intake Total 1360 765 Balance 1360 765 Intake: Intake, IV Titration 600 225 Amount Sodium Chloride 0.9% 1, 600 225 000 ml @ 75 mls/hr IV . [id number] GÉNESIS Rx#:[id number] Oral 760 540 Other: # Voids 2 2 - Exam Right lower extremity: No obvious open sores or lesions present throughout the extremity, minimal soft tissue swelling present over the lateral aspect of the hip. Logroll maneuver the hip reproduces minimal discomfort Calf is soft, no tenderness with palpation Plantar flexion, dorsiflexion, EHL, FHL are intact. Sensory exam light touch throughout extremities intact. Dorsal pedis pulses 2+ - Labs CBC & Chem 7: 04/13/19 11:20 04/13/19 11:20 Labs: Abnormal Lab Results - Last 24 Hours (Table) 04/13/19 04/14/19 04/14/19 Range/Units 11:20 11:07 20:41 POC Glucose (mg/dL) 174 H 113 H (75-99) mg/dL Hemoglobin A1c 6.5 H (4.0-6.0) % 04/15/19 Range/Units 06:46 POC Glucose (mg/dL) 120 H (75-99) mg/dL Hemoglobin A1c (4.0-6.0) % Assessment and Plan Plan: Assessment: 1. Comminuted right greater trochanteric femur fracture 2. Status post fall from standing 3. Other medical comorbidities Plan: Continue work with physical therapy, weight-bear as tolerated with walker Pain control, oral Tylenol as needed, prescription for tramadol 50 mg was prescribed also GI and DVT prophylaxis, 81 mg twice a day Medical recommendations Plan for discharge home today Time with Patient: Less than 30
--- NOTE | 2019-04-15 11:18 | P.DS ---
Providers Date of admission: 04/13/19 11:23 Expected date of discharge: 04/15/19 Attending physician: Shyam Quinones Consults: 04/13/19 11:15 Consult Physician Routine Consulting Provider: Aramis Dickerson Consult Reason/Comments: medical consult Do you want consulting provider notified?: Yes Primary care physician: Maddi Bird Hospital Course: Date of admission: 04/13/2019 Date of discharge: 04/15/2019 Admission diagnosis: Comminuted right greater trochanteric femur fracture Discharge diagnosis: Same Attending physician: Dr. Quinones Surgical procedures: None Brief history: Patient is a 83-year-old male with a history of a fall at a family members home on 04/12/2019. Patient reports to the hospital on 04/13/2019 due to increasing pain and difficulty with ambulating. X-rays determine the patient had a comminuted right greater trochanteric femur fracture. We proceeded with conservative management, nor orthopedic surgical intervention. Hospital course: Patient's orthopeidc and medical care was provided daily. Patient had daily laboratory tests performed for evaluation of overall blood counts. Patient had daily physical therapy to include strengthening range of motion as well as education with walker ambulation. Given patient's otherwise satisfactory course and having met physical therapy goals, plan is to discharge patient home on 04/15/2019 Discharge condition/disposition: Patient will be discharged home in stable condition with home care Discharge medications: Instructions are given on resumption of patient's normal daily medications per primary care recommendation, in addition patient will be prescribed tramadol 50 mg. Discharge instructions: 1. Weight-bear as tolerated, utilize walker at all times 2. Utilize ice often 3. Tylenol oral pain medication as needed 4. Plan for follow-up in orthopedics in 10-14 days, [phone] Patient Condition at Discharge: Good Plan - Discharge Summary Discharge Rx Participant: No New Discharge Prescriptions: New Aspirin [Adult Low Dose Aspirin EC] 81 mg PO BID #60 tablet. traMADol HCl [Ultram] 50 mg PO Q6H PRN #28 tab PRN Reason: Pain No Action Docusate Sodium [Stool Softener] 100 mg PO DAILY glyBURIDE [Diabeta] 5 mg PO DAILY Metoprolol Tartrate [Lopressor] 50 mg PO DAILY Atorvastatin [Lipitor] 40 mg PO HS [place]-3/Dha/Epa/Fish Oil [Fish Oil 500 mg Softgel] 1 each PO DAILY Multivitamin [Men's Multi-Vitamin] 1 each PO DAILY Tamsulosin [Flomax] 0.4 mg PO BID Lactobacillus Acidophilus [Acidophilus] 1 tab PO DAILY Discharge Medication List Atorvastatin [Lipitor] 40 mg PO HS 10/06/16 [History] Docusate Sodium [Stool Softener] 100 mg PO DAILY 10/06/16 [History] Metoprolol Tartrate [Lopressor] 50 mg PO DAILY 10/06/16 [History] glyBURIDE [Diabeta] 5 mg PO DAILY 10/06/16 [History] Multivitamin [Men's Multi-Vitamin] 1 each PO DAILY 07/25/17 [History] [place]-3/Dha/Epa/Fish Oil [Fish Oil 500 mg Softgel] 1 each PO DAILY 07/25/17 [History] Lactobacillus Acidophilus [Acidophilus] 1 tab PO DAILY 04/13/19 [History] Tamsulosin [Flomax] 0.4 mg PO BID 04/13/19 [History] Aspirin [Adult Low Dose Aspirin EC] 81 mg PO BID #60 tablet.dr 04/15/19 [Rx] traMADol HCl [Ultram] 50 mg PO Q6H PRN #28 tab 04/15/19 [Rx] Follow up Appointment(s)/Referral(s): [facility], [NON-STAFF] - 1-2 Days Maddi Bird MD [Primary Care Provider] - 1-2 days Yinka Nesbitt PAC [PHYSICIAN TAXATION CONSULTANT] - 10 Days Activity/Diet/Wound Care/Special Instructions: Orthopedic discharge instructions: 1. Weight-bear as tolerated, utilize walker at all times 2. Ice and elevate the area 3. Pain medication, [id number] Tylenol as needed 4. Plan for follow-up at [facility] in 10-14 days Discharge Disposition: HOME WITH HOME HEALTH SERVICES
--- NOTE | 2019-04-15 23:03 | P.PN ---
Progress Note - Text Progress Note Date: 04/15/19 - Chief Complaint Fall with right hip pain Interval history: This is a pleasant 83-year-old patient of Dr. Bird. Chronic stable medical conditions include coronary artery disease with bypass, diabetes mellitus type 2, hypertension, hyperlipidemia, BPH, history of large B-cell lymphoma treated with chemotherapy. Patient fell injuring his right hip.: Studies showed a comminuted fracture of the right-sided greater trochanter without any destructive mass. No additional fractures. Patient had tripped and suffered a fall. No chest pain no shortness of breath. Appetite is normally good. Normally able to get about. No other injury. Did not pass out. Today-pain is much better controlled. Walking with some support. No new issues. Family is present. No chest pain. Breathing comfortable. Review of systems: Was done for constitutional, cardiovascular, GI, pulmonary. relevant finding as above Current medications reviewed in today's electronic records Physical examination: VITAL SIGNS: 98.3, 16, 123/70, 96% on room air GENERAL: propped up in bed, comfortable EYES: Pupils equal. Conjunctiva normal. HEENT: External appearance of nose and ears normal, oral cavity grossly normal. NECK: JVD not raised; masses not palpable. HEART: First and second heart sounds are normal; no edema. LUNGS: Respiratory rate normal; clear to auscultation. ABDOMEN: Soft, nontender, liver spleen not palpable, no masses palpable. PSYCH: Alert and oriented x3; mood and affect normal. 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 He has tolerated per orthopedics -Coronary artery disease with a history of bypass -Diabetes mellitus type 2 -Hyperlipidemia -Essential hypertension -BPH - Plan: Care discussed with the patient. No new issues. To follow-up with his family doctor.. Thank your Dr. Mayo
== END 2019-04-15 12:47 | disposition home health service (06) | DRG 536 ==
LOC: EC 09:02 → 4SSUR 11:23
PROVIDERS: ADMIT Orthopaedic Surgery; ATTEND Orthopaedic Surgery
DX: S72.111A Displaced fracture of greater trochanter of right femur, initial encounter for closed fracture (principal); C83.30 Diffuse large B-cell lymphoma, unspecified site; W10.9XXA Fall (on) (from) unspecified stairs and steps, initial encounter; E11.9 Type 2 diabetes mellitus without complications; E78.5 Hyperlipidemia, unspecified; I10 Essential (primary) hypertension; I25.10 Atherosclerotic heart disease of native coronary artery without angina pectoris; N40.0 Benign prostatic hyperplasia without lower urinary tract symptoms; Z79.82 Long term (current) use of aspirin; Z79.01 Long term (current) use of anticoagulants; Z79.84 Long term (current) use of oral hypoglycemic drugs; Z79.899 Other long term (current) drug therapy; Z82.49 Family history of ischemic heart disease and other diseases of the circulatory system; Z86.711 Personal history of pulmonary embolism; Z87.891 Personal history of nicotine dependence; Z95.1 Presence of aortocoronary bypass graft; M19.90 Unspecified osteoarthritis, unspecified site
CPT/HCPCS: 36415; 73502; 80053; 83036; 85025; 93005; 99285

== ENCOUNTER → 2019-09-12 | Outpatient (CLI) | payer MEDICARE ==
[2019-09-12 08:47] LABS: African American GFR (CKD) >90 (>60 ml/min/1.73 sqM); Blood Urea Nitrogen 15 mg/dL (9-20); Non-African American GFR(CKD) 80 (>60 ml/min/1.73 sqM)
--- NOTE | 2019-09-12 10:43 | CT ---
EXAMINATION TYPE: CT ChestAbdPelvis w con DATE OF EXAM: 09/12/2019 INDICATION: hemoptysis, follow up lymphoma COMPARISON: CT chest abdomen pelvis 03/19/2019 CT DLP: 1060.4 mGycm CONTRAST: Performed with Oral Contrast and with IV Contrast, patient injected with 100 mL of Isovue 300. TECHNIQUE: Axial images at 5 mm thick sections. Reconstructed images in the coronal plane. Delayed images through the kidneys. FINDINGS: CT CHEST: Portion of the thyroid visualized is normal. There is a small left pleural effusion. There is an area of pneumonitis in the posterior medial left lung base this is an interval finding. This area measures approximately 1.8 cm. Series 5 image 45. Th is is nonspecific. Infectious etiologies as well as mass could be considered. Follow-up is recommende d. No enlarged mediastinal or hilar adenopathy is evident. The ascending aorta diameter at the level of the main pulmonary artery is 3.4 cm. The main pulmonary artery diameter at the bifurcation is 2.6 cm. Coronary artery calcification is present. CT ABDOMEN: Liver: Normal Spleen: Normal Pancreas: Normal Adrenal glands: The adrenal glands are normal. Gallbladder: Normal Kidneys: No masses are evident. No hydronephrosis is present. No cysts are present. Delayed images were obtained through the kidneys, which remain unremarkable. Aorta: Vascular calcification is within the aorta. Inferior vena cava: Normal. CT PELVIS: Loops of bowel within the abdomen and pelvis are normal. There are loops of bowel which are incom pletely distended or lack oral contrast limiting their evaluation. Appendix: Normal as visualized. Urinary bladder: Normal. Genitourinary structures: Prostate is prominent contains minimal calcification. Osseous structures: No suspicious lytic or sclerotic lesions. No suspicious lymphadenopathy is evident. IMPRESSIONS: 1. No suspicious changes suggest recurrent lymphoma. 2. Interval development of an irregular area of increased density posterior medial left lung base leyla suring 1.8 cm. Infectious etiology could be considered. Atelectasis could be considered. Underlying m ass is not excluded. Recommend short-term follow-up CT chest in 3 months.
== END | disposition home or self-care (01) ==
LOC: RADPROMAIN 07:36
PROVIDERS: ATTEND Internal Medicine Hematology & Oncology
DX: C85.88 Other specified types of non-Hodgkin lymphoma, lymph nodes of multiple sites (principal); R04.2 Hemoptysis; R91.8 Other nonspecific abnormal finding of lung field
CPT/HCPCS: 82565; 84520; 71260; 74177; J1642; Q9967

== ENCOUNTER → 2019-12-24 | Outpatient (CLI) | payer MEDICARE ==
--- NOTE | 2019-12-24 15:39 | CT ---
EXAMINATION TYPE: CT chest wo con DATE OF EXAM: 12/24/2019 COMPARISON: CT chest 09/12/2019 HISTORY: Follow up scan per patient. Lymphoma. CT DLP: 636 mGycm Automated exposure control for dose reduction was used. CONTRAST: CT scan of the chest is performed without intravenous contrast. FINDINGS: LUNGS: Lungs are grossly clear. Resolution of the previously described opacity of the left lung base on 09/12/2019 CT comparison. No concerning parenchymal mass or nodule identified. Tiny bilateral pleur al effusions. No pneumothorax. The tracheobronchial tree is patent. MEDIASTINUM/SOFT TISSUES: No axillary, hilar, or mediastinal lymphadenopathy greater than 1 cm. Cardi ac size is normal. Calcified coronary artery disease. No pericardial effusion. No thoracic aortic ane urysm. Calcified atherosclerotic disease of the thoracic aorta. Sternotomy wires. UPPER ABDOMEN: No adrenal nodule. OSSEOUS: No acute osseous abnormality. Increased thoracic kyphosis. Degenerative changes of the spine . Decreased osseous mineralization. IMPRESSION: 1. Resolution of the previously described left lower lobe opacity. 2. Tiny bilateral pleural effusions.
== END | disposition home or self-care (01) ==
LOC: RADCTMAIN 11:29
PROVIDERS: ATTEND Internal Medicine Hematology & Oncology
DX: J90 Pleural effusion, not elsewhere classified (principal); C85.88 Other specified types of non-Hodgkin lymphoma, lymph nodes of multiple sites
CPT/HCPCS: 71250

== ENCOUNTER → 2020-03-24 | Outpatient (CLI) | payer MEDICARE ==
[2020-03-24 10:25] LABS: African American GFR (CKD) >90 (>60 ml/min/1.73 sqM); Blood Urea Nitrogen 11 mg/dL (9-20); Non-African American GFR(CKD) >90 (>60 ml/min/1.73 sqM)
--- NOTE | 2020-03-24 12:17 | CT ---
EXAMINATION TYPE: CT ChestAbdPelvis w con DATE OF EXAM: 03/24/2020 COMPARISON: CT September 12, 2019 and older studies. Prior PET/CT October 16, 2016 HISTORY: Lymphoma diagnosed 2016. CT DLP: 1226 mGycm. Automated Exposure Control for Dose Reduction was Utilized. CONTRAST: CT scan of the thorax, abdomen and pelvis is performed with oral and with IV Contrast, patient inject ed with 100 mL of Isovue 300. FINDINGS: LUNGS: Small to tiny bilateral pleural effusions slightly larger from prior study. Mild bibasilar rizwan ear scarring and/or atelectasis. No new nodules or masses. MEDIASTINUM: There are no new greater than 1 cm hilar or mediastinal lymph nodes. No pericardial ef fusion is seen. Post-CABG changes with mediastinal clips and sternal wires is redemonstrated. Stable cardiomegaly. OTHER: Stable right subclavian Mediport catheter.. LIVER/GB: No significant abnormality is appreciated. PANCREAS: No significant abnormality is seen. SPLEEN: No significant abnormality is seen. ADRENALS: No significant abnormality is seen. KIDNEYS: No significant abnormality is seen. BOWEL: Prominent duodenal diverticulum redemonstrated along the duodenal sweep. GENITAL ORGANS: Upper limits of normal in size bulging on bladder base. LYMPH NODES: There is no suspicious 1.5 x 1.4 cm lower abdominal posterior mesenteric lymph node on i mage 97, in retrospect was present on prior study same image and is increasing in size. It was subcen timeter in size on prior study. OSSEOUS STRUCTURES: [id number]-[id number] multilevel spurring in the spine. OTHER: No significant additional abnormality is seen. IMPRESSION: Suspicious recurrent disease felt present as there is new enlarged lymph node in the lowe r abdomen. Consider repeat PET/CT to further evaluate.
== END | disposition home or self-care (01) ==
LOC: RADCTMAIN 09:21
PROVIDERS: ATTEND Internal Medicine Hematology & Oncology
DX: C85.88 Other specified types of non-Hodgkin lymphoma, lymph nodes of multiple sites (principal)
CPT/HCPCS: 82565; 84520; 71260; 74177; 36415; J1642; Q9967

== ENCOUNTER → 2020-06-24 | Outpatient (CLI) | payer MEDICARE ==
[2020-06-24 12:56] LABS: African American GFR (CKD) >90 (>60 ml/min/1.73 sqM); Blood Urea Nitrogen 12 mg/dL (9-20); Non-African American GFR(CKD) >90 (>60 ml/min/1.73 sqM)
--- NOTE | 2020-06-24 15:37 | CT ---
EXAMINATION TYPE: CT ChestAbdPelvis w con DATE OF EXAM: 06/24/2020 COMPARISON: HISTORY: lymphoma follow up CT DLP: 1300.3 mGycm Automated exposure control for dose reduction was used. CONTRAST: CT scan of the chest, abdomen and pelvis is performed with Oral Contrast and with IV Contrast, patien t injected with 100 mL of Isovue 300. FINDINGS: LUNGS: Pleural effusions have increased in size slightly in the interval The tracheobronchial tree is patent. MEDIASTINUM: There are no greater than 1 cm hilar or mediastinal lymph nodes. No pericardial effusi on is seen. Patient is post median sternotomy. There are coronary artery calcifications present. AORTA: No significant abnormality is seen. OTHER: No additional significant abnormality is seen. LIVER/GB: No significant abnormality is appreciated. PANCREAS: No significant abnormality is seen. SPLEEN: No significant abnormality is seen. ADRENALS: No significant abnormality is seen. KIDNEYS: No significant abnormality is seen. REPRODUCTIVE ORGANS: Prostate is enlarged and shows associated calcifications. BOWEL: Duodenal diverticula with air-fluid levels present at the third and fourth portion of the duo denum as on prior exam. FREE AIR: No Free Air visible. ASCITES: None seen. RETROPERITONEAL ADENOPATHY: Soft tissue mass seen at the level of the aortic bifurcation, proximal r ight common iliac artery is present and measures 2.3 x 2 cm which is increased from prior.. LYMPH NODES: No greater than 1 cm abdominal or pelvic lymph nodes are appreciated. URINARY BLADDER: No significant abnormality is seen. PELVIC ADENOPATHY: None visualized. OSSEOUS STRUCTURES: No significant double change is seen. IMPRESSION: Interval increase in size in abnormal soft tissue mass within the pelvis.
== END | disposition home or self-care (01) ==
LOC: RADPROMAIN 11:56
PROVIDERS: ATTEND Internal Medicine Hematology & Oncology
DX: R19.09 Other intra-abdominal and pelvic swelling, mass and lump (principal); C85.88 Other specified types of non-Hodgkin lymphoma, lymph nodes of multiple sites
CPT/HCPCS: 82565; 84520; 71260; 74177; J1642; Q9967

== ENCOUNTER → 2020-07-25 | Outpatient (CLI) | payer MEDICARE ==
--- NOTE | 2020-07-25 14:19 | PE ---
EXAMINATION TYPE: PET CT fusion skull to thigh DATE OF EXAM: 07/25/2020 COMPARISON: Prior chest CT June 24, 2020 and older studies. HISTORY: History of lymphoma diagnosed in chest 2017 and completed chemotherapy 2018. TECHNIQUE: Following the intravenous administration of 10.49 mCi of F-18 FDG, whole body images are performed from the skull base to the midthigh. Images are reviewed on the computer in the coronal, a xial, and sagittal planes. Reconstructed rotating images are created on independent workstation and reviewed on the computer. A localization and attenuation correction CT is performed in conjunction with the PET scan. Blood glucose level equals 107. SCAN: Subsequent Scan FINDINGS: Mean SUV mediastinum: 0.78 Mean SUV liver: 1.9 SKULL BASE AND NECK: Focus of 1.1 x 0.7 cm asymmetric increased hypermetabolic uptake right hypophar ynx level vocal cords image 59 with slight asymmetric thickening, neoplasm at this level cannot be ex cluded. Max SUV is 3.51. Follow-up direct visualization advised. CHEST, MEDIASTINUM, AND HILAR REGION: No new hypermetabolic enlarging greater than 1 cm lymph nodes i n the mediastinum. No new hypermetabolic right lower lobe nodules. No new areas of abnormal hypermeta bolic uptake. Persistent tqzfn-et-uvogmlqs sized bilateral pleural effusions and background cardiomeg poncho and post-CABG changes. ABDOMEN AND PELVIS: There is new suspicious hypermetabolic left mid abdominal 10 by 9 mm lymph node a xial image 178 just inferior to the duodenal sweep. The max SUV is 2.82. Past the iliac bifurcation measures 2.1 x 1.8 cm hypermetabolic mass or adenopathy corresponding to a alfred of concern on recent CT. The max SUV is 11.46. Mild hypermetabolic uptake along subcentimeter left iliac chain lymph node axial image 213 measures 1 2 x 5 mm, max SUV is 4.76. Mild hypermetabolic uptake corresponding to subcentimeter lymph node is nieto spicious in the right iliac chain at same level. OSSEOUS STRUCTURES: No new areas of abnormal hypermetabolic uptake. OTHER CT: Stable right subclavian Mediport catheter. Moderate calcified plaque of the abdominal aorta extends into branch vessels. Enlarged prostate consi stent with BPH. Multilevel spurring in the spine. IMPRESSION: 1. Active neoplastic lymphoma recurrence though present as detailed above below the diaphragm with id entified at least 3 suspicious lymph nodes. 2. New hypopharyngeal neoplasm cannot be excluded, advise ENT referral and direct visualization to fu rther assess..
== END ==
LOC: RADPETMAIN 09:35
PROVIDERS: ATTEND Internal Medicine Hematology & Oncology
DX: C85.98 Non-Hodgkin lymphoma, unspecified, lymph nodes of multiple sites (principal)
CPT/HCPCS: 78815; A9552

== ENCOUNTER 2020-08-06 09:06 | Day surgery (SDC) | payer MEDICARE ==
[2020-08-05 09:48] VITALS: BMI 24.6
[~2020-08-06 09:06] MED LIST changes: -DEXAMETHASONE SOD PHOSPHATE 10 MG/ML 1 ML VIAL IV ONE; +DEXAMETHASONE SOD PHOSPHATE 4 MG/ML 1 ML VIAL IV PRN; +FAMOTIDINE 20 MG/2 ML VIAL IV PRN; -HEPARIN SODIUM,PORCINE 5,000 UNIT/ML 1 ML VIAL SQ ONE; -LACTATED RINGERS 1,000 ML IV ONE; +LACTATED RINGERS 1,000 ML IV SCH; -LIDOCAINE 1% 20 ML VIAL (10MG/ML) FOR IV START INTRADERMA PRN; -MIDAZOLAM 2 MG/2 ML VIAL IV PRN; +ONDANSETRON 4 MG/2 ML VIAL IVP PRN; -SCOPOLAMINE 1.5MG/72HR PATCH TRANSDERM ONE; -ceFAZolin IN SWFI 2 GM/20 ML SYRINGE IVP ONE; +fentaNYL (PF) 50 MCG/ML 2 ML AMP IV PRN
[2020-08-06 10:31] LABS: Glucose,Whole Blood 123 mg/dL (75-99)
[2020-08-06] MEDS ORDERED: SUCCINYLCHOLINE CHLORIDE 100 MG/5 ML SYR IV ONE (10:35)
[2020-08-06] MEDS ORDERED: PROPOFOL 10 MG/ML 20 ML VIAL IV ONE (10:35)
[2020-08-06] MEDS ORDERED: PHENYLEPHRINE-0.9% NACL SYG 1,000 MCG/10 ML SYRINGE ONE (10:35)
[2020-08-06] MEDS ORDERED: DEXAMETHASONE SOD PHOSPHATE 10 MG/ML 1 ML VIAL ONE (10:35)
[2020-08-06] MEDS ORDERED: fentaNYL (PF) 50 MCG/ML 2 ML AMP ONE (10:35)
[2020-08-06] MEDS ORDERED: MIDAZOLAM 2 MG/2 ML VIAL ONE (10:35)
[2020-08-06] MEDS ORDERED: LIDOCAINE 1% INJ 10MG/ML (20 ML MDV) ONE (10:35)
--- NOTE | 2020-08-06 11:01 | P.OP ---
Date of Procedure: 08/06/20 Preoperative Diagnosis: Right true vocal cord lesion Postoperative Diagnosis: Same Procedure(s) Performed: Microlaryngoscopy with biopsy right vocal cord lesion Anesthesia: GETA Surgeon: Rickey Briggs Estimated Blood Loss (ml): 1 Pathology: other (Right vocal cord biopsy) Condition: stable Disposition: PACU Indications for Procedure: This is an 85-year-old white male with a 3 month history of hoarseness and has notable right true vocal cord lesion on flexible laryngoscopy Operative Findings: Diffuse exophytic pink irregular lesion involving the entire right true vocal cord although just short of the anterior commissure and extending posterior brittanie ost to the arytenoid. This was approximately 2 mm short of the anterior commissure as well as the arytenoid on the right. This was confined to the true vocal cord with no involvement of the ventricle or subglottis Description of Procedure: The patient brought in the operative suite and placed in a supine position. Patient underwent induction of general anesthesia with oral endotracheal intubation without difficulty. The patient was prepped and draped in usual aseptic fashion and the tooth guard was placed. Direct laryngoscopy was performed with systematic evaluation of the base of tongue vallecula both piriform sinuses post cricoid area and endolarynx. With the glottis in good visualization the laryngoscope was placed in suspension. The Zeiss microscope was brought into position to visualize the true vocal cords bilaterally. Multiple biopsies were taken of the right true vocal cord with debulking of this lesion although this was felt to be a diagnostic procedure and not therapeutic as this was not possible to remove all of this lesion and if this is malignant will require further treatment such as radiotherapy. Hemostasis was gained spontaneously and was good. The patient was suctioned in the larynx and the laryngoscope and tooth guard were removed. The patient was then allowed to emerge from general anesthesia having tolerated procedure well and was extubated in the operating suite and transferred to postop recovery area in satisfactory condition.
[2020-08-06 11:27] VITALS: TEMP 97.4
[2020-08-06 11:50] VITALS: RESP 16
[2020-08-06 12:16] VITALS: BP 151/81; PULSE 62
== END 2020-08-06 12:29 | disposition home or self-care (01) ==
LOC: OR 09:06
PROVIDERS: ATTEND Otolaryngology
DX: C32.0 Malignant neoplasm of glottis (principal); E11.9 Type 2 diabetes mellitus without complications; I25.10 Atherosclerotic heart disease of native coronary artery without angina pectoris; I10 Essential (primary) hypertension; E78.5 Hyperlipidemia, unspecified; Z95.1 Presence of aortocoronary bypass graft; Z87.891 Personal history of nicotine dependence; N42.9 Disorder of prostate, unspecified; Z79.82 Long term (current) use of aspirin; Z90.89 Acquired absence of other organs; Z85.72 Personal history of non-Hodgkin lymphomas; Z92.21 Personal history of antineoplastic chemotherapy; Z79.84 Long term (current) use of oral hypoglycemic drugs; Z79.899 Other long term (current) drug therapy; Z91.09 Other allergy status, other than to drugs and biological substances
CPT/HCPCS: 88305; 88342; 31536; J2250; J1100; J2405; J2001; J3010; J2370; J0330; J2704

== ENCOUNTER → 2020-10-22 | Outpatient (CLI) | payer MEDICARE ==
--- NOTE | 2020-10-23 18:40 | CT ---
EXAMINATION TYPE: CT ChestAbdPelvis w con DATE OF EXAM: 10/22/2020 INDICATION: Lymphoma COMPARISON: 07/25/2020 PET/CT, 06/24/2020 CT DLP: 1276.2 mGycm CONTRAST: Performed with Oral Contrast and with IV Contrast, patient injected with 100 mL of Isovue 300. TECHNIQUE: Axial images at 5 mm thick sections. Reconstructed images in the coronal plane. Delayed images through the kidneys. FINDINGS: CT CHEST: Portion of the thyroid visualized is normal. There is a small to moderate right and a small left pleural effusion. No suspicious lung masses are e vident. No enlarged mediastinal or hilar adenopathy is evident. No suspicious axillary adenopathy is evident. Supraclavicular regions appear within normal limits The ascending aorta diameter at the level of the main pulmonary artery is 3.6 cm. The main pulmonary artery diameter at the bifurcation is 2.8 cm. Very minimal pericardial effusion may be present. CT ABDOMEN: Liver: Normal Spleen: Normal Pancreas: Normal Adrenal glands: The adrenal glands are normal. Gallbladder: Normal Kidneys: No masses are evident. No hydronephrosis is present. No cysts are present. Delayed images were obtained through the kidneys, which remain unremarkable. Aorta: Vascular calcification is within the aorta. Minimal fusiform prominence of the mid abdominal aorta is present with an AP diameter of 2.7 cm. Inferior vena cava: Normal. CT PELVIS: Loops of bowel within the abdomen and pelvis are normal. There are loops of bowel which are incom pletely distended or lack oral contrast limiting their evaluation. Appendix: Normal as visualized. Urinary bladder: Decompressed with limited evaluation. Genitourinary structures: Prostate appears within normal limits. Osseous structures: No suspicious lytic or sclerotic lesions. Degenerative changes are present within the lumbar spine. There is a subtle sclerotic area within the right medial iliac wing, series 3 imag e 110 Lymphadenopathy: Inguinal regions are clear. No iliac or obturator canal adenopathy is evident. No nieto spicious periaortic or retrocaval adenopathy is present. Previous suspicious lymph node in the periao rtic region below the duodenum is not identified on the current exam. Previous left iliac chain adeno cipriano is not identified on current exam. These were previously borderline in size, consider follow-up PET/CT which may be more sensitive. IMPRESSIONS: 1. No suspicious changes to suggest recurrent or metastatic lymphoma.
== END | disposition home or self-care (01) ==
LOC: RADPROMAIN 09:14
PROVIDERS: ATTEND Internal Medicine Hematology & Oncology
DX: C85.90 Non-Hodgkin lymphoma, unspecified, unspecified site (principal)
CPT/HCPCS: 82565; 84520; 71260; 74177; J1642; Q9967

== ENCOUNTER → 2021-04-21 | Outpatient (CLI) | payer MEDICARE ==
--- NOTE | 2021-04-22 17:12 | CT ---
EXAMINATION TYPE: CT ChestAbdPelvis w con DATE OF EXAM: 04/21/2021 INDICATION: f/u lymphoma COMPARISON: 10/22/2020 CT DLP: 987 mGycm CONTRAST: Performed with Oral Contrast and with IV Contrast, patient injected with 100 mL of Isovue 300. TECHNIQUE: Axial images at 5 mm thick sections. Reconstructed images in the coronal plane. Delayed images through the kidneys. FINDINGS: CT CHEST: Portion of the thyroid visualized is normal. No suspicious lung nodules or focal infiltrates are present. Small bilateral pleural effusions are pr esent. No enlarged mediastinal or hilar adenopathy is evident. The ascending aorta diameter at the level of the main pulmonary artery is 3.5 cm. The main pulmonary artery diameter at the bifurcation is 2.[address] ABDOMEN: Liver: Normal Spleen: Normal Pancreas: Normal Adrenal glands: The adrenal glands are normal. Gallbladder: Normal Kidneys: No masses are evident. No hydronephrosis is present. No cysts are present. Delayed images were obtained through the kidneys, which remain unremarkable. Aorta: Vascular calcification is within the aorta. Inferior vena cava: Normal. CT PELVIS: Loops of bowel within the abdomen and pelvis are normal. There are loops of bowel which are incom pletely distended or lack oral contrast limiting their evaluation. Appendix: Normal as visualized. Urinary bladder: Normal. Genitourinary structures: Prostate is prominent Osseous structures: No suspicious lytic or sclerotic lesions. Lymphadenopathy: No suspicious enlarged lymph nodes are evident within the chest abdomen or pelvis. IMPRESSIONS: 1. Small bilateral pleural effusions. 2. No suspicious enlarged lymphadenopathy.
== END | disposition home or self-care (01) ==
LOC: RADPROMAIN 13:11
PROVIDERS: ATTEND Internal Medicine Hematology & Oncology
DX: J90 Pleural effusion, not elsewhere classified (principal)
CPT/HCPCS: 82565; 84520; 71260; 74177; 36415; J1642; Q9967

== ENCOUNTER → 2021-10-13 | Outpatient (CLI) | payer MEDICARE ==
--- NOTE | 2021-10-13 12:44 | CT ---
EXAMINATION TYPE: CT ChestAbdPelvis w con DATE OF EXAM: 10/13/2021 COMPARISON: Most recent CT April 21, 2021 and older studies HISTORY: Other types of non-hodgkins lymphoma diagnosed 2016. CT DLP: 1619 mGycm. Automated Exposure Control for Dose Reduction was Utilized. CONTRAST: CT scan of the thorax, abdomen and pelvis is performed with oral and with IV Contrast, patient inject ed with 100 ml mL of Isovue 300. FINDINGS: LUNGS: Small to moderate-sized bilateral pleural effusions redemonstrated not significantly changed f rom most recent CT. Associated compressive atelectasis in the bases. Focal mild linear scarring in th e lingula redemonstrated. No new greater than 5 mm nodules or masses. MEDIASTINUM: There are no new greater than 1 cm hilar or mediastinal lymph nodes. No pericardial ef fusion is seen. Post-CABG changes with mediastinal clips and sternal wires is redemonstrated. Stable cardiomegaly. OTHER: Stable right subclavian Mediport catheter. LIVER/GB: No significant abnormality is appreciated. PANCREAS: No significant abnormality is seen. SPLEEN: No significant abnormality is seen. ADRENALS: No significant abnormality is seen. KIDNEYS: No significant abnormality is seen. BOWEL: Prominent 2.9 cm duodenal diverticulum redemonstrated along the duodenal sweep axial image 79. Oral contrast reaches level of splenic flexure. No suspicious small or large bowel dilatation. GENITAL ORGANS: Upper limits of normal in size bulging on bladder base. LYMPH NODES: Recurrent suspicious adenopathy just past the aortic bifurcation is now identified with several small lymph nodes. There is superior left 1.3 x 0.9 cm lymph node axial image 97. There is 1. 1 x 1.1 cm lymph node inferiorly axial image 101. Findings new from most recent CT findings near the area of recurrent adenopathy on 2020 PET/CT. OSSEOUS STRUCTURES: [id number] multilevel spurring in the spine. OTHER: Moderate to severe calcified plaque of the aorta extends into branch vessels. IMPRESSION: Suspicious recurrent disease felt present as there is new prominent and borderline enlarg ed lymph nodes in the lower abdomen just past the iliac bifurcation. Consider repeat PET/CT to confir m.
== END | disposition home or self-care (01) ==
LOC: RADPROMAIN 09:06
PROVIDERS: ATTEND Internal Medicine Hematology & Oncology
DX: C85.80 Other specified types of non-Hodgkin lymphoma, unspecified site (principal); R59.0 Localized enlarged lymph nodes
CPT/HCPCS: 82565; 84520; 71260; 74177; J1642; Q9967

== ENCOUNTER 2022-01-11 11:49 | Day surgery (SDC) | payer MEDICARE ==
[2022-01-11 12:16] VITALS: RESP 16; TEMP 96.9
[2022-01-11 12:29] LABS: Glucose,Whole Blood 129 mg/dL (70-110)
--- NOTE | 2022-01-11 13:27 | IR ---
Fluoroscopic portogram(mediport). HISTORY: Device malfunction. The patient presented to the [facility] with a Ortiz needle within the port. There is free aspiration prior to the exam as reported nurse. Injection of small amount contrast demonstrates immediate extravasatio n along the proximal margin catheter stenting to the clavicular region. Contrast is seen extending ou t the distal catheter. The findings are suspicious for a partial fracture of the catheter. Referring clinician immediately notified by telephone. IMPRESSION: 1. Overt extravasation in the proximal aspect of the catheter near the proximal catheter. Suspect cat heter partial fracture.
[2022-01-11 16:36] VITALS: BP 129/73; PULSE 91
== END 2022-01-11 13:32 | disposition home or self-care (01) ==
LOC: CATHCVL 11:49
PROVIDERS: ATTEND Radiology Diagnostic Radiology
DX: T82.594A Other mechanical complication of infusion catheter, initial encounter (principal); Z20.822 Contact with and (suspected) exposure to COVID-19
CPT/HCPCS: 36598; 87635

== ENCOUNTER → 2022-01-11 | Outpatient (CLI) | payer MEDICARE ==
--- NOTE | 2022-01-11 12:41 | CT ---
EXAMINATION TYPE: CT ChestAbdPelvis w con DATE OF EXAM: 01/11/2022 COMPARISON: 10/13/2021 HISTORY: Non Hodgkins Lymphoma CT DLP: 1546 mGycm CONTRAST: CT scan of the chest, abdomen and pelvis is performed with Oral Contrast and with IV Contrast, patien t injected with 100 ml mL of Isovue 300. CT Chest: LUNGS: The lungs are clear and free of infiltrate or atelectasis. No pulmonary nodule or mass is det ected. Bilateral pleural effusions are redemonstrated. MEDIASTINUM: Thoracic aorta is of normal rafael manjeet. The heart is enlarged. No evidence for mediastinal mass or adenopathy. HILAR STRUCTURES: No evidence for mass. No hilar adenopathy is appreciated. OTHER: No significant abnormality. CONTRAST CT ABDOMEN AND PELVIS FINDINGS: LIVER/GB: No calcified gallstones. No space occupying hepatic lesion. Biliary tree is of normal ca liber. PANCREAS: No inflammation. No distinct mass. SPLEEN: No splenic enlargement. No lesion seen. ADRENALS: No nodule. No thickening. KIDNEYS/BLADDER: No hydronephrosis. No nephrolithiasis. No disctinct renal mass. BOWEL: Normal appendix. Normal bowel caliber. No inflammation. GENITAL ORGANS: There are enlarging lymph nodes noted low anterior small bowel mesentery just below t he level of the aortic bifurcation measuring up to 2.4 cm with prior maximal measurement of 1.3 cm. A dditional adjacent lymph nodes measuring 1.2 cm and 1.0 cm respectively. No additional adenopathy gre ater than 1 cm identified within the abdomen or pelvis. LYMPH NODES: No greater than 1cm abdominal or pelvic lymph nodes are appreciated. AORTA: No significant abnormality. OSSEOUS STRUCTURES: No significant abnormality is seen. OTHER: No significant additional abnormality is seen. IMPRESSION: 1. There are enlarging lymph nodes noted low anterior small bowel mesentery just below the level of t he aortic bifurcation measuring up to 2.4 cm with prior maximal measurement of 1.3 cm. Additional adj acent lymph nodes measuring 1.2 cm and 1.0 cm respectively. 2. Bilateral pleural effusions.
== END | disposition home or self-care (01) ==
LOC: RADPROMAIN 09:52
PROVIDERS: ATTEND Internal Medicine Hematology & Oncology
DX: C85.88 Other specified types of non-Hodgkin lymphoma, lymph nodes of multiple sites (principal); J90 Pleural effusion, not elsewhere classified
CPT/HCPCS: 82565; 84520; 71260; 74177; 36415; Q9967

== ENCOUNTER 2022-01-28 10:49 | Day surgery (SDC) | payer MEDICARE ==
[2022-01-25 15:23] VITALS: BMI 22.4
[~2022-01-28 10:49] MED LIST changes: +ACETAMINOPHEN TAB 500 MG TAB PO PRN; -DEXAMETHASONE SOD PHOSPHATE 4 MG/ML 1 ML VIAL IV PRN; -FAMOTIDINE 20 MG/2 ML VIAL IV PRN; +HEPARIN SODIUM,PORCINE/PF 5,000 UNIT/0.5 ML SYRINGE SQ PRN; -ONDANSETRON 4 MG/2 ML VIAL IVP ONE; -ONDANSETRON 4 MG/2 ML VIAL IVP PRN; -fentaNYL (PF) 50 MCG/ML 2 ML AMP IV PRN
[2022-01-28 12:04] LABS: Glucose,Whole Blood 105 mg/dL (70-110)
[2022-01-28 12:07] VITALS: TEMP 98.4
[2022-01-28] MEDS ORDERED: DEXAMETHASONE SOD PHOSPHATE 4 MG/ML 1 ML VIAL IVP ONE (12:09)
[2022-01-28] MEDS ORDERED: ONDANSETRON 4 MG/2 ML VIAL ONE (12:10)
[2022-01-28] MEDS ORDERED: ONDANSETRON 4 MG/2 ML VIAL IVP ONE (12:10)
--- NOTE | 2022-01-28 13:45 | P.GSHP ---
History of Present Illness H&P Date: 01/28/22 Chief Complaint: Lymphoma 86-year-old male here today for Port-A-Cath removal. Patient with history of lymphoma. Has had a right subclavian Port-A-Cath since 2017. No longer using it for chemotherapy. Occasionally uses it for blood draws and CAT scans. Unfortunately the catheter is no longer working for him. Patient initially was scheduled for Port-A-Cath replacement but since that time he has decided to remove it instead. 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 hx throat cancer, History of Any Multi-Drug Resistant Organisms: None Reported Past Surgical History: Coronary Bypass/CABG, Heart Catheterization, Orthopedic Surgery, Tonsillectomy Additional Past Surgical History / Comment(s): Bronchoscopies/biopsies, mediastinoscopy with lymph node biopsy, 2003 CABG-3 vessel, L inguinal fatty tumor removal, colonoscopies , hemorrhoidectomy, rt carpal tunnel Past Anesthesia/Blood Transfusion Reactions: No Reported Reaction Smoking Status: Former smoker - Past Family History Father History Unknown: Yes Family Medical History: Myocardial Infarction (SD) Additional Family Medical History / Comment(s): Father left when pt was [age] year old. Mother Family Medical History: Congestive Heart Failure (CHF) Son(s) Family Medical History: Cancer Medications and Allergies Home Medications Medication Instructions Recorded Confirmed Type Atorvastatin [Lipitor] 40 mg PO 1800 10/06/16 01/28/22 History Docusate Sodium [Stool Softener] 100 mg PO DAILY PRN 10/06/16 01/28/22 History Metoprolol Tartrate [Lopressor] 50 mg PO DAILY 10/06/16 01/28/22 History glyBURIDE [Diabeta] 2.5 mg PO DIRECTED PRN 10/06/16 01/28/22 History Tamsulosin [Flomax] 0.4 mg PO BID 04/13/19 01/28/22 History Acetaminophen Tab [Tylenol] 650 mg PO Q6HR PRN tab 04/15/19 01/28/22 Rx Apixaban [Eliquis] 2.5 mg PO BID 01/11/22 01/28/22 History Furosemide [Lasix] 40 mg PO DAILY 01/11/22 01/28/22 History Potassium Chloride [K-Tab ER] 20 meq PO DAILY 01/11/22 01/28/22 History Allergies Allergy/AdvReac Type Severity Reaction Status Date / Time No Known Allergies Allergy Verified 01/28/22 12:07 Surgical - Exam Vital Signs Temp Pulse Resp BP Pulse Ox 98.4 F 76 16 120/77 97 01/28/22 11:56 01/28/22 11:56 01/28/22 11:56 01/28/22 11:56 01/28/22 11:56 Physical exam: General: Well-developed, well-nourished HEENT: Normocephalic, sclerae nonicteric Abdomen: Nontender, nondistended Extremities: No edema Neuro: Alert and oriented Chest: Right-sided Port-A-Cath in place Assessment and Plan (1) Lymphoma Narrative/Plan: Will proceed with Port-A-Cath removal at this time. Discussed with patient and his daughter that occasionally the catheter can be adherent to the first rib and clavicle. In that case there is an unlikely possibility that the catheter would have to be ligated and left in place to be evaluated on a later date by vascular surgery. Otherwise risks of bleeding infection and scarring reviewed. They understand and wish to proceed. Current Visit: No Status: Acute Code(s): C85.90 - NON-HODGKIN LYMPHOMA, UNSPECIFIED, UNSPECIFIED SITE SNOMED Code(s): 555212174
[2022-01-28] MEDS ORDERED: PROPOFOL 10 MG/ML 20 ML VIAL IV ONE (14:15)
[2022-01-28] MEDS ORDERED: fentaNYL (PF) 50 MCG/ML 2 ML AMP ONE (14:15)
[2022-01-28] MEDS ORDERED: LIDOCAINE 1% INJ 10MG/ML (20 ML MDV) SQ ONE ×3 (14:34→14:35)
[2022-01-28 15:25] VITALS: BP 129/70; PULSE 73; RESP 18
[2022-01-28] MEDS ORDERED: NALOXONE 0.4 MG/ML 1 ML VIAL IV PRN (16:10)
[2022-01-28] MEDS ORDERED: ACETAMINOPHEN TAB 325 MG TAB PO PRN (16:10)
--- NOTE | 2022-01-28 16:11 | P.OP ---
Date of Procedure: 01/28/22 Procedure(s) Performed: PREOPERATIVE DIAGNOSIS: Lymphoma POSTOPERATIVE DIAGNOSIS: Same PROCEDURE: Port-A-Cath removal SURGEON: Yony EBL: Minimal ANESTHESIA: Sedation COMPLICATIONS: None OPERATIVE PROCEDURE: Patient was placed in the supine position. The patient was sedated per anesthesia that time. The chest was prepped and draped in the usual sterile fashion. The skin was localized with Marcaine solution. The previous incision was re-incised using a scalpel. The port was easily excised using acco mmodation of blunt dissection sharp dissection and electrocautery. The subcutaneous tissues were reapproximated using 3-0 Vicryl sutures. The skin was reapproximated using 4-0 Monocryl sutures. Skin glue was then applied. DISPOSITION: Stable to recovery room
== END 2022-01-28 15:35 | disposition home or self-care (01) ==
LOC: OR 10:49
PROVIDERS: ATTEND Surgery
DX: C85.90 Non-Hodgkin lymphoma, unspecified, unspecified site (principal); I25.10 Atherosclerotic heart disease of native coronary artery without angina pectoris; E11.9 Type 2 diabetes mellitus without complications; E78.5 Hyperlipidemia, unspecified; I10 Essential (primary) hypertension; G93.89 Other specified disorders of brain; N42.9 Disorder of prostate, unspecified; N40.0 Benign prostatic hyperplasia without lower urinary tract symptoms; C83.30 Diffuse large B-cell lymphoma, unspecified site; Z86.19 Personal history of other infectious and parasitic diseases; Z92.21 Personal history of antineoplastic chemotherapy; Z86.711 Personal history of pulmonary embolism; Z85.818 Personal history of malignant neoplasm of other sites of lip, oral cavity, and pharynx; Z95.5 Presence of coronary angioplasty implant and graft; Z95.1 Presence of aortocoronary bypass graft; Z98.890 Other specified postprocedural states; Z90.89 Acquired absence of other organs; Z87.891 Personal history of nicotine dependence; Z82.49 Family history of ischemic heart disease and other diseases of the circulatory system; Z80.9 Family history of malignant neoplasm, unspecified; Z79.899 Other long term (current) drug therapy; Z79.84 Long term (current) use of oral hypoglycemic drugs
CPT/HCPCS: 36590; J1100; J0690; J2405; J2001; J3010; J2704; J1644

== ENCOUNTER → 2022-04-19 | Outpatient (CLI) | payer MEDICARE ==
--- NOTE | 2022-04-19 14:17 | CT ---
EXAMINATION TYPE: CT ChestAbdPelvis w con CT DLP: 1884 mGycm, Automated exposure control for dose reduction was used. DATE OF EXAM: 04/19/2022 12:58 PM COMPARISON: CT 01/11/2022 CLINICAL INDICATION:Male, 86 years old with history of C85.88 OTH TYPES OF NON-HODGKIN LYMPHOMA; [facility], f/u lymphoma Technique: Multiple axial images of the chest, abdomen, and pelvis were obtained. Two-dimensional cor onal and sagittal reconstructions were obtained. Contrast used:70cc mL of Isovue 300 with IV Contrast, Oral contrast used: with Oral Contrast Findings: CHEST: LUNGS/ PLEURA: Moderate bilateral pleural effusions may be minimally increased in size from prior. AIRWAY: Patent and unremarkable. HEART: The heart is mildly enlarged for size. There is coronary artery atherosclerosis. MEDIASTINUM: No gross evidence of adenopathy. VASCULATURE: No aortic aneurysm. MUSCULOSKELETAL: No acute osseous abnormalities. Sternotomy wires are present. SOFT TISSUES/LYMPH NODES: Unremarkable. LOWER NECK: No significant findings. ABDOMEN: ABDOMEN LIVER: Unremarkable GALLBLADDER AND BILE DUCTS: Unremarkable. PANCREAS: Unremarkable. SPLEEN: Unremarkable. ADRENAL GLANDS: Unremarkable. KIDNEYS AND URETERS: No evidence of hydronephrosis or renal calculus. The ureters are unremarkable. PELVIS BLADDER: Unremarkable REPRODUCTIVE: Prostate is enlarged in size measuring 5.0 cm in transverse dimension. ABDOMEN & PELVIS STOMACH AND BOWEL: No evidence of bowel obstruction. Second and third portion duodenal diverticulum p resent. PERITONEUM: No evidence of pneumoperitoneum or free fluid. VASCULATURE: No evidence of aortic aneurysm. MUSCULOSKELETAL: No acute osseous abnormalities, multilevel disc degeneration changes throughout the spine. LYMPH NODES: Conglomerate lymphadenopathy within the mesentery just below the aortic bifurcation has increased in size largest portion measuring 3.4 x 2.6 cm with multiple smaller adjacent lymph nodes w hich appear increased in volume than most recent prior. SOFT TISSUE/ABDOMINAL WALL: Unremarkable IMPRESSION: 1. Progression of disease with increase in size of lymph nodes within the mesentery. 2. Interval increase in the pleural effusions now moderate in size. 3. No megaly with coronary artery disease.
== END | disposition home or self-care (01) ==
LOC: RADCTMAIN 10:53
PROVIDERS: ATTEND Internal Medicine Hematology & Oncology
DX: C85.88 Other specified types of non-Hodgkin lymphoma, lymph nodes of multiple sites (principal); J90 Pleural effusion, not elsewhere classified; R59.0 Localized enlarged lymph nodes
CPT/HCPCS: 82565; 84520; 71260; 74177; 36415; Q9967

== ENCOUNTER → 2022-08-17 | Outpatient (CLI) | payer MEDICARE ==
--- NOTE | 2022-08-17 11:41 | CT ---
EXAMINATION TYPE: CT ChestAbdPelvis w con CT DLP: 1822 mGycm, Automated exposure control for dose reduction was used. DATE OF EXAM: 08/17/2022 10:52 AM COMPARISON: Multiple CT chest abdomen pelvis most recent 04/19/2022 CLINICAL INDICATION:Male, 87 years old with history of C85.88 Technique: Multiple axial images of the chest, abdomen, and pelvis were obtained. Two-dimensional cor onal and sagittal reconstructions were obtained. Contrast used:70cc mL of Isovue 300 with IV Contrast, Oral contrast used: with Oral Contrast Findings: CHEST: LUNGS/ PLEURA: Similar moderate bilateral pleural effusions with right greater than left. No focal co nsolidation. No pneumothorax. AIRWAY: Patent and unremarkable. HEART: The heart is mildly enlarged for size. There is coronary artery atherosclerosis. MEDIASTINUM: No evidence of adenopathy. VASCULATURE: No aortic aneurysm. MUSCULOSKELETAL: No acute osseous abnormalities. Sternotomy wires are present. SOFT TISSUES/LYMPH NODES: Unremarkable. LOWER NECK: No significant findings. ABDOMEN: ABDOMEN LIVER: Unremarkable GALLBLADDER AND BILE DUCTS: Unremarkable. PANCREAS: Unremarkable. SPLEEN: Unremarkable. ADRENAL GLANDS: Unremarkable. KIDNEYS AND URETERS: No evidence of hydronephrosis or renal calculus. The ureters are unremarkable. PELVIS BLADDER: Incompletely distended but grossly unremarkable. REPRODUCTIVE: Coarse calcifications of the prostate gland are identified. ABDOMEN & PELVIS STOMACH AND BOWEL: Stomach is unremarkable. Diverticulum involving the second/third portion of the du odenum redemonstrated. No evidence of bowel obstruction. The appendix is within normal limits. Enteri c contrast reaches the distal small bowel. PERITONEUM: No evidence of pneumoperitoneum or free fluid. VASCULATURE: No evidence of aortic aneurysm. MUSCULOSKELETAL: No acute osseous abnormalities, multilevel disc degeneration changes throughout the spine. LYMPH NODES: Conglomerate lymphadenopathy within the mesentery just below the aortic bifurcation has mildly decreased in size with largest lymph node measuring up to 2.7 cm with multiple smaller adjacen t lymph nodes which appear mildly decreased in volume than most recent prior. SOFT TISSUE/ABDOMINAL WALL: Mild diffuse anasarca. IMPRESSION: 1. Mild decrease in size of lymph nodes within the mesentery from prior examination on 04/19/2022. No new adenopathy within the chest. Continued follow-up is recommended. 2. Similar moderate sized bilateral pleural effusions with right greater than left.
== END | disposition home or self-care (01) ==
LOC: RADCTMAIN 08:46
PROVIDERS: ATTEND Internal Medicine Hematology & Oncology
DX: C85.88 Other specified types of non-Hodgkin lymphoma, lymph nodes of multiple sites (principal); D70.2 Other drug-induced agranulocytosis; J90 Pleural effusion, not elsewhere classified; I51.9 Heart disease, unspecified; R59.0 Localized enlarged lymph nodes
CPT/HCPCS: 82565; 84520; 71260; 74177; 36415; Q9967

== ENCOUNTER → 2023-02-23 | Outpatient (CLI) | payer MEDICARE ==
[2023-02-23 12:07] LABS: African American GFR (CKD) >90 (>60 ml/min/1.73 sqM); Blood Urea Nitrogen 28 mg/dL (9-20); Non-African American GFR(CKD) 78 (>60 ml/min/1.73 sqM)
--- NOTE | 2023-02-23 19:37 | CT ---
EXAMINATION TYPE: CT ChestAbdPelvis w con DATE OF EXAM: 02/23/2023 COMPARISON: 08/17/2022, 04/19/2022 HISTORY: 87-year-old male C85.88 OT TYPES OF NON-HODGKIN LYMPHOMA TECHNIQUE: Contiguous axial scanning of the chest, abdomen, and pelvis performed with IV Contrast, pa tient injected with 100 mL of Isovue 300. Delayed images through the kidneys were obtained. Coronal/s agittal reconstructions performed. CT DLP: 833.2 mGycm Automated exposure control for dose reduction was used. FINDINGS: CHEST: Median sternotomy wires and post-CABG changes. Heart borderline enlarged without pericardial effusion . There is some reflux of contrast into the hepatic veins and Aorta normal caliber with conventional arch vessel branching anatomy. No thoracic lymphadenopathy by CT size criteria. Ongoing moderate bilateral pleural effusions. Biapical pleural parenchymal scarring. Bandlike atelect asis or scarring at the left base. Adjacent patchy bibasilar atelectasis noted. ABDOMEN: No focal liver lesion. No biliary ductal dilatation. Portal venous system is patent. Gallbladder, adrenal glands, spleen, and pancreas show no gross abnormality. Delayed excretion of contrast from the kidneys. Correlate with BUN/creatinine to exclude ANDRES. Eggshell calcification at the splenic hilum measuring 1.4 cm is unchanged suggesting a splenic artery aneurysm. There are 2 duodenal diverticula projecting superiorly into the pancreatic head region measuring up t o 3.6 cm. No dilated small bowel, free fluid, or free air. Mild stool burden. Proximal sigmoid diverticulosis. No pericolonic inflammatory change. Bilobed lower mesenteric soft tissue cl mass measuring 5.3 x 3.8 cm, increased from 3.7 x 2.5 cm, previously. No other mesenteric or retroperitoneal adenopathy seen. PELVIS: Generalized anasarca change. The prostate gland enlargement 4.6 cm wide. Right-sided pelvic phleboli th. Bladder partially distended. No abnormal fluid collection the pelvis or pelvic lymphadenopathy. BONES: Moderate degenerative change left hip and mild of the right hip. DISH throughout the mid and lower t horacic spine. Moderate spondylotic change throughout the lumbar spine. Degenerative grade 1 retrolis thesis L2-L3 and L3-L4. No osseous destructive process. IMPRESSION: 1. BILOBED CL MASS IN THE LOWER MID MESENTERY HAS INCREASED IN SIZE CURRENTLY MEASURING 5.3 X 3.8 CM (VERSUS 3.7 X 5 CM ON 08/17/2022). FINDINGS SUGGEST GRADUAL DISEASE PROGRESSION. 2. ONGOING MODERATE RIGHT GREATER THAN LEFT PLEURAL EFFUSION ADJACENT ATELECTASIS. 3. DELAYED EXCRETION OF CONTRAST FROM THE KIDNEYS. CORRELATE WITH KIDNEY FUNCTION TO EXCLUDE ANDRES.
== END | disposition home or self-care (01) ==
LOC: RADCTMAIN 11:10
PROVIDERS: ATTEND Internal Medicine Hematology & Oncology
DX: C85.88 Other specified types of non-Hodgkin lymphoma, lymph nodes of multiple sites (principal); J90 Pleural effusion, not elsewhere classified; D70.2 Other drug-induced agranulocytosis; I11.9 Hypertensive heart disease without heart failure; J98.11 Atelectasis; N28.89 Other specified disorders of kidney and ureter; R59.0 Localized enlarged lymph nodes
CPT/HCPCS: 82565; 84520; 71260; 74177; 36415; Q9967

== ENCOUNTER → 2023-06-01 | Outpatient (CLI) | payer MEDICARE ==
[2023-06-01 12:55] LABS: African American GFR (CKD) 87 (>60 ml/min/1.73 sqM); Blood Urea Nitrogen 25 mg/dL (9-20); Non-African American GFR(CKD) 76 (>60 ml/min/1.73 sqM)
--- NOTE | 2023-06-01 18:30 | CT ---
EXAMINATION TYPE: CT ChestAbdPelvis w con CT DLP: 819.5 mGycm, Automated exposure control for dose reduction was used. DATE OF EXAM: 06/01/2023 2:18 PM COMPARISON: 02/23/2023 CLINICAL INDICATION:Male, 88 years old with history of C85.88 LYMPHOMA; [facility], f/u lymphoma Technique: CT ChestAbdPelvis w con; Multiple axial images were obtained. Two-dimensional coronal and sagittal reconstructions were obtained. Contrast used:100 mL of Isovue 300 with IV Contrast, Oral contrast used: with Oral Contrast Findings: CHEST: LUNGS/ PLEURA: Increasing bilateral moderate to large pleural effusions. AIRWAY: Patent and unremarkable. HEART: The heart is enlarged for size. Moderate coronary artery atherosclerosis. No evidence for pulm onary embolus. MEDIASTINUM: No gross evidence of adenopathy. VASCULATURE: No aortic aneurysm. MUSCULOSKELETAL: Mild disc degeneration changes are present throughout the thoracolumbar spine. Other reeves are present. SOFT TISSUES/LYMPH NODES: Unremarkable. LOWER NECK: No significant findings. ABDOMEN: ABDOMEN LIVER: Unremarkable GALLBLADDER AND BILE DUCTS: Unremarkable. PANCREAS: Unremarkable. SPLEEN: Unremarkable. ADRENAL GLANDS: Unremarkable. KIDNEYS AND URETERS: No evidence of hydronephrosis or renal calculus. The ureters are unremarkable. PELVIS BLADDER: Unremarkable REPRODUCTIVE: Unremarkable. ABDOMEN & PELVIS STOMACH AND BOWEL: No evidence of bowel obstruction. Multiple duodenal diverticula present. PERITONEUM: No evidence of pneumoperitoneum or free fluid. Mesenteric mass appears increased in volum e when comparing in coronal imaging now measuring 80 x 46 mm, previously 64 x 35 mm. No additional me senteric masses are visualized. VASCULATURE: No evidence of aortic aneurysm. MUSCULOSKELETAL: No acute osseous abnormalities. Mild disc degeneration changes are present throughou t the thoracolumbar spine. LYMPH NODES: No gross evidence for lymphadenopathy. SOFT TISSUE/ABDOMINAL WALL: Unremarkable IMPRESSION: 1. Increase in size of the bilobed mesenteric mass. Concerning for progression of disease. 2. Increasing bilateral pleural effusions, now moderate to large. 3. Cardiomegaly.
== END | disposition home or self-care (01) ==
LOC: RADCTMAIN 12:23
PROVIDERS: ATTEND Internal Medicine Hematology & Oncology
DX: C85.88 Other specified types of non-Hodgkin lymphoma, lymph nodes of multiple sites (principal); D70.2 Other drug-induced agranulocytosis; R59.0 Localized enlarged lymph nodes; I51.9 Heart disease, unspecified; J90 Pleural effusion, not elsewhere classified; I51.7 Cardiomegaly
CPT/HCPCS: 82565; 84520; 71260; 74177; 36415; Q9967